=== PATIENT | female | born 1970 | race Caucasian/White ===

== ENCOUNTER → 2016-10-27 | Outpatient (CLI) | payer OTHER ==
[~2016-10-27] MED LIST: ALBU18002 INH; ALBU1AER9 INH; AMITIZIA PO; AMITRIPTYLINE PO; AMT24 PO; ATROPINE SULFATE 0.1 MG/ML 5ML SYR ONE; BENZ100C84 PO; BUDE0.5S INH; CETI10TA84 PO; CHOL20009 PO; CLR10 PO; CRG3125 PO; CYM30 PO; DICY10CA12 PO; DOBUTamine HCL 12.5 MG/ML 20 ML VIAL ONE; DOMPERIDONE PO; DOXY100C76 PO; EPIN1INJ37 IM; EPP3/2 IM; FERR1TAB9 PO; FERR325T PO; FLNIN/ NAE; FNTTP50 TOP; HYDR2.5C37 TOP; HYDR4TAB2 PO; INDO75CA PO; INSDGIPEN SC; IPRASOL4 NEB; ISOS30TA35 PO; LACTTAB13 PO; LATA0.009 OP; LATA0.009 OPB; LORA10TA5 PO; LOSA100T65 PO; LPT40 PO; MAGN400T5 PO; MENT1800 TOP; METOPROLOL TARTRATE 1 MG/ML VIAL ONE; MOME100A INH; MOME200A INH; NRN600 PO; NTRGSL4 SL; ONDA8TAB6 PO; OXGN; PERFLUTREN LIPID MICROSPHERE (DEFINITY) IV ONE; PERPHENAZINE PO; PHEN1CAP PO; POLY335019 PO; POLY335040 PO; PRED20TA2 PO; PREG75CA PO; PROM25TA9 PO; PRT/40 PO; RANI150T3 PO; RANI300T PO; RST/30 PO; SENN-104 PO; SITA100T3 PO; SNG10 PO; SOLI10TA2 PO; TEMA30CA4 PO; TRC145 PO; TRMO115 TOP; ZOLP5TAB6 PO; [UNRECOGNIZED DRUG - OTHER] PO
--- NOTE | 2016-10-27 16:42 | DOBUTAMINE ECHO ---
*NOTICE TO RECEIVING REPUBLICAN AGENCY This information is strictly Confidential and protected under [place] law. [place] law prohibits you from making any further disclosure of this information unless further disclosure is expressly permitted by the written consent of the person to whom it pertains or is authorized by law. A general authorization for the release of medical or other information is not sufficient for this purpose. Hospital accepts no responsibility if the information is made available to any other person, INCLUDING THE PATIENT. Interpretation Summary * STRESS STUDY: Normal pharmacologic stress echocardiogram. No echocardiographic or ECG evidence of myocardial ischemia having achieved heart rate adequate for diagnostic purposes. * -- Conclusions -- * STRESS STUDY: Normal pharmacologic stress echocardiogram. No echocardiographic or ECG evidence of myocardial ischemia having achieved heart rate adequate for diagnostic purposes. Procedure Details * DOBUTAMINE ECHO, CPT#86250 * ECHO COLOR FLOW, CPT #11021 * ECHO DOPPLER, CPT #72328 * The study was technically difficult with many images being suboptimal in quality. * A contrast injection of Definity was performed to improve assessment of LV function. * Contrast was injected into an intravenous site in the right arm. * One vial of Definity ultrasound contrast was diluted in normal saline to a total volume of 10 ml. A total of '6' ml of solution was administered during imaging. * Lot # [id number] of Definity utilized for procedure. * Expiration date NOV 24. * The attending nurse who injected the contrast agent was MARK CHAKRABORTY CPL, RN. Left Ventricle * The left ventricle is normal in size. * There is moderate concentric left ventricular hypertrophy. * Ejection Fraction = 50-55%. * The left ventricular wall motion is normal at rest. Right Ventricle * The right ventricle is grossly normal size. * The right ventricular systolic function is normal. Atria * The left atrial size is normal. * Right atrial size is normal. * The interatrial septum is intact with no evidence for an atrial septal defect. Mitral Valve * The mitral valve is grossly normal. * Significant mitral regurgitation is absent. Tricuspid Valve * The tricuspid valve is not well visualized, but is grossly normal. * Significant tricuspid regurgitation is absent. Aortic Valve * The aortic valve is not well visualized. * No hemodynamically significant valvular aortic stenosis. * There is no significant aortic regurgitation. Pulmonic Valve * The pulmonic valve is not well visualized. Great Vessels * The aortic root and proximal ascending aorta are normal sized. Pericardium * There is no pericardial effusion. Stress Parameters * Normal baseline electrocardiogram. * Stress ECG: No ST changes. No arrhythmias. * The stress portion of this study was personally supervised by the undersigned interpreting physician. * Rest heart rate was '77' BPM. * Rest blood pressure was '114/67' * Maximum heart rate achieved was 148 bpm. * Maximum heart rate was 85 % of maximum age-predicted heart rate. * Maximum blood pressure was '141/74' * Maximum Dobutamine infusion rate was '50' mcg/kg/min. * A total of 0.5 mg of intravenous Atropine was used to supplement Dobutamine for heart rate response. * Dobutamine infusion was terminated due to achieving target heart rate * A total of 2.50 mg of IV Metoprolol was administered to reverse Dobutamine-induced tachycardia. MMode 2D Measurements and Calculations IVSd 1.5 cm IVSs 2.2 cm LVIDd 4.4 cm LVIDs 3.4 cm LVPWd 1.3 cm LVPWs 1.1 cm IVS/LVPW 1.2 FS 23.4 % EDV(Teich) 89.1 ml ESV(Teich) 47.1 ml EF(Teich) 47.1 % EDV(cubed) 86.9 ml ESV(cubed) 39.0 ml EF(cubed) 55.1 % % IVS thick 48.3 % % LVPW thick -13.68 % LV mass(C)d 237.5 grams LV mass(C)dI 115.8 grams/m\S\2 LV mass(C)s 217.9 grams LV mass(C)sI 106.2 grams/m\S\2 SV(Teich) 42.0 ml SI(Teich) 20.4 ml/m\S\2 SV(cubed) 47.9 ml SI(cubed) 23.4 ml/m\S\2 Ao root diam 3.2 cm Ao root area 8.1 cm\S\2 ACS 1.8 cm LA dimension 3.5 cm LA/Ao 1.1 LVOT diam 2.0 cm LVOT area 3.3 cm\S\2 LVAd ap4 37.8 cm\S\2 LVLd ap4 9.6 cm EDV(MOD-sp4) 122.7 ml EDV(sp4-el) 125.7 ml LVAs ap4 24.4 cm\S\2 LVLs ap4 7.9 cm ESV(MOD-sp4) 63.8 ml ESV(sp4-el) 64.3 ml EF(MOD-sp4) 48.0 % EF(sp4-el) 48.8 % LVAd ap2 26.5 cm\S\2 LVLd ap2 8.9 cm EDV(MOD-sp2) 67.2 ml EDV(sp2-el) 66.9 ml LVAs ap2 16.5 cm\S\2 LVLs ap2 7.4 cm ESV(MOD-sp2) 31.0 ml ESV(sp2-el) 31.1 ml EF(MOD-sp2) 53.9 % EF(sp2-el) 53.5 % LVLd %diff -7.81 % EDV(MOD-bp) 93.4 ml LVLs %diff -6.61 % ESV(MOD-bp) 45.8 ml EF(MOD-bp) 50.9 % SV(MOD-sp4) 58.9 ml SI(MOD-sp4) 28.7 ml/m\S\2 SV(MOD-sp2) 36.2 ml SI(MOD-sp2) 17.7 ml/m\S\2 SV(MOD-bp) 47.6 ml SI(MOD-bp) 23.2 ml/m\S\2 SV(sp4-el) 61.3 ml SI(sp4-el) 29.9 ml/m\S\2 SV(sp2-el) 35.9 ml SI(sp2-el) 17.5 ml/m\S\2 Doppler Measurements and Calculations MV E max latonia 78.8 cm/sec MV A max lat[place] 81.2 cm/sec MV E/A 0.97 MV P1/2t max lat[place] 103.5 cm/sec MV P1/2t 47.9 msec MVA(P1/2t) 4.6 cm\S\2 MV dec slope 633.6 cm/sec\S\2 MV dec time 0.23 sec PA V2 max 105.9 cm/sec PA max PG 4.5 mmHg
== END | disposition home or self-care (01) ==
LOC: C.CPL 11:39
PROVIDERS: ATTEND Internal Medicine Cardiovascular Disease
DX: Z01.810 Encounter for preprocedural cardiovascular examination (principal); I10 Essential (primary) hypertension; E78.5 Hyperlipidemia, unspecified

== ENCOUNTER 2016-10-30 06:38 | Day surgery (SDC) | payer OTHER ==
[2016-10-16 09:52] VITALS: BMI 53.0
--- NOTE | 2016-10-16 10:44 | PAT Medication Instructions ---
Service Date Oct 16, 2016. Current Home Medication List Albuterol (Proair Hfa), 2 PUFFS INH QID PRN for SOB/Wheezing Atorvastatin (Atorvastatin Calcium), 40 MG PO HS Benzonatate (Tessalon Perles), 1 CAP PO TID PRN for Cough Budesonide (Inhalation) (Pulmicort), 0.5 MG INH DAILY Carvedilol (Carvedilol), 3.125 MG PO BID Cetirizine (Zyrtec), 10 MG PO QAM Cholecalciferol (Vitamin D), 4,000 INTER.UNIT PO HS Dicyclomine Hcl (Dicyclomine Hcl), 10 MG PO TID Doxycycline Monohydrate (Monodox), 100 MG PO BID Duloxetine HCl (Duloxetine HCl), 30 MG PO HS Epinephrine (Epinephrine), 0.3 MG IM UD PRN for ALLERGIC REACTION Fenofibrate (Fenofibrate), 145 MG PO HS Fentanyl (Duragesic), 50 MCG TOP CQ72HR Ferrous Sulfate (Ferrous Sulfate), 325 MG PO BID Ferrous Sulfate Dried (Sm Slow Release Iron), 286 MG PO QAM Fluticasone Propionate (Fluticasone Propionate), 2 SPRAYS OBDULIA DAILY Gabapentin (Gabapentin), 600 MG PO TID Hydrocortisone 2.5% (Rectal) (Anusol-Hc 2.5%), 1 APPLN TOP BID PRN for UNDECIDED Hydromorphone Hcl (Dilaudid), 2 MG PO Q6H PRN for Pain Indomethacin Ext Rel (Indocin Ext Rel), 75 MG PO QAM Insulin Glargine (Lantus Solostar), 23 UNITS SC HS PRN for Elevated Blood Sugar Ipratropium-Albuterol (Duoneb), 1 TREATMENT NEB Q4H PRN for SOB/Wheezing Isosorbide Mononitrate Ext Rel (Imdur Ext Rel), 30 MG PO QAM Latanoprost 0.005% Oph (Xalatan 0.005% Oph), 1 DROP OPB HS Loratadine (Claritin), 10 MG PO QAM Losartan Potassium (Cozaar), 100 MG PO QAM Magnesium Oxide (Mag-Ox), 400 MG PO QAM Menthol (Topical Analgesic) (Biofreeze Roll-On), 1 APPLN TOP QID Mometasone Furoate-Formoterol (Dulera 100/5 Mcg), 1 PUFF INH BID Montelukast Sod (Montelukast Sodium), 10 MG PO HS Oxygen (Oxygen), 2 LITERS NA PRN PRN for Shortness of Breath Pantoprazole (Pantoprazole Sodium), 40 MG PO QAM Polyethylene (Miralax Powder Packet), 17 GM PO QAM Probiotic Product (Bacid), 1 TAB PO BID Promethazine Hcl (Phenergan), 25 MG PO Q6H PRN for Nausea Ranitidine Hcl (Zantac), 300 MG PO BID Sennosides-Docusate Sodium (Senna-S), 3 TABS PO TID Sitagliptin Phosphate (Januvia), 100 MG PO QAM Solifenacin (Vesicare), 10 MG PO QAM Temazepam (Restoril), 30 MG PO HS Triamcinolone Acet (Triamcinolone Acetonide), 1 APPLN TOP BID Zolpidem Tartrate (Zolpidem Tartrate), 5 MG PO HS PRN for Sleep Medication Instructions For Your Scheduled Surgery Epinephrine (Epinephrine), 0.3 MG IM UD PRN for ALLERGIC REACTION (continue as directed) Dicyclomine Hcl (Dicyclomine Hcl), 10 MG PO TID (to be completed prior to surgery) - Hold the following medications 24 hours prior to surgery: Triamcinolone Acet (Triamcinolone Acetonide), 1 APPLN TOP BID Menthol (Topical Analgesic) (Biofreeze Roll-On), 1 APPLN TOP QID Hydrocortisone 2.5% (Rectal) (Anusol-Hc 2.5%), 1 APPLN TOP BID PRN for UNDECIDED Fentanyl (Duragesic), 50 MCG TOP CQ72HR (avoid placement over surgery site) - Hold the following medications the morning of surgery: Solifenacin (Vesicare), 10 MG PO QAM Sitagliptin Phosphate (Januvia), 100 MG PO QAM Ranitidine Hcl (Zantac), 300 MG PO BID Sennosides-Docusate Sodium (Senna-S), 3 TABS PO TID Polyethylene (Miralax Powder Packet), 17 GM PO QAM Probiotic Product (Bacid), 1 TAB PO BID Losartan Potassium (Cozaar), 100 MG PO QAM Magnesium Oxide (Mag-Ox), 400 MG PO QAM Loratadine (Claritin), 10 MG PO QAM Ferrous Sulfate Dried (Sm Slow Release Iron), 286 MG PO QAM Ferrous Sulfate (Ferrous Sulfate), 325 MG PO BID Dicyclomine Hcl (Dicyclomine Hcl), 10 MG PO TID Cetirizine (Zyrtec), 10 MG PO QAM Benzonatate (Tessalon Perles), 1 CAP PO TID PRN for Cough - Take the following medications the morning of surgery with a sip of water ( otherwise nothing to eat or drink after midnight including chewing gum or mints) Promethazine Hcl (Phenergan), 25 MG PO Q6H PRN for Nausea Pantoprazole (Pantoprazole Sodium), 40 MG PO QAM Mometasone Furoate-Formoterol (Dulera 100/5 Mcg), 1 PUFF INH BID Isosorbide Mononitrate Ext Rel (Imdur Ext Rel), 30 MG PO QAM Ipratropium-Albuterol (Duoneb), 1 TREATMENT NEB Q4H PRN for SOB/Wheezing Indomethacin Ext Rel (Indocin Ext Rel), 75 MG PO QAM Hydromorphone Hcl (Dilaudid), 2 MG PO Q6H PRN for Pain (okay to take up to 4 hours prior to surgery if needed) Gabapentin (Gabapentin), 600 MG PO TID Fluticasone Propionate (Fluticasone Propionate), 2 SPRAYS OBDULIA DAILY Carvedilol (Carvedilol), 3.125 MG PO BID Budesonide (Inhalation) (Pulmicort), 0.5 MG INH DAILY Albuterol (Proair Hfa), 2 PUFFS INH QID PRN for SOB/Wheezing (bring with you to hospital morning of surgery) - Hold the following medications as scheduled the night before surgery: Fenofibrate (Fenofibrate), 145 MG PO HS - Take the following medications as scheduled the night before surgery: Zolpidem Tartrate (Zolpidem Tartrate), 5 MG PO HS PRN for Sleep Temazepam (Restoril), 30 MG PO HS Ranitidine Hcl (Zantac), 300 MG PO BID Sennosides-Docusate Sodium (Senna-S), 3 TABS PO TID Promethazine Hcl (Phenergan), 25 MG PO Q6H PRN for Nausea Probiotic Product (Bacid), 1 TAB PO BID Montelukast Sod (Montelukast Sodium), 10 MG PO HS Mometasone Furoate-Formoterol (Dulera 100/5 Mcg), 1 PUFF INH BID Latanoprost 0.005% Oph (Xalatan 0.005% Oph), 1 DROP OPB HS Ipratropium-Albuterol (Duoneb), 1 TREATMENT NEB Q4H PRN for SOB/Wheezing Insulin Glargine (Lantus Solostar), 23 UNITS SC HS PRN for Elevated Blood Sugar Hydromorphone Hcl (Dilaudid), 2 MG PO Q6H PRN for Pain Gabapentin (Gabapentin), 600 MG PO TID Fluticasone Propionate (Fluticasone Propionate), 2 SPRAYS OBDULIA DAILY Ferrous Sulfate (Ferrous Sulfate), 325 MG PO BID Cholecalciferol (Vitamin D), 4,000 INTER.UNIT PO HS Duloxetine HCl (Duloxetine HCl), 30 MG PO HS Dicyclomine Hcl (Dicyclomine Hcl), 10 MG PO TID Carvedilol (Carvedilol), 3.125 MG PO BID Benzonatate (Tessalon Perles), 1 CAP PO TID PRN for Cough Budesonide (Inhalation) (Pulmicort), 0.5 MG INH DAILY Atorvastatin (Atorvastatin Calcium), 40 MG PO HS Albuterol (Proair Hfa), 2 PUFFS INH QID PRN for SOB/Wheezing If you have any questions please call us at [phone] (Jada Owen PA-C) or [phone] or [phone]
[2016-10-16 11:03] LABS: BASO % 0.7 %; BASO ABS # 0.05 K/uL (0-0.2); COMPLETE YES; EOS % 13.3 %; HEMATOCRIT 35.5 % (37-47); IG% 0.4 %; LYMPH % 28.6 %; LYMPH ABS # 2.19 K/uL (1.2-3.4); MEAN CELL VOLUME 98.6 fL (80-100); MEAN CORPUSCULAR HEMOGLOBIN 31.9 pg (25-34); MEAN CORPUSCULAR HGB CONC 32.4 g/dl (32-36); MEAN PLATELET VOLUME 10.8 fL (7.4-10.4); MONO % 4.8 %; NEUT % 52.2 %; PLATELET COUNT 325 K/uL (130-400); WHITE BLOOD COUNT 7.65 K/uL (4.8-10.8)
[2016-10-16 11:09] LABS: MANUAL MICROSCOPIC REQUIRED? YES; URINE APPEARANCE CLOUDY (CLEAR); URINE BILIRUBIN NEG (NEG); URINE NITRITE NEG (NEG); URINE PH 7.5 (4.5-7.5); UROBILINOGEN NEG (NEG)
--- NOTE | 2016-10-16 11:13 | DIAGNOSTIC IMAGING REPORT ---
CHEST PREADMISSION(PA/LAT) CLINICAL HISTORY: PAT preoperative evaluation COMPARISON STUDY: 06/10/2016 FINDINGS: The bones soft tissues and hemidiaphragms are normal. The cardiomediastinal silhouette is normal. The lungs are clear. The pulmonary vasculature is normal. IMPRESSION: Negative chest. Electronically signed by: Ramon Brambila M.D. 10/16/2016 11:11 AM Dictated Date/Time: 10/16/2016 11:11 AM
[2016-10-16 11:50] LABS: REVIEW REQ? NO; SULFASALICYLIC ACID NEG (NEG)
[2016-10-16 11:52] LABS: URINE COLOR RED
[2016-10-16 12:01] LABS: URINE RBC >30 /hpf (0-4)
[2016-10-16 12:02] LABS: URINE BACTERIA 1+ (NEG)
--- NOTE | 2016-10-29 09:23 | HISTORY & PHYSICAL EXAMINATION ---
DATE OF ADMISSION: 10/30/2016 SUBJECTIVE AND CHIEF COMPLAINT: Left shoulder pain. HISTORY OF PRESENT ILLNESS: This is a patient who has a long history of left shoulder pain. She was treated conservatively with physical therapy, antiinflammatory medications, activity modifications, corticosteroid injections; however, she has failed conservative management and she is now being set up for surgical treatment. PAST MEDICAL HISTORY: History of NM, hypertension, hypercholesterolemia, history of palpitations, asthma, COPD, sleep apnea with use of CPAP, history of stroke, multiple sclerosis, diabetes treated with insulin, anemia, history of DVT, spine and back problems, obesity, acid reflux, history of kidney failure, and history of breast, stomach, and uterine cancer. SOCIAL HISTORY: The patient denies alcohol and tobacco use. FAMILY HISTORY: Noncontributory. PAST SURGICAL HISTORY: Bilateral knee surgeries. CURRENT MEDICATIONS: Promethazine 25 mg 1 p.o. q. 6 hours as needed for nausea, Lantus insulin, Dilaudid 2 mg p.o. q. 4 hours as needed for pain, magnesium oxide 400 mg, ProAir HFA 90 mcg 2 puffs every 4 hours as needed for shortness of breath, Xalatan 0.005% eyedrops 1 drop in each eye at bedtime, VESIcare 5 mg 1 p.o. daily, Lipitor 40 mg 1 p.o. daily, gabapentin 600 mg 1 p.o. t.i.d., Imdur 30 mg 1 p.o. daily, losartan 100 mg 1 p.o. daily, Restoril 30 mg 1 p.o. at bedtime, Tricor 145 mg 1 p.o. daily, Singulair 10 mg 1 p.o. daily, Pulmicort 0.5 mg/2 mL suspension for nebulizer 2 mL in the nebulizer 2 times per day, senna with docusate 8.6 mg/50 mg 2 p.o. daily, Claritin Liqui-Gel 10 mg 1 p.o. daily, fentanyl 50 mcg patch 1 patch every 72 hours, pantoprazole 40 mg 1 p.o. daily, EpiPen as needed, triamcinolone 0.1% topical cream apply to affected area b.i.d., Januvia 100 mg 1 p.o. daily, Zyrtec 10 mg 1 p.o. daily, zolpidem 5 mg 1 p.o. daily, Zantac 300 mg 1 p.o. at bedtime, Proctozone-HC 2.5% cream apply to affected area 2-4 times per day, MiraLax daily, Flonase 50 mcg 1-2 sprays in each nostril daily, Dulera 200 mcg/5 mcg 2 puffs b.i.d., doxycycline 100 mg 1 p.o. daily, vitamin D3 400 units p.o. daily, Coreg 3.125 mg 1 p.o. b.i.d., and Voltaren 1% gel apply to affected area 4 times per day. ALLERGIES: PENICILLIN, CELEBREX, NORTRIPTYLINE, MORPHINE, TRAMADOL, OXYCODONE, REGLAN, HYDROCODONE AND BENADRYL. OBJECTIVE AND PHYSICAL EXAMINATION: GENERAL: The patient is alert and oriented x3. She is in no acute distress. She is a well-dressed, well-nourished 45-year-old female. Her affect is appropriate. CARDIOVASCULAR: Heart has a regular rhythm and rate without murmurs. LUNGS: Clear to auscultation bilateral. HEART: Radial pulses +2/4. Cap refill is less than 2 seconds. LYMPHATIC: No evidence of any swollen lymph nodes. MUSCULOSKELETAL: Upon inspection of the patient's left shoulder, there is no significant swelling, ecchymosis or erythema noted. With passive range of motion, she has pain within the impingement arc. She has positive cross-arm impingement testing. Also positive Neer's and positive Bunch sign. She has some weakness with empty can testing in the left upper extremity; however, she is able to resist. SKIN: There are no scars, rashes or ulcers noted. NEUROLOGIC: Sensation normal and intact distally in the ulnar, radial and median nerve distributions. X-RAY EXAM: MRI of the left shoulder notes rotator cuff tendinosis of the supraspinatus tendon. There is also mild subacromial bursitis. There is also AC joint arthritis. ASSESSMENT AND DIAGNOSES: 1. Left shoulder impingement syndrome. 2. Acromioclavicular joint arthritis. 3. Rotator cuff arthropathy. PLAN: Above assessment was discussed with the patient. At this time, it was recommended the patient undergo a left shoulder arthroscopy with debridement of rotator cuff, subacromial decompression with acromioplasty, and distal clavicle excision. All potential risks, benefits, complications, alternatives, and rehab have been discussed with the patient. At this time, she wishes to proceed with surgery as indicated. She will be scheduled for the surgery on 10/30/2016.
[~2016-10-30] VITALS: Ht 165.1 cm; Wt 145.8 kg
[~2016-10-30 06:38] MED LIST changes: -ALBU18002 INH; -AMT24 PO; -ATROPINE SULFATE 0.1 MG/ML 5ML SYR ONE; +BUPIVACAINE 0.5 % 5 MG/1 ML PF 10ML VIAL ONE; +CLINDAMYCIN 600 MG/54 ML D5W IV SCH; -CLR10 PO; -DOBUTamine HCL 12.5 MG/ML 20 ML VIAL ONE; -EPP3/2 IM; +LACTATED RINGER'S 1000ML 1,000 ML IV SCH; -LATA0.009 OP; -METOPROLOL TARTRATE 1 MG/ML VIAL ONE; -MOME200A INH; -NTRGSL4 SL; -ONDA8TAB6 PO; -PERFLUTREN LIPID MICROSPHERE (DEFINITY) IV ONE; -PHEN1CAP PO; -POLY335019 PO; -PRED20TA2 PO; -PREG75CA PO; -RANI150T3 PO; -TEMA30CA4 PO
[2016-10-30 08:22] VITALS: BP 148/70; PULSE 75; TEMP 36.5; O2SAT 96; Ht 165.1 cm; Wt 145.8 kg
[2016-10-30] MEDS ORDERED: GLYCOPYRROLATE INJ 0.2 MG/ML VIAL ONE ×2 (08:30→12:19)
[2016-10-30] MEDS ORDERED: ROCURONIUM BROMIDE 10 MG/ML 5 ML VIAL ONE (08:30)
[2016-10-30] MEDS ORDERED: FENTANYL CITRATE INJ 50 MCG/1 ML 2 ML VIAL ONE ×2 (08:30→11:12)
[2016-10-30] MEDS ORDERED: ONDANSETRON INJ 2 MG/ML 2 ML VIAL ONE (08:30)
[2016-10-30] MEDS ORDERED: PROPOFOL IV EMULSION 10 MG/ML 20 ML VIAL IV ONE ×3 (08:30→13:33)
[2016-10-30] MEDS ORDERED: LIDOCAINE HCL 2% 2 ML VIAL (20MG/ML) ONE (08:30)
[2016-10-30] MEDS ORDERED: DEXAMETHASONE SOD INJ 4 MG/ML VIAL ONE (08:30)
[2016-10-30] MEDS ORDERED: NEOSTIGMINE METHYLSULFATE 5 MG/5 ML SYR ONE (08:30)
[2016-10-30] MEDS ORDERED: MIDAZOLAM HCL 1 MG/ML 2ML VIAL ONE ×2 (08:31→10:06)
[2016-10-30] MEDS ORDERED: EpHEDrine SULFATE INJ 50 MG/ML AMP IV PRN (09:15)
[2016-10-30] MEDS ORDERED: MEPERIDINE HCL 25 MG/ML CARP IV PRN (09:15)
[2016-10-30] MEDS ORDERED: ATROPINE SULFATE 0.1 MG/ML 5ML SYR IV PRN (09:15)
[2016-10-30] MEDS ORDERED: ONDANSETRON INJ 2 MG/ML 2 ML VIAL IV PRN (09:15)
[2016-10-30] MEDS ORDERED: HYDROmorphone INJ 1 MG/ML SYR IV PRN ×2 (09:15→13:15)
[2016-10-30] MEDS ORDERED: LABETALOL HCL IV 5 MG/ML 20ML IV PRN (09:15)
[2016-10-30] MEDS ORDERED: FENTANYL CITRATE INJ 50 MCG/1 ML 2 ML VIAL IV PRN (09:15)
--- NOTE | 2016-10-30 10:10 | History & Physical Bridge Note ---
H&P Re-Evaluation Bridge Note: I have examined the patient, reviewed the History & Physical and in the interval since the performance of the History & Physical I have noted the following changes of clinical significance: No changes noted
[2016-10-30] MEDS ORDERED: BACITRACIN 50000 UNIT VIAL ONE (10:48)
[2016-10-30] MEDS ORDERED: BUPIVACAINE/EPINEPHRINE 0.25% 1:200,000 30 ML VIAL ONE (10:48)
[2016-10-30] MEDS ORDERED: SUCCINYLCHOLINE 100MG/5ML SYR IV ONE (11:12)
[2016-10-30] MEDS ORDERED: EpHEDrine SULFATE 50MG/5ML SYR ONE (11:12)
[2016-10-30] MEDS ORDERED: PHENYLEPHRINE 100MCG/ML 5ML SYR ONE (11:12)
[2016-10-30] MEDS ORDERED: PHENYLEPHRINE HCL INJ 10 MG/ML VIAL ONE (12:11)
--- NOTE | 2016-10-30 13:02 | Discharge Instructions ---
Discharge Instructions Date of Service Oct 30, 2016. Admission Reason for Admission: Left Shoulder Impingement Syndrome, Rtc Arthropath Discharge Discharge Diagnosis / Problem: left shoulder impingement syndrome Discharge Goals Goal(s): Decrease discomfort, Improve function Activity Recommendations Activity Limitations: per Instructions/Follow-up section . Instructions / Follow-Up Instructions / Follow-Up U DISCHARGE INSTRUCTIONS: SHOULDER ARTHROSCOPY with Distal Clavicle Excision SELF CARE INSTRUCTIONS AFTER: A. You are allowed to use your arm actively as comfort allows. Recommend NOT doing repetitive overhead activity or heavy lifting. B. You should start Physical Therapy within 1-3 days from your surgery. You will be provided a prescription with specific restrictions, if needed, at time of discharge. C. Continue the sling for comfort for 14 days after surgery. A. At 48 hours post-operatively, you may change your dressing. . (Leave white steri-strips intact if present). Use band-aids and change daily. You are allowed to shower at this time and get the incision area wet, but DO NOT soak or submerge incision area in water. (No baths, swimming pools, hot tubs) B. Do NOT apply soap or any ointment/lotions directly over incision. C. You may use ice as needed to operative shoulder SPECIAL CARE INSTRUCTIONS: VERY IMPORTANT TO READ AND REVIEW A. There are a few signs you need to watch for after you are home. Call [facility] at [phone] if you experience any of the following: a. Increased severe shoulder pain. Some pain is expected especially when you exercise b. Increased swelling in your shoulder or arm; pain or swelling in either upper extremity. (Note: swelling and stiffness is normal and expected for several weeks post op, depending on type of shoulder surgery you had). c. Any fluid or drainage from the incision; redness of the incision. d. Shortness of breath or chest pain. B. Please call [facility] at [phone] if you have any questions or concerns about your operation or recovery. C. Call your physician if: a. Temperature is greater than 101 degrees (F). b. Pain is not relieved by prescribed pain medications. c. Increase drainage or redness from incision. d. Unanswered questions or concerns. D. Pain Medication: a. You will be prescribed pain medication upon discharge that should last till your first post-operative appointment. b. You may also take Advil or Ibuprofen between medication doses if you do not have any contraindication to taking them. c. You may also take Advil or Ibuprofen in place of your pain medication if the pain is tolerable. d. If you experience nausea and/or skin rash, discontinue this medication and contact our office for an alternative medication. e. Caution- narcotic pain medication can cause constipation. FOLLOW UP VISIT: Please call [facility] at [phone] to schedule a follow up appointment 10-14 days from your surgery date. Current Hospital Diet Patient's current hospital diet: Discharge Diet Recommended Diet: Diabetes Type 1 Diet Procedures Procedures Performed: Left Shoulder Arthroscopic Subacromial Decompression, Acromioplasty, Distal Clavicle Excision, Debridement, Rotator Cuff Pending Studies Studies pending at discharge: no Medical Emergencies . Who to Call and When: Medical Emergencies: If at any time you feel your situation is an emergency, please call 911 immediately. . Non-Emergent Contact Non-Emergency issues call your: Surgeon Call Non-Emergent contact if: temperature is above 101, your pain is not controlled, your pain is worsening, wound has increased drainage, wound has increased redness . "Provider Documentation" section prepared by Sy Frederick. VTE Core Measure Inpt VTE Proph given/why not?: Treatment not indicated
--- NOTE | 2016-10-30 13:34 | [facility] Post Operative Brief Note ---
Immediate Operative Summary Operative Date Oct 30, 2016. Pre-Operative Diagnosis Left shoulder impingement syndrome, acromioclavicular joint degenerative joint disease, rotator cuff arthropathy Post-Operative Diagnosis Left shoulder impingement syndrome, acromioclavicular joint degenerative joint disease, partial tear rotator cuff articular surface 40%, partial tear glenoid labrum, synovitis glenohumeral joint, rotator cuff arthropathy Procedure(s) Performed Left Shoulder Arthroscopic Subacromial Decompression with Acromioplasty, Distal Clavicle Excision, Debridement Rotator Cuff, Debridement Glenoid Labrum, Synovectomy Glenohumeral fransicolint Surgeon Dr. Matson Supervisor [employer] Surgeon(s) Sy Frederick PA-C Estimated Blood Loss 3cc Findings See Dict Specimens None Drains None Anesthesia GLMA w/ interscalene block Complication(s) None Disposition Recovery Room / PACU
--- NOTE | 2016-10-30 14:15 | Anesthesiology Progress Note ---
Anesthesia Post Op Note Date & Time Oct 30, 2016 at 14:16 Vital Signs Pain Intensity: 0 Vital Signs Past 12 Hours Date Time Temp Pulse Resp B/P Pulse Ox O2 Delivery O2 Flow Rate FiO2 10/30/16 14:05 82 16 94/50 96 Room Air 10/30/16 13:55 87 16 92/53 100 Nasal Cannula 2 10/30/16 13:45 82 16 90/47 100 Mask 10 10/30/16 13:35 84 16 103/60 100 Mask 10 10/30/16 13:27 36.6 93 16 89/56 93 Mask 10 10/30/16 08:22 36.5 75 18 148/70 96 Room Air Notes Mental Status: alert / awake / arousable, participated in evaluation Pt Amnestic to Procedure: Yes Nausea / Vomiting: adequately controlled Pain: adequately controlled Airway Patency, RR, SpO2: stable & adequate BP & HR: stable & adequate Hydration State: stable & adequate Anesthetic Complications: no major complications apparent
[2016-10-30 14:40] VITALS: BP 95/53; PULSE 91; TEMP 36.6; O2SAT 93
[2016-10-30 15:10] VITALS: BP 110/53; PULSE 74; TEMP 36.3; O2SAT 95
[2016-10-30 15:40] VITALS: BP 103/52; PULSE 83; TEMP 36.4; O2SAT 98
--- NOTE | 2016-10-30 20:36 | OPERATIVE REPORT ---
DATE OF OPERATION: 10/30/2016 PREOPERATIVE DIAGNOSES: 1. Left shoulder rotator cuff arthropathy, possible partial tear. 2. Subacromial impingement syndrome. 3. Acromioclavicular joint degenerative joint disease. POSTOPERATIVE DIAGNOSES: 1. Left shoulder partial tear of the rotator cuff, glenohumeral surfaces involving 40%. 2. Partial tear of the glenoid labrum with a stable biceps anchor. 3. Subacromial impingement syndrome. 4. Acromioclavicular joint degenerative joint disease. 5. Synovitis of the shoulder. PROCEDURES: 1. Left shoulder arthroscopy with debridement of the articular surface rotator cuff. 2. Debridement of the glenoid labrum. 3. Synovectomy. 4. Subacromial decompression with acromioplasty. 5. Distal clavicle excision of 10 mm distal clavicle. SURGEON: Gian Matson DO VALIDATION CONSULTANT: GIANFRANCO Day who was present for patient positioning, sterile prep and drape, management of retractors and instruments. He was present through the critical portions of the case including wound closure, application of sterile dressing and transport of the patient to recovery. ANESTHESIA: General LMA with interscalene block. SPECIMENS: None. DRAINS: None. COMPLICATIONS: None. BLOOD LOSS: 3 mL. PERTINENT HISTORY OF PRESENT ILLNESS: This is a 45-year-old female who has had progressive ongoing left shoulder pain for the last several years. It has been attempted to be treated conservatively with home exercises, physical therapy, observation therapy, steroid injections, and lifestyle modification. The patient continued to have significant pain which has awakened her from sleep and limited her activities of daily living. She had an MRI which demonstrated at least a partial tear of the rotator cuff with cuff arthropathy, subacromial impingement, and AC joint degenerative joint disease. The patient was scheduled for surgery as indicated. All potential risks, benefits, complications, alternatives, rehab, potential for incomplete relief of symptoms, need for further surgery, DVT, PE, , persistent pain, swelling, scarring, weakness, neurovascular injury, wound complications were discussed with the patient. The patient decided to proceed with the procedure as indicated. DESCRIPTION OF PROCEDURE: After interscalene block was administered in the preop holding area, the patient was then taken to the operative suite and placed supine on the operating room table. I reviewed the consent and identification of proper operative site, the patient was anesthetized, LMA was placed. Next, the patient was then placed in the [facility] positioner and she was placed in the beach chair position with the left upper extremity being sterilely prepped and draped in usual fashion. Next, 18-gauge spinal needle was inserted into the posterior soft spot portal of the shoulder followed by injection of approximately 20 mL of 0.5% Marcaine with epinephrine. Next, an 11 blade scalpel incision was made posteriorly followed as a blunt trocar and sleeve camera and inflow. Next, under direct visualization, anterior portal site was developed using 18-gauge spinal needle passed adjacent to the coracoid process. Next, the blunt-tipped probe was inserted anteriorly. Next, sequential diagnostic arthroscopy commenced noting intact biceps tendon and no significant tenosynovitis. There was noted to be partial tearing of the glenoid labrum with an intact and stable biceps anchor. Next, there was noted to be a partial surface rotator cuff tear involving the supraspinatus and infraspinatus approximately 40% of the cuff. This was marked using an 18-gauge spinal needle Followed by placement of loop PDS #1. Next, a 4.5 mm sucker shaver was then used to debride the undersurface of the rotator cuff to stable tissue. There was maintenance of the rotator cuff cable. Next, attention was then directed toward the glenoid and the glenoid labrum was then debrided using a 4.5 mm sucker shaver and an Arthrocare ablation wand. Next, there was also noted to be synovitis throughout the shoulder joint. Synovectomy was performed with a whirlwind ablation wand. The articular surfaces of the humeral head and the glenoid noted to be stable. There was no significant articular surface defects of the humerus or the glenoid. The inferior gutter was noted to be intact without excessive laxity or patulous tissue. No loose bodies in the inferior aspect of the shoulder joint capsule. Next, the arthroscope was then directed into the subacromial space posteriorly and using 18-gauge spinal needle, the lateral portal placement was established and then incised with an 11 blade scalpel. This was then followed by placement of blunt trocar and sleeve. Next, upon first look, arthroscopy was noted to be significant bursitis in the subacromial bursa. A 4.5 mm sucker shaver was then used to perform a bursectomy in the subacromial space. Next, after this was completed, there was noted to be a large anterior spur of the acromion with downsloping laterally. There was also noted to be prominence of the distal clavicle. At this point, the rotator cuff was evaluated with a blunt probe noted to be stable and intact at least 60% of the rotator cuff appeared to be intact on the bursal surface. Next, the PDS suture was then withdrawn. There was to be no formal rotator cuff repair. Next, the 5.5 mm barrel bur was then used to perform acromioplasty. Next, the 5.5 mm barrel bur was then used to perform a distal clavicle excision, removing approximately 10 mm of distal clavicle. First to the lateral portal, then to be finished through the anterior portal under direct visualization. All particulate debris was then flushed in the subacromial space. Next, the instruments were removed from the shoulder. All excess lavage solution was removed from the joint and the bursal space and this was then followed by closure of the portal sites with interrupted 3-0 Vicryl and 3-0 nylon sutures followed by placement of a sterile compressive dressing. The patient was then placed in a sling. She was awakened and then taken to recovery in stable condition. I attest to the content of the Intraoperative Record and any orders documented therein. Any exceptions are noted below. SHANNON
[2016-11-27] MEDS ORDERED: ONDA8TAB6 PO (10:00)
[2016-11-27] MEDS ORDERED: PHEN1CAP PO (10:00)
[2016-12-09] MEDS ORDERED: ALBU18002 INH (05:39)
[2016-12-09] MEDS ORDERED: POLY335019 PO (05:43)
[2016-12-09] MEDS ORDERED: HYDR2.5C37 TOP (05:45)
[2016-12-13] MEDS ORDERED: NTRGSL4 SL (09:28)
== END 2016-10-30 16:05 | disposition home or self-care (01) ==
LOC: C.ACU 06:38
PROVIDERS: ATTEND Orthopaedic Surgery Sports Medicine
DX: M75.112 Incomplete rotator cuff tear or rupture of left shoulder, not specified as traumatic (principal); S43.402A Unspecified sprain of left shoulder joint, initial encounter; M75.42 Impingement syndrome of left shoulder; M19.012 Primary osteoarthritis, left shoulder; M65.812 Other synovitis and tenosynovitis, left shoulder; X58.XXXA Exposure to other specified factors, initial encounter; J44.9 Chronic obstructive pulmonary disease, unspecified; G47.33 Obstructive sleep apnea (adult) (pediatric); I25.2 Old myocardial infarction; I25.10 Atherosclerotic heart disease of native coronary artery without angina pectoris; I10 Essential (primary) hypertension; Z86.718 Personal history of other venous thrombosis and embolism; Z86.73 Personal history of transient ischemic attack (TIA), and cerebral infarction without residual deficits; E11.9 Type 2 diabetes mellitus without complications; E78.00 Pure hypercholesterolemia, unspecified; J45.909 Unspecified asthma, uncomplicated; G35 Multiple sclerosis; Z85.3 Personal history of malignant neoplasm of breast; Z85.028 Personal history of other malignant neoplasm of stomach; Z85.42 Personal history of malignant neoplasm of other parts of uterus; Z79.4 Long term (current) use of insulin; Z79.899 Other long term (current) drug therapy; Z88.0 Allergy status to penicillin; Z88.5 Allergy status to narcotic agent

== ENCOUNTER → 2016-12-01 | Day surgery (SDC) | payer OTHER ==
[2016-11-27 10:02] VITALS: BMI 53.0
[~2016-12-01] VITALS: Ht 165.1 cm; Wt 144.6 kg
[~2016-12-01] MED LIST changes: +ALBU18002 INH; +AMT24 PO; -BUPIVACAINE 0.5 % 5 MG/1 ML PF 10ML VIAL ONE; -CLINDAMYCIN 600 MG/54 ML D5W IV SCH; +CLR10 PO; +EPP3/2 IM; +FERR1TAB62 PO; -FERR325T PO; -LACTATED RINGER'S 1000ML 1,000 ML IV SCH; +LATA0.009 OP; +MOME200A INH; +NTRGSL4 SL; +ONDA8TAB6 PO; +PANT40TA2 PO; +PHEN15CA PO; +POLY335019 PO; +PRED20TA2 PO; +PREG75CA PO; -PRT/40 PO; +RANI150T3 PO; +SODIUM CHLORIDE 0.9% 500ML 500 ML IV ONE; +TEMA30CA4 PO
[2016-12-01 08:12] VITALS: Ht 165.1 cm; Wt 144.6 kg
--- NOTE | 2016-12-01 08:52 | Endo History and Physical ---
History & Physical Date of Service: Dec 01, 2016. Chief Complaint: HIATAL HERNIA HX OF ULCERS GASTROPARESIS Referring Physician: DR CYR History of Present Illness nausea/ regurgitation Past Medical History Diabetes, Angioplasty/Stent, Arthritis, Fractures, Pulmonary Emboli, Reflux, Cancer, Heart Disease, Syncopal Episodes, CHF, COPD, Kidney Disease, CVA/TIA, Depression Past Surgical History Hx Cardiac Surgery: Yes (HEART CATH ANGIOPLASTY, CARDIOVERSION) Hx Internal Defibrillator: No Hx Pacemaker: No Hx Abdominal Surgery: Yes (LAPAROSCOPY) Hx of Implantable Prosthesis: No Hx Post-Op Nausea and Vomiting: No Hx Cancer Surgery: Yes (PARTIAL LISA, BILATERAL BREAST LUMPECTOMY, PARTIAL GASTRECTOMY) Hx Thoracic Surgery: No Hx Orthopedic: Yes (LT SHOULDER, ORIF LT ANKLE AND HARDWARE REMOVAL,RT/LT CTR, RT KNEE SCOPE X3) Hx Urinary Tract Surgery: No Family History Colon CA Social History Smoking Status: Former Smoker Hx Substance Use: No Hx Alcohol Use: No Allergies Coded Allergies: Bee Venom (Verified Allergy, Severe, THROAT SWELLS, 12/01/16) Morphine (Verified Allergy, Severe, ANAPHYLAXIS, 12/01/16) Morphine and Related (Verified Allergy, Severe, ANAPHYLAXIS, 12/01/16) Wasp Venom Protein (Verified Allergy, Severe, THROAT SWELLS, 12/01/16) Adhesives (Verified Allergy, Intermediate, RASH, 12/01/16) Celecoxib (Verified Allergy, Intermediate, HIVES, 12/01/16) Codeine (Verified Allergy, Intermediate, HIVES, 12/01/16) Hydrocodone (Verified Allergy, Intermediate, HIVES, 12/01/16) Oxycodone (Verified Allergy, Intermediate, HIVES, 12/01/16) Penicillins (Verified Allergy, Intermediate, HIVES, 12/01/16) Salicylates (Verified Allergy, Intermediate, GI SYMPTOMS, 12/01/16) Tramadol (Verified Allergy, Intermediate, HIVES, 12/01/16) Nortriptyline (Verified Allergy, Unknown, UNKNOWN, 12/01/16) Metoclopramide (Verified Adverse Reaction, Intermediate, HYPERACTIVITY, ) NSAIDs (Verified Adverse Reaction, Intermediate, HIVES, DYSPEPSIA, 12/01/16 ) Celebrex (hives), Valdecoxib (hives), Vioxx (hives), salicylates (dyspepsia) per PCP records Diphenhydramine (Verified Adverse Reaction, Mild, Difficulty urinating, ) Current Medications Reported Home Medications Medications Dose Route/Sig Max Daily Dose Days Date Category Dose Instructions Zofran (Ondansetron HCl) 8 Mg Tab 8 Mg PO QID 11/27/16 Reported Phentermine Hcl 15 Mg Cap 1 Cap PO QAM 11/27/16 Reported Oxygen Gas 2 Liters NA PRN PRN 10/16/16 Reported Bacid (Probiotic Product) 1 Tab Tab 1 Tab PO BID 10/16/16 Reported Indocin Ext Rel (Indomethacin) 75 Mg Capcr 75 Mg PO QAM 10/16/16 Reported Tessalon Perles (Benzonatate) 100 Mg Cap 1 Cap PO TID PRN 10/16/16 Reported Monodox (Doxycycline Monohydrate) 100 Mg Cap 100 Mg PO BID 10/16/16 Reported Vesicare (Solifenacin) 10 Mg Tab 10 Mg PO QAM 10/16/16 Reported Gabapentin 600 Mg Tab 600 Mg PO TID 08/23/16 Reported Epinephrine 0.3 Mg/0.3 Ml Inj 0.3 Mg IM UD PRN 08/23/16 Reported Lantus Solostar (Insulin Glargine) 100 Unit/Ml Inj 23 Units SC HS PRN 08/23/16 Reported ADMINISTER MD DIRECTS Duragesic (Fentanyl) 50 Mcg Tdsy 50 Mcg TOP [id number] 08/23/16 Reported Zantac (Ranitidine Hcl) 300 Mg Tab 300 Mg PO BID 08/23/16 Reported Montelukast Sodium (Montelukast Sod) 10 Mg Tab 10 Mg PO HS 08/23/16 Reported Fluticasone Propionate 120 Sprays/6000 Mcg Inha 2 Sprays OBDULIA DAILY 08/23/16 Reported Fenofibrate 145 Mg Tab 145 Mg PO HS 08/23/16 Reported Imdur Ext Rel (Isosorbide Mononitrate) 30 Mg Tabcr 30 Mg PO QAM 08/23/16 Reported Atorvastatin Calcium (Atorvastatin) 40 Mg Tab 40 Mg PO HS 08/23/16 Reported Carvedilol 3.125 Mg Tab 3.125 Mg PO BID 08/23/16 Reported Ferrous Sulfate 325 Mg Tab 325 Mg PO BID 08/23/16 Reported Pantoprazole Sodium (Pantoprazole) 40 Mg Tab 40 Mg PO QAM 08/23/16 Reported TAKE THIS MEDICATION ONCE DAILY 30 MINUTES BEFORE BREAKFAST Claritin (Loratadine) 10 Mg Tab 10 Mg PO QAM 08/23/16 Reported Duloxetine HCl 30 Mg Cap 30 Mg PO HS 08/23/16 Reported Cozaar (Losartan Potassium) 100 Mg Tab 100 Mg PO QAM 08/23/16 Reported Restoril (Temazepam) 30 Mg Cap 30 Mg PO HS 08/23/16 Reported Zolpidem Tartrate 5 Mg Tab 5 Mg PO HS PRN 06/10/16 Reported TAKE THIS MEDICATION 30-60 MINUTES PRIOR TO SLEEP Triamcinolone Acetonide (Triamcinolone Acet) 45 Appln/15 Gm Oint 1 Appln TOP BID 05/03/16 Reported Pulmicort (Budesonide (Inhalation)) 0.5 Mg/2 Ml Joanna 0.5 Mg INH DAILY 05/03/16 Reported Zyrtec (Cetirizine HCl) 10 Mg Tab 10 Mg PO QAM 05/03/16 Reported Dilaudid (Hydromorphone Hcl) 4 Mg Tab 2 Mg PO Q6H PRN 05/03/16 Reported Xalatan 0.005% Oph (Latanoprost) Soln 1 Drop OPB HS 03/10/16 Reported Duoneb (Ipratropium-Albuterol) 3 Ml Nebu 1 Treatment NEB Q4H PRN 03/10/16 Reported Dulera 100/5 Mcg (Mometasone Furoate-Formoterol) 1 Aer Aer 1 Puff INH BID 11/14/15 Reported Biofreeze Roll-On (Menthol (Topical Analgesic)) 4 % Gel 1 Appln TOP QID 11/14/15 Reported Senna-S (Sennosides-Docusate Sodium) 1 Tab Tab 3 Tabs PO TID 11/14/15 Reported Phenergan (Promethazine HCl) 25 Mg Tab 25 Mg PO Q6H PRN 10/27/15 Reported Sm Slow Release Iron (Ferrous Sulfate Dried) 143 Mg Tab 286 Mg PO QAM 10/27/15 Reported Dicyclomine Hcl 10 Mg Cap 10 Mg PO TID 10/27/15 Reported Januvia (Sitagliptin Phosphate) 100 Mg Tab 100 Mg PO QAM 10/04/15 Reported Vitamin D (Cholecalciferol) 2,000 Unit Tab 4,000 Inter.unit PO HS 08/29/15 Reported Mag-Ox (Magnesium Oxide) 400 Mg Tab 400 Mg PO QAM 05/19/12 Reported Miralax Powder Packet (Polyethylene) 17 Gm Pack 17 Gm PO QAM 05/19/12 Reported Proair Hfa (Albuterol) Aers 2 Puffs INH QID PRN 03/19/09 Reported Vital Signs Weight (Kilograms): 144.55 Height (Feet): 5 Height (Inches): 5 Date Time Temp Pulse Resp B/P Pulse Ox O2 Delivery O2 Flow Rate FiO2 12/01/16 08:19 36.9 92 20 98/66 97 Room Air Physical Exam General Appearance: no apparent distress Respiratory/Chest: Auscultation: breath sounds normal Cardiovascular: Heart Auscultation: RRR Abdomen: Inspection & Palpation: soft Liver: non-tender Assessment and Plan stable for EGD
--- NOTE | 2016-12-01 09:07 | Discharge Instructions ---
Endoscopy Patient Instructions Date / Procedure(s) Performed Dec 01, 2016. EGD Allergy Information Coded Allergies: Bee Venom (Verified Allergy, Severe, THROAT SWELLS, 12/01/16) Morphine (Verified Allergy, Severe, ANAPHYLAXIS, 12/01/16) Morphine and Related (Verified Allergy, Severe, ANAPHYLAXIS, 12/01/16) Wasp Venom Protein (Verified Allergy, Severe, THROAT SWELLS, 12/01/16) Adhesives (Verified Allergy, Intermediate, RASH, 12/01/16) Celecoxib (Verified Allergy, Intermediate, HIVES, 12/01/16) Codeine (Verified Allergy, Intermediate, HIVES, 12/01/16) Hydrocodone (Verified Allergy, Intermediate, HIVES, 12/01/16) Oxycodone (Verified Allergy, Intermediate, HIVES, 12/01/16) Penicillins (Verified Allergy, Intermediate, HIVES, 12/01/16) Salicylates (Verified Allergy, Intermediate, GI SYMPTOMS, 12/01/16) Tramadol (Verified Allergy, Intermediate, HIVES, 12/01/16) Nortriptyline (Verified Allergy, Unknown, UNKNOWN, 12/01/16) Metoclopramide (Verified Adverse Reaction, Intermediate, HYPERACTIVITY, ) NSAIDs (Verified Adverse Reaction, Intermediate, HIVES, DYSPEPSIA, 12/01/16 ) Celebrex (hives), Valdecoxib (hives), Vioxx (hives), salicylates (dyspepsia) per PCP records Diphenhydramine (Verified Adverse Reaction, Mild, Difficulty urinating, ) Discharge Date / Findings Dec 01, 2016. normal EGD Medication Instructions Stopped Medication(s): NONE Provider Instructions Activity Restrictions - No exercising or heavy lifting for 24 hours. - Do not drink alcohol the day of the procedure. - Do not drive a car or operate machinery until the day after the procedure. - Do not make any important decisions or sign important papers in 24 hours after the procedure. Following Day: - Return to full activity which may include returning to work/school. Diet Start your diet with liquids and light foods (jello, soup, juice, toast). Then eat your usual diet if not nauseated. Treatment For Common After Affects For mild abdominal pain, bloating, or excessive gas: - Rest - Eat lightly - Lie on right side Follow-Up Information Follow-up with DR CYR as scheduled Anesthesia Information What You Should Know You have had a procedure that required some medicine to reduce anxiety and discomfort. This treatment is called moderate sedation. After receiving the treatment, you may be sleepy, but you will be able to breathe on your own. The effects of the treatment may last for several hours. Follow these instructions along with Activity/Diet recommendations noted above: * Do NOT do anything where dizziness or clumsiness would be dangerous. * Rest quietly at home today, then you can be up and about tomorrow. * Have a responsible person stay with you the rest of today. * You may have had an I.V. today. If so, you may take the dressing off later today. Recommendations Call your doctor if: * Trouble breathing * Continuous vomiting for more than 24 hours * Temperature above 101 degrees * Severe abdominal pain or bloating * Pain not relieved by pain medicine ordered * There is increased drainage or redness from any incision * A large amount of rectal bleeding greater than 2-3 tablespoons. (If you had a polyp/s removed or have hemorrhoids, a small amount of blood - from the rectum is to be expected.) * You have any unanswered questions or concerns. IN THE EVENT OF A SERIOUS EMERGENCY, GO TO THE NEAREST EMERGENCY ROOM Your discharge instructions were prepared by provider Derick Richter. Patient Instructions Signature Page Rossana Guevara Patient (or Guardian) Signature/Date: I have read and understand the instructions given to me by my caregivers. Caregiver/RN/Doctor Signature/Date: The above-named patient and/or guardian has received patient instructions on this date. + Original Patient Signature Page (only) stays with chart. Please make copy for patient.
--- NOTE | 2016-12-01 09:11 | GI REPORT ---
Procedure Date: 12/01/2016 8:40 AM Procedure: Upper GI endoscopy Indications: Heartburn, Nausea, Regurgitation Medicines: See the Anesthesia note for documentation of the administered medications Complications: No immediate complications. Estimated Blood Loss: Estimated blood loss: none. Procedure: Pre-Anesthesia Assessment: - Prior to the procedure, a History and Physical was performed, and patient medications, allergies and sensitivities were reviewed. The patient's tolerance of previous anesthesia was reviewed. - The risks and benefits of the procedure and the sedation options and risks were discussed with the patient. All questions were answered and informed consent was obtained. - Patient identification and proposed procedure were verified prior to the procedure by the physician and the nurse. The procedure was verified in the pre-procedure area. - Pre-procedure physical examination revealed no contraindications to sedation. - After reviewing the risks and benefits, the patient was deemed in satisfactory condition to undergo the procedure. After obtaining informed consent, the endoscope was passed under direct vision. Throughout the procedure, the patient's blood pressure, pulse, and oxygen saturations were monitored continuously. The scope was introduced through the mouth, and advanced to the third part of duodenum. The upper GI endoscopy was accomplished without difficulty. The patient tolerated the procedure well. Findings: The esophagus was normal. A small amount of food (residue) was found in the gastric body. The examined duodenum was normal. The cardia and gastric fundus were normal on retroflexion. Impression: - Normal esophagus. - A small amount of food (residue) in the stomach. - The stomach was otherwise normal. - Normal examined duodenum. - No specimens collected. Recommendation: - Discharge patient to home. Derick Richter M.D. Derick Richter MD 12/01/2016 9:10:19 AM This report has been signed electronically. Note Initiated On: 12/01/2016 8:40 AM I attest to the content of the Intraoperative Record and orders documented therein, exceptions below
[2016-12-01 09:41] VITALS: BP 91/57; PULSE 92; O2SAT 95
--- NOTE | 2016-12-01 09:58 | Anesthesiology Progress Note ---
Anesthesia Post Op Note Date & Time Dec 01, 2016 at 09:57 Vital Signs Pain Intensity: 0 Vital Signs Past 12 Hours Date Time Temp Pulse Resp B/P Pulse Ox O2 Delivery O2 Flow Rate FiO2 12/01/16 09:41 92 20 91/57 95 Room Air 12/01/16 09:25 65 20 84/61 98 Mask 10 12/01/16 09:10 65 20 80/62 98 Mask 10 12/01/16 08:19 36.9 92 20 98/66 97 Room Air Notes Mental Status: alert / awake / arousable, participated in evaluation Pt Amnestic to Procedure: Yes Nausea / Vomiting: adequately controlled Pain: adequately controlled Airway Patency, RR, SpO2: stable & adequate BP & HR: stable & adequate Hydration State: stable & adequate Anesthetic Complications: no major complications apparent Pt doing well.
== END | disposition home or self-care (01) ==
LOC: C.GI 07:24
PROVIDERS: ATTEND Internal Medicine Gastroenterology
DX: R12 Heartburn (principal); R11.2 Nausea with vomiting, unspecified; G35 Multiple sclerosis; E66.01 Morbid (severe) obesity due to excess calories; E11.22 Type 2 diabetes mellitus with diabetic chronic kidney disease; F32.9 Major depressive disorder, single episode, unspecified; J44.9 Chronic obstructive pulmonary disease, unspecified; N18.3 Chronic kidney disease, stage 3 (moderate); I25.2 Old myocardial infarction; Z68.43 Body mass index [BMI] 50.0-59.9, adult; G47.33 Obstructive sleep apnea (adult) (pediatric); Z86.73 Personal history of transient ischemic attack (TIA), and cerebral infarction without residual deficits; Z85.3 Personal history of malignant neoplasm of breast; Z86.711 Personal history of pulmonary embolism; Z90.3 Acquired absence of stomach [part of]; Z87.891 Personal history of nicotine dependence; Z88.5 Allergy status to narcotic agent; Z88.0 Allergy status to penicillin; Z98.890 Other specified postprocedural states; Z79.4 Long term (current) use of insulin; Z79.899 Other long term (current) drug therapy; Z80.0 Family history of malignant neoplasm of digestive organs

== ENCOUNTER 2016-12-13 05:57 | Observation (INO) | payer OTHER ==
[2016-12-13] VITALS (8 sets, daily range): BP systolic 115–124; BP diastolic 65–87; PULSE 72–80; TEMP 36.5–36.7; O2SAT 92–99; Ht 165.1 cm; Wt 148.3 kg
[~2016-12-13] VITALS: Ht 165.1 cm; Wt 148.3 kg
[~2016-12-13 05:57] MED LIST changes: -ALBU1AER9 INH; -AMT24 PO; -BENZ100C84 PO; -CLR10 PO; -EPP3/2 IM; -LATA0.009 OP; -LATA0.009 OPB; -MOME200A INH; -NTRGSL4 SL; -POLY335040 PO; -PRED20TA2 PO; -PREG75CA PO; -RANI150T3 PO; -SODIUM CHLORIDE 0.9% 500ML 500 ML IV ONE; -TEMA30CA4 PO
[2016-12-13] MEDS ORDERED: NITROGLYCERIN 0.4 MG SL PER TAB CHARGE SL STA (06:40)
--- NOTE | 2016-12-13 06:47 | EMERGENCY ROOM VISIT NOTE ---
History Report prepared by Josue: Michele Palacios Under the Supervision of: Dr. Tanner Doran M.D. First contact with patient: 06:24 Chief Complaint: CHEST PAIN Stated Complaint: CHEST PAIN,SHOULDER PAIN,POLO, HARD TO BREATH Nursing Triage Summary: Pt complains of chest pain since Wednesday. Pt was here last Wednesday with same but did not want to be admitted. History of Present Illness The patient is a 46 year old female who presents to the Emergency Room with complaints of chest pain that occurred yesterday. She rates her pain a 10/10 in severity. She was here in the ED two days ago and was prompted to be admitted. However, she did not want to stay in the hospital, so she went home. She was supposed to see her PCP tomorrow, but could not wait that long. Her symptoms now are the same as they were then, but worse. She is experiencing a headache, dizziness, lightheadedness, shortness of breath, left shoulder pain, left arm pain, left leg numbness, lower back pain, and diaphoresis. She is unaware if her symptoms are related to GERD or something more pertinent. She denies any abdominal pain. She states that she has a past medical history of a heart attack , but she did not receive a cardiac catheter. Source of History: patient Onset: yesterday Position: chest (left) Symptom Intensity: 10/10 Quality: sharp Timing: worsening Associated Symptoms: + SOB, + back pain, + diaphoresis, + headache, + numbness, No abdominal pain Note: She is experiencing lightheadedness, dizziness, left shoulder pain, and left arm pain. Review of Systems See HPI for pertinent positives & negatives. A total of 10 systems reviewed and were otherwise negative. Past Medical & Surgical Medical Problems: (1) Ambulatory dysfunction (2) Asthma, moderate persistent (3) Atypical chest pain (4) Chronic constipation (5) Chronic low back pain (6) CKD (chronic kidney disease) stage 3, GFR 30-59 ml/min (7) COPD (chronic obstructive pulmonary disease) (8) Depression (9) Diabetes mellitus type 2 in obese (10) Diabetic gastroparesis (11) Dyslipidemia (12) GERD (gastroesophageal reflux disease) (13) History of DVT (deep vein thrombosis) (14) History of migraine (15) HTN (hypertension) (16) Insomnia (17) Left facial numbness (18) Multiple sclerosis (19) Obesity (20) Osteoarthritis (21) PUD (peptic ulcer disease) (22) Vertigo Surgical Problems: (1) H/O bilateral breast reduction surgery (2) H/O colonoscopy (3) H/O esophagogastroduodenoscopy (4) H/O exploratory laparotomy (5) History of arthroscopy of knee (6) History of carpal tunnel surgery (7) History of tubal ligation Family History Cancer SISTER Cardiac disorder FATHER MOTHER GRANDFATHER GRANDMOTHER Diabetes mellitus GRANDFATHER GRANDMOTHER FH: cancer FH: heart disease FHx: gallbladder disease FHx: lung disease Hypertension FATHER MOTHER Seizures FATHER Stroke FATHER Social History Smoking Status: Never Smoker Alcohol Use: none Drug Use: none Marital Status: Housing Status: lives with family Occupation Status: unemployed Current/Historical Medications Scheduled Atorvastatin (Atorvastatin Calcium), 40 MG PO HS Budesonide (Inhalation) (Pulmicort), 0.5 MG INH DAILY Carvedilol (Carvedilol), 3.125 MG PO BID Cetirizine (Zyrtec), 10 MG PO QAM Cholecalciferol (Vitamin D), 4,000 INTER.UNIT PO HS Dicyclomine Hcl (Dicyclomine Hcl), 10 MG PO TID Doxycycline Monohydrate (Monodox), 100 MG PO BID Duloxetine HCl (Duloxetine HCl), 30 MG PO HS Fenofibrate (Fenofibrate), 145 MG PO HS Fentanyl (Duragesic), 50 MCG TOP [id number] Ferrous Sulfate (Ferrous Sulfate), 325 MG PO BID Ferrous Sulfate Dried (Sm Slow Release Iron), 286 MG PO QAM Fluticasone Propionate (Fluticasone Propionate), 2 SPRAYS OBDULIA DAILY Gabapentin (Gabapentin), 600 MG PO TID Hydrocortisone 2.5% (Rectal) (Anusol-Hc 2.5%), 1 APPLN TOP BID Indomethacin Ext Rel (Indocin Ext Rel), 75 MG PO QAM Isosorbide Mononitrate Ext Rel (Imdur Ext Rel), 30 MG PO QAM Loratadine (Claritin), 10 MG PO QAM Losartan Potassium (Cozaar), 100 MG PO QAM Magnesium Oxide (Mag-Ox), 400 MG PO QAM Menthol (Topical Analgesic) (Biofreeze Roll-On), 1 APPLN TOP QID Mometasone Furoate-Formoterol (Dulera 100/5 Mcg), 1 PUFF INH BID Montelukast Sod (Montelukast Sodium), 10 MG PO HS Ondansetron Hcl (Zofran), 8 MG PO QID Pantoprazole (Pantoprazole Sodium), 40 MG PO QAM Phentermine Hcl (Phentermine Hcl), 1 CAP PO QAM Polyethylene Glycol 3350 (Miralax), 17 GM PO DAILY Probiotic Product (Bacid), 1 TAB PO BID Ranitidine Hcl (Zantac), 300 MG PO BID Sennosides-Docusate Sodium (Senna-S), 3 TABS PO TID Sitagliptin Phosphate (Januvia), 100 MG PO QAM Solifenacin (Vesicare), 10 MG PO QAM Temazepam (Restoril), 30 MG PO HS Triamcinolone Acet (Triamcinolone Acetonide), 1 APPLN TOP BID Scheduled PRN Albuterol Sulfate (Proair Respiclick), 2 PUFFS INH QID PRN for SOB/Wheezing Epinephrine (Epinephrine), 0.3 MG IM UD PRN for ALLERGIC REACTION Hydromorphone Hcl (Dilaudid), 2 MG PO Q6H PRN for Pain Insulin Glargine (Lantus Solostar), 25 UNITS SC HS PRN for Elevated Blood Sugar Ipratropium-Albuterol (Duoneb), 1 TREATMENT NEB Q4H PRN for SOB/Wheezing Oxygen (Oxygen), 2 LITERS NA PRN PRN for Shortness of Breath Promethazine Hcl (Phenergan), 25 MG PO Q6H PRN for Nausea Zolpidem Tartrate (Zolpidem Tartrate), 5 MG PO HS PRN for Sleep Allergies Coded Allergies: Bee Venom (Verified Allergy, Severe, THROAT SWELLS, 12/13/16) Morphine (Verified Allergy, Severe, ANAPHYLAXIS, 12/13/16) Morphine and Related (Verified Allergy, Severe, ANAPHYLAXIS, 12/13/16) Wasp Venom Protein (Verified Allergy, Severe, THROAT SWELLS, 12/13/16) Adhesives (Verified Allergy, Intermediate, RASH, 12/13/16) Celecoxib (Verified Allergy, Intermediate, HIVES, 12/13/16) Codeine (Verified Allergy, Intermediate, HIVES, 12/13/16) Hydrocodone (Verified Allergy, Intermediate, HIVES, 12/13/16) Oxycodone (Verified Allergy, Intermediate, HIVES, 12/13/16) Penicillins (Verified Allergy, Intermediate, HIVES, 12/13/16) Salicylates (Verified Allergy, Intermediate, GI SYMPTOMS, 12/13/16) Tramadol (Verified Allergy, Intermediate, HIVES, 12/13/16) Nortriptyline (Verified Allergy, Unknown, UNKNOWN, 12/13/16) Metoclopramide (Verified Adverse Reaction, Intermediate, HYPERACTIVITY, 12/13/16) NSAIDs (Verified Adverse Reaction, Intermediate, HIVES, DYSPEPSIA, 12/13/16) Celebrex (hives), Valdecoxib (hives), Vioxx (hives), salicylates (dyspepsia) per PCP records Diphenhydramine (Verified Adverse Reaction, Mild, Difficulty urinating, 12/13/16) Physical Exam Vital Signs Date Time Temp Pulse Resp B/P Pulse Ox O2 Delivery O2 Flow Rate FiO2 12/13/16 08:54 78 12/13/16 07:59 77 22 142/74 96 Room Air 12/13/16 07:05 85 20 122/64 97 Room Air 12/13/16 07:00 77 18 129/88 97 Room Air 12/13/16 06:44 97 Room Air 12/13/16 06:22 98 Room Air 12/13/16 06:13 79 12/13/16 06:02 36.6 82 20 127/75 100 Room Air Physical Exam GENERAL: Patient is a healthy-appearing well-nourished HEAD: Normocephalic atraumatic EYES: Ocular movements intact pupils equal and react to light OROPHARYNX mucous membranes are moist no exudates present no erythema or edema present NECK: Supple no nuchal rigidity CHEST: Good equal expansion LUNGS: Clear and equal to auscultation CARDIAC: Normal S1 and S2 ABDOMEN: Soft nontender no guarding BACK: No CVA tenderness EXTREMITIES: No pain upon palpation normal muscle strength in all groups no clubbing cyanosis or edema NEURO: Patient is following commands is answering questions appropriately. Alert and oriented x3 Cranial Nerves 2-12 grossly intact Medical Decision & Procedures ER Provider Diagnostic Interpretation: Radiology results as stated below per my review and radiologist interpretation: CHEST ONE VIEW PORTABLE CLINICAL HISTORY: Atypical chest pain COMPARISON STUDY: 12/09/2016 FINDINGS: The cardiac and mediastinal contours remain stable. There is mild elevation of the interstitium. An element of mild pulmonary vascular congestion/fluid overload is suspected. There is no lobar consolidation. There are no pleural effusions.[ There is absence of the distal left clavicle, consistent with either erosive change or postsurgical change. This remain stable. IMPRESSION: 1. Suspected mild pulmonary vascular congestion/fluid overload. No evidence of focal pulmonary consolidation. Electronically signed by: Kumar Perez M.D. 12/13/2016 7:17 AM Dictated Date/Time: 12/13/2016 7:15 AM ULTRASOUND LEFT VENOUS DOPP LOWER EXT UNILAT CLINICAL HISTORY: Left leg swelling COMPARISON STUDY: No previous studies for comparison. FINDINGS: Real-time and color flow Doppler imaging were performed. Flow was seen within the femoral, popliteal and calf veins with no intraluminal thrombus demonstrated. The saphenous vein is patent. IMPRESSION: No evidence of left lower extremity DVT. Electronically signed by: Kumar Perez M.D. 12/13/2016 7:55 AM Dictated Date/Time: 12/13/2016 7:55 AM Laboratory Results 12/13/16 06:15 Red Blood Count 3.54, Mean Corpuscular Volume 101.1, Mean Corpuscular Hemoglobin 31.6, Mean Corpuscular Hemoglobin Concent 31.3, Mean Platelet Volume 11.1, Neutrophils (%) (Auto) 52.0, Lymphocytes (%) (Auto) 30.4, Monocytes (%) ( Auto) 7.7, Eosinophils (%) (Auto) 9.2, Basophils (%) (Auto) 0.4, Neutrophils # ( Auto) 3.58, Lymphocytes # (Auto) 2.09, Monocytes # (Auto) 0.53, Eosinophils # ( Auto) 0.63, Basophils # (Auto) 0.03 12/13/16 06:15 Test 12/13/16 06:15 White Blood Count 6.88 K/uL (4.8-10.8) Red Blood Count 3.54 M/uL (4.2-5.4) Hemoglobin 11.2 g/dL (12.0-16.0) Hematocrit 35.8 % (37-47) Mean Corpuscular Volume 101.1 fL (80-100) Mean Corpuscular Hemoglobin 31.6 pg (25-34) Mean Corpuscular Hemoglobin Concent 31.3 g/dl (32-36) Platelet Count 327 K/uL (130-400) Mean Platelet Volume 11.1 fL (7.4-10.4) Neutrophils (%) (Auto) 52.0 % Lymphocytes (%) (Auto) 30.4 % Monocytes (%) (Auto) 7.7 % Eosinophils (%) (Auto) 9.2 % Basophils (%) (Auto) 0.4 % Neutrophils # (Auto) 3.58 K/uL (1.4-6.5) Lymphocytes # (Auto) 2.09 K/uL (1.2-3.4) Monocytes # (Auto) 0.53 K/uL (0.11-0.59) Eosinophils # (Auto) 0.63 K/uL (0-0.5) Basophils # (Auto) 0.03 K/uL (0-0.2) RDW Standard Deviation 48.6 fL (36.4-46.3) RDW Coefficient of Variation 13.1 % (11.5-14.5) Immature Granulocyte % (Auto) 0.3 % Immature Granulocyte # (Auto) 0.02 K/uL (0.00-0.02) Anion Gap 6.0 mmol/L (3-11) Est Creatinine Clear Calc Drug Dose 93.6 ml/min Estimated GFR () 69.2 Estimated GFR (Non- 59.7 BUN/Creatinine Ratio 11.5 (10-20) Calcium Level 8.3 mg/dl (8.5-10.1) Total Bilirubin 0.2 mg/dl (0.2-1) Direct Bilirubin < 0.1 mg/dl (0-0.2) Aspartate Amino Transf (AST/SGOT) 15 U/L (15-37) Alanine Aminotransferase (ALT/SGPT) 20 U/L (12-78) Alkaline Phosphatase 69 U/L (45-117) Total Creatine Kinase 80 U/L (26-192) Creatine Kinase MB 0.9 ng/ml (0.5-3.6) Creatine Kinase MB Ratio 1.1 (0-3.0) Troponin I < 0.015 ng/ml (0-0.045) Pro-B-Type Natriuretic Peptide 40 pg/ml (0-450) Total Protein 6.9 gm/dl (6.4-8.2) Albumin 3.3 gm/dl (3.4-5.0) Lipase 130 U/L (73-393) Labs reviewed by ED physician. Medications Administered Medications (Trade) Dose Ordered Sig/Stepan Route Start Time Stop Time Status Last Admin Dose Admin Nitroglycerin (Nitrostat Tab) 0.4 mg Q5M STAT SL 12/13/16 06:40 12/13/16 06:42 DC 12/13/16 07:00 0.4 MG Nitroglycerin (Nitroglycerin 2% Oint) 1 inch NOW STAT EXT 12/13/16 07:11 12/13/16 07:12 DC 12/13/16 07:25 1 INCH Acetaminophen (Tylenol Tab) 1,000 mg NOW STAT PO 12/13/16 07:11 12/13/16 07:12 DC 12/13/16 07:25 1,000 MG ECG Indication: chest pain Rate (beats per minute): 78 Rhythm: normal sinus Findings: no acute ischemic change, no ectopy ED Course 0624: Past medical records reviewed. The patient was evaluated in room B4B. A complete history and physical examination was performed. 0640: Ordered Nitroglycerin 0.4 mg SL 0711: Ordered Tylenol Tab 1000 mg PO, Nitroglycerin 1 inch 0722: Nitroglycerin 1 inch .ROUTE 0822: Upon reexamination the patient is resting. I discussed results and treatment plan with the patient. She verbalizes agreement and understanding. I spoke with Dr. Guevara from the [facility]. The patient will be evaluated for further management. Medical Decision Differential diagnosis: Etiologies such as cardiac ischemia, aortic dissection, pulmonary embolism, pneumonia, pneumothorax, musculoskeletal, infections, pericarditis, myocarditis , esophageal rupture, gastrointestinal, as well as others were entertained. This is a 46-year-old female who presents emergency department complaining of headache, chest pain, abdominal pain, left lower extremity pain. The patient supposedly has a history of a heart attack in the past however has not had a cardiac catheterization performed. I will note that she was recently here in emergency department with chest pain that was relieved by nitroglycerin. At that time it was recommended that she be admitted to the hospital however the patient refused. Here in the emergency department the patient was again given nitroglycerin for her chest pain. This resulted in improvement in her symptoms. She was therefore placed on Nitropaste. Due to the patient's high comorbidities I did discuss the case with the hospitalist service who agreed to admit the patient. Patient was in agreement with the treatment plan. Patient' s ultrasound of her left lower 70 does not show any evidence of a DVT. I will also note that the patient had a CAT scan of the chest in the emergency department 4 days ago which did not show any evidence of PE. Consults Time Called: 817 Consulting Physician: Dr. Ismael Pulido Hospitalist Returned Call: [phone] They will be evaluating the patient for further management. Impression Primary Impression: Precordial chest pain Scribe Attestation The scribe's documentation has been prepared under my direction and personally reviewed by me in its entirety. I confirm that the note above accurately reflects all work, treatment, procedures, and medical decision making performed by me. Departure Information Dispostion Being Evaluated By Hospitalist Referrals Leonid Morgan M.D. (PCP) Patient Instructions My [facility]
[2016-12-13 06:51] LABS: BASO % 0.4 %; BASO ABS # 0.03 K/uL (0-0.2); COMPLETE YES; EOS % 9.2 %; HEMATOCRIT 35.8 % (37-47); IG% 0.3 %; LYMPH % 30.4 %; LYMPH ABS # 2.09 K/uL (1.2-3.4); MEAN CELL VOLUME 101.1 fL (80-100); MEAN CORPUSCULAR HEMOGLOBIN 31.6 pg (25-34); MEAN CORPUSCULAR HGB CONC 31.3 g/dl (32-36); MEAN PLATELET VOLUME 11.1 fL (7.4-10.4); MONO % 7.7 %; PLATELET COUNT 327 K/uL (130-400); RED BLOOD COUNT 3.54 M/uL (4.2-5.4); WHITE BLOOD COUNT 6.88 K/uL (4.8-10.8)
[2016-12-13 06:59] LABS: ALT/SGPT 20 U/L (12-78); AST/SGOT 15 U/L (15-37); BLOOD UREA NITROGEN 13 mg/dl (7-18); BUN/CREATININE RATIO 11.5 (10-20); CALCIUM 8.3 mg/dl (8.5-10.1); CARBON DIOXIDE 31 mmol/L (21-32); CHLORIDE 102 mmol/L (98-107); GLUCOSE 127 mg/dl (70-99); POTASSIUM 3.5 mmol/L (3.5-5.1); SODIUM 139 mmol/L (136-145)
[2016-12-13 07:04] LABS: ALKALINE PHOSPHATASE 69 U/L (45-117); CKMB/CK RATIO 1.1 (0-3.0)
[2016-12-13] MEDS ORDERED: ACETAMINOPHEN 500 MG TAB PO STA (07:11)
[2016-12-13] MEDS ORDERED: NITROGLYCERIN OINT 2% 1GM PACKET EXT STA (07:11)
--- NOTE | 2016-12-13 07:19 | DIAGNOSTIC IMAGING REPORT ---
CHEST ONE VIEW PORTABLE CLINICAL HISTORY: Atypical chest pain COMPARISON STUDY: 12/09/2016 FINDINGS: The cardiac and mediastinal contours remain stable. There is mild elevation of the interstitium. An element of mild pulmonary vascular congestion/fluid overload is suspected. There is no lobar consolidation. There are no pleural effusions.[ There is absence of the distal left clavicle, consistent with either erosive change or postsurgical change. This remain stable. IMPRESSION: 1. Suspected mild pulmonary vascular congestion/fluid overload. No evidence of focal pulmonary consolidation. Electronically signed by: Kumar Perez M.D. 12/13/2016 7:17 AM Dictated Date/Time: 12/13/2016 7:15 AM
[2016-12-13] MEDS ORDERED: NITROGLYCERIN OINT 2% 1GM PACKET ONE (07:22)
--- NOTE | 2016-12-13 07:56 | DIAGNOSTIC IMAGING REPORT ---
ULTRASOUND LEFT VENOUS DOPP LOWER EXT UNILAT CLINICAL HISTORY: Left leg swelling COMPARISON STUDY: No previous studies for comparison. FINDINGS: Real-time and color flow Doppler imaging were performed. Flow was seen within the femoral, popliteal and calf veins with no intraluminal thrombus demonstrated. The saphenous vein is patent. IMPRESSION: No evidence of left lower extremity DVT. Electronically signed by: Kumar Perez M.D. 12/13/2016 7:55 AM Dictated Date/Time: 12/13/2016 7:55 AM
[2016-12-13] MEDS ORDERED: NITROGLYCERIN 0.4 MG SL PER TAB CHARGE SL PRN (08:45)
[2016-12-13] MEDS ORDERED: ONDANSETRON INJ 2 MG/ML 2 ML VIAL IV PRN (08:45)
[2016-12-13] MEDS ORDERED: POLYETHYLENE (MIRALAX) 17 GM PACK PO PRN (08:45)
[2016-12-13] MEDS ORDERED: ACETAMINOPHEN 325 MG TAB PO PRN (08:45)
[2016-12-13] MEDS ORDERED: ASPIRIN 81 MG CHEW PO ONE (09:00)
[2016-12-13] MEDS ORDERED: IV FLUIDS COMPLETED PRN (09:15)
[2016-12-13] MEDS ORDERED: NTRGSL4 SL ×2 (09:28)
[2016-12-13] MEDS: ASPIRIN 81 MG ECTAB PO SCH (10:25)
[2016-12-13 11:08] LABS: PROTHROMBIN TIME (PATIENT) 10.3 SECONDS (9.0-12.0)
[2016-12-13] MEDS ORDERED: OXYBUTYNIN CHLORIDE 5 MG TAB PO PRN (11:15)
[2016-12-13] MEDS ORDERED: EPINEPHRINE ADULT AUTO-INJECT 0.3 MG SYR IM PRN (11:15)
[2016-12-13] MEDS ORDERED: ALBUT/IPRATROP 3MG/0.5MG NEB 3 ML VIAL INH PRN (11:15)
[2016-12-13] MEDS ORDERED: PROMETHAZINE HCL 25 MG TAB PO PRN (11:15)
[2016-12-13] MEDS ORDERED: ZOLPIDEM TARTRATE 5 MG TAB PO PRN (11:15)
[2016-12-13] MEDS ORDERED: ONDANSETRON 8 MG TAB PO PRN (11:15)
[2016-12-13] MEDS ORDERED: ALBUTEROL HFA 8 GM INHALER INH PRN (11:15)
--- NOTE | 2016-12-13 11:36 | History and Physical ---
History & Physical Date & Time of Service: December 13, 2016 at 11:21 Chief Complaint: Atypical Chest Pain Primary Care Physician: Leonid Morgan M.D. History of Present Illness Source: patient 46 yo F with multiple medical problems who is an obese diabetic with a previous 32 year h/o smoking with a h/o heart disease with stent placement presents with worsening chest pain that radiates across her diaphragm, goes up into her L shoulder and down into her L hand that began yesterday. The pain is constant with periods of sharpness, and she cannot describe what triggers the pain to be worse. She state that she was just sitting when then pain began and she has had multiple episodes of pain for years. There are documented visits to her primary care physician and [facility] recently in october with this is a chief complaint and one visit to the Er a few days ago. She describes SOB when the pain gets worse but there is no sweating. She does report nausea and vomiting yesterday, but this is an ongoing issue related to her gastroparesis. She did have a dobutamine stress test performed on 10/27/16 which was normal and today in the ER her EKG, trop and CXR are all negative for ischemia or obvious cause of her pain. Her pain is relieved with nitro tabs which she uses at home and she is on Imdur, as well. Apparently she reports having a stent placed but the administrative asst in [place] spoke with [facility] and denied this taking place. It is uncertain whether or not she has ever actually had a heart catheterization per the records. She was in the ER earlier this week and the workup at that time was negative including EKG, troponin an CT PE. Past Medical/Surgical History Medical Problems: (1) Ambulatory dysfunction Status: Chronic (2) Asthma, moderate persistent Status: Chronic (3) Chronic constipation Status: Chronic (4) Chronic low back pain Status: Chronic (5) CKD (chronic kidney disease) stage 3, GFR 30-59 ml/min Status: Chronic (6) COPD (chronic obstructive pulmonary disease) Status: Chronic (7) Depression Status: Chronic (8) Diabetes mellitus type 2 in obese Status: Chronic (9) Diabetic gastroparesis Status: Chronic (10) Dyslipidemia Status: Chronic (11) GERD (gastroesophageal reflux disease) Status: Chronic (12) History of DVT (deep vein thrombosis) Permanent Comment: LLE Status: Chronic (13) History of migraine Status: Chronic (14) HTN (hypertension) Status: Chronic (15) Insomnia Status: Chronic (16) Multiple sclerosis Status: Chronic (17) Obesity Status: Chronic (18) Osteoarthritis Status: Chronic (19) PUD (peptic ulcer disease) Status: Resolved (20) Vertigo Status: Chronic Surgical Problems: (1) H/O bilateral breast reduction surgery Permanent Comment: 2008 Status: Resolved (2) H/O colonoscopy Permanent Comment: 01/09/2016 proctitis Status: Chronic (3) H/O esophagogastroduodenoscopy Permanent Comment: 11/14/2015 erosive gastropathy, normal bx Status: Chronic (4) H/O exploratory laparotomy Status: Resolved (5) History of carpal tunnel surgery Permanent Comment: R side Status: Resolved (6) History of tubal ligation Status: Resolved Family History Cancer SISTER Cardiac disorder FATHER MOTHER GRANDFATHER GRANDMOTHER Diabetes mellitus GRANDFATHER GRANDMOTHER FH: cancer FH: heart disease FHx: gallbladder disease FHx: lung disease Hypertension FATHER MOTHER Seizures FATHER Stroke FATHER Social History Smoking Status: Former Smoker (tobacco abuse up to 4 ppd x 32 years) Smokeless Tobacco Use: No Alcohol Use: none Drug Use: none Marital Status: Housing status: lives with family Occupational Status: unemployed Immunizations History of Influenza Vaccine: Yes Influenza Vaccine Date: Apr 22, 2016 History of Tetanus Vaccine?: Yes Tetanus Immunization Date: May 05, 2016 History of Pneumococcal: No Pneumococcal Date: May 20, 2010 History of Hepatitis B Vaccine: Yes Hepatitis Immunization Date: Sep 21, 2016 Multi-Drug Resistant Organisms History of MDRO: No Allergies Coded Allergies: Bee Venom (Verified Allergy, Severe, THROAT SWELLS, 12/13/16) Morphine (Verified Allergy, Severe, ANAPHYLAXIS, 12/13/16) Morphine and Related (Verified Allergy, Severe, ANAPHYLAXIS, 12/13/16) Wasp Venom Protein (Verified Allergy, Severe, THROAT SWELLS, 12/13/16) Adhesives (Verified Allergy, Intermediate, RASH, 12/13/16) Celecoxib (Verified Allergy, Intermediate, HIVES, 12/13/16) Codeine (Verified Allergy, Intermediate, HIVES, 12/13/16) Hydrocodone (Verified Allergy, Intermediate, HIVES, 12/13/16) Oxycodone (Verified Allergy, Intermediate, HIVES, 12/13/16) Penicillins (Verified Allergy, Intermediate, HIVES, 12/13/16) Salicylates (Verified Allergy, Intermediate, GI SYMPTOMS, 12/13/16) Tramadol (Verified Allergy, Intermediate, HIVES, 12/13/16) Nortriptyline (Verified Allergy, Unknown, UNKNOWN, 12/13/16) Metoclopramide (Verified Adverse Reaction, Intermediate, HYPERACTIVITY, 12/13/16) NSAIDs (Verified Adverse Reaction, Intermediate, HIVES, DYSPEPSIA, 12/13/16) Celebrex (hives), Valdecoxib (hives), Vioxx (hives), salicylates (dyspepsia) per PCP records Diphenhydramine (Verified Adverse Reaction, Mild, Difficulty urinating, 12/13/16) Home Medications Scheduled Atorvastatin (Atorvastatin Calcium), 40 MG PO HS Budesonide (Inhalation) (Pulmicort), 0.5 MG INH DAILY Carvedilol (Carvedilol), 3.125 MG PO BID Cetirizine (Zyrtec), 10 MG PO QAM Cholecalciferol (Vitamin D), 4,000 INTER.UNIT PO HS Dicyclomine Hcl (Dicyclomine Hcl), 10 MG PO TID Doxycycline Monohydrate (Monodox), 100 MG PO BID Duloxetine HCl (Duloxetine HCl), 30 MG PO HS Fenofibrate (Fenofibrate), 145 MG PO HS Fentanyl (Duragesic), 50 MCG TOP [id number] Ferrous Sulfate (Ferrous Sulfate), 325 MG PO BID Ferrous Sulfate Dried (Sm Slow Release Iron), 286 MG PO QAM Fluticasone Propionate (Fluticasone Propionate), 2 SPRAYS OBDULIA DAILY Gabapentin (Gabapentin), 600 MG PO TID Hydrocortisone 2.5% (Rectal) (Anusol-Hc 2.5%), 1 APPLN TOP BID Isosorbide Mononitrate Ext Rel (Imdur Ext Rel), 30 MG PO QAM Losartan Potassium (Cozaar), 100 MG PO QAM Magnesium Oxide (Mag-Ox), 400 MG PO QAM Menthol (Topical Analgesic) (Biofreeze Roll-On), 1 APPLN TOP QID Mometasone Furoate-Formoterol (Dulera 100/5 Mcg), 1 PUFF INH BID Montelukast Sod (Montelukast Sodium), 10 MG PO HS Pantoprazole (Pantoprazole Sodium), 40 MG PO QAM Phentermine Hcl (Phentermine Hcl), 1 CAP PO QAM Polyethylene Glycol 3350 (Miralax), 17 GM PO DAILY Probiotic Product (Bacid), 1 TAB PO BID Ranitidine Hcl (Zantac), 300 MG PO BID Sennosides-Docusate Sodium (Senna-S), 3 TABS PO TID Sitagliptin Phosphate (Januvia), 100 MG PO QAM Solifenacin (Vesicare), 10 MG PO QAM Scheduled PRN Albuterol Sulfate (Proair Respiclick), 2 PUFFS INH QID PRN for SOB/Wheezing Epinephrine (Epinephrine), 0.3 MG IM UD PRN for ALLERGIC REACTION Hydromorphone Hcl (Dilaudid), 2 MG PO Q6H PRN for Pain Insulin Glargine (Lantus Solostar), 23 UNITS SC HS PRN for Elevated Blood Sugar Ipratropium-Albuterol (Duoneb), 1 TREATMENT NEB Q4H PRN for SOB/Wheezing Nitroglycerin (Nitrostat), 1 TAB SL UD PRN for chest pain Ondansetron Hcl (Zofran), 8 MG PO QID PRN for nausea Oxygen (Oxygen), 2 LITERS NA PRN PRN for Shortness of Breath Promethazine Hcl (Phenergan), 25 MG PO Q6H PRN for Nausea Zolpidem Tartrate (Zolpidem Tartrate), 5 MG PO HS PRN for Sleep Review of Systems Constitutional: + chills, + fatigue, No fever Eyes: No problem reported ENT: No problem reported Respiratory: + shortness of breath, No cough, No sputum, No wheezing Cardiovascular: + chest pain Abdomen: + nausea, + vomiting, No GI bleeding, No diarrhea, No pain Musculoskeletal: + problem reported (chronic pain on narcotics) Genitourinary - Female: + urinary incontinence (chronic) Neurologic: + numbness/tingling (L hand acutely, diabetic neuropathy chronically) Psychiatric: No substance abuse Endocrine: No problem reported Hematologic / Lymphatic: No abnormal bleeding/bruising Integumentary: + new/changing skin lesions (multiple scratched, wounds on abdomen and lower legs-states she got into [place] two months ago.) Allergic / Immunologic: No food allergies Physical Exam Vital Signs Date Time Temp Pulse Resp B/P Pulse Ox O2 Delivery O2 Flow Rate FiO2 12/13/16 10:00 36.6 77 18 117/77 Room Air 95 12/13/16 09:25 76 22 108/50 97 12/13/16 08:54 78 12/13/16 07:59 77 22 142/74 96 Room Air 12/13/16 07:05 85 20 122/64 97 Room Air 12/13/16 07:00 77 18 129/88 97 Room Air 12/13/16 06:44 97 Room Air 12/13/16 06:22 98 Room Air 12/13/16 06:13 79 12/13/16 06:02 36.6 82 20 127/75 100 Room Air GEN: morbid obesity, in no acute distress, but holding her head as though she is in pain, appears fatigued but is mentating clearly HEENT: NC/AT, PERRL, normal sclerae, mucous membranes are moist CARDIO: reg rate, S1/2 heard without m/g/r LUNGS: CTA bilaterally, no crackles, rales or wheezes, good diaphragmatic excursion. ABD: soft, non-tender, non-distended, no rebound or guarding, +BS EXTREMITY: RP and DP palpable 2+ bilat, no LE swelling or edema, extremities are warm and well-perfused NEURO: CN 2-12 grossly intact, no gross focal deficits MUSC: limited exam as patient is obese and fatigued, no gross focal deficits, moves all extremities equally SKIN: warm and dry, has well-scratched scabs all over abdomen area and on lower legs Diagnostics Laboratory Results Results Past 24 Hours Test 12/13/16 06:15 Range/Units White Blood Count 6.88 4.8-10.8 K/uL Red Blood Count 3.54 4.2-5.4 M/uL Hemoglobin 11.2 12.0-16.0 g/dL Hematocrit 35.8 37-47 % Mean Corpuscular Volume 101.1 80-100 fL Mean Corpuscular Hemoglobin 31.6 25-34 pg Mean Corpuscular Hemoglobin Concent 31.3 32-36 g/dl Platelet Count 327 130-400 K/uL Mean Platelet Volume 11.1 7.4-10.4 fL Neutrophils (%) (Auto) 52.0 % Lymphocytes (%) (Auto) 30.4 % Monocytes (%) (Auto) 7.7 % Eosinophils (%) (Auto) 9.2 % Basophils (%) (Auto) 0.4 % Neutrophils # (Auto) 3.58 1.4-6.5 K/uL Lymphocytes # (Auto) 2.09 1.2-3.4 K/uL Monocytes # (Auto) 0.53 0.11-0.59 K/uL Eosinophils # (Auto) 0.63 0-0.5 K/uL Basophils # (Auto) 0.03 0-0.2 K/uL RDW Standard Deviation 48.6 36.4-46.3 fL RDW Coefficient of Variation 13.1 11.5-14.5 % Immature Granulocyte % (Auto) 0.3 % Immature Granulocyte # (Auto) 0.02 0.00-0.02 K/uL Prothrombin Time 10.3 9.0-12.0 SECONDS Prothromb Time International Ratio 1.0 0.9-1.1 Activated Partial Thromboplast Time 26.1 21.0-31.0 SECONDS Partial Thromboplastin Ratio 1.0 Sodium Level 139 136-145 mmol/L Potassium Level 3.5 3.5-5.1 mmol/L Chloride Level 102 98-107 mmol/L Carbon Dioxide Level 31 21-32 mmol/L Anion Gap 6.0 3-11 mmol/L Blood Urea Nitrogen 13 7-18 mg/dl Creatinine 1.10 0.60-1.20 mg/dl Est Creatinine Clear Calc Drug Dose 93.6 ml/min Estimated GFR () 69.2 Estimated GFR (Non- 59.7 BUN/Creatinine Ratio 11.5 10-20 Random Glucose 127 70-99 mg/dl Calcium Level 8.3 8.5-10.1 mg/dl Total Bilirubin 0.2 0.2-1 mg/dl Direct Bilirubin < 0.1 0-0.2 mg/dl Aspartate Amino Transf (AST/SGOT) 15 15-37 U/L Alanine Aminotransferase (ALT/SGPT) 20 12-78 U/L Alkaline Phosphatase 69 45-117 U/L Total Creatine Kinase 80 26-192 U/L Creatine Kinase MB 0.9 0.5-3.6 ng/ml Creatine Kinase MB Ratio 1.1 0-3.0 Troponin I < 0.015 0-0.045 ng/ml Pro-B-Type Natriuretic Peptide 40 0-450 pg/ml Total Protein 6.9 6.4-8.2 gm/dl Albumin 3.3 3.4-5.0 gm/dl Lipase 130 73-393 U/L Diagnostic Radiology ULTRASOUND LEFT VENOUS DOPP LOWER EXT UNILAT CLINICAL HISTORY: Left leg swelling COMPARISON STUDY: No previous studies for comparison. FINDINGS: Real-time and color flow Doppler imaging were performed. Flow was seen within the femoral, popliteal and calf veins with no intraluminal thrombus demonstrated. The saphenous vein is patent. IMPRESSION: No evidence of left lower extremity DVT. ------ CHEST ONE VIEW PORTABLE CLINICAL HISTORY: Atypical chest pain COMPARISON STUDY: 12/09/2016 FINDINGS: The cardiac and mediastinal contours remain stable. There is mild elevation of the interstitium. An element of mild pulmonary vascular congestion/fluid overload is suspected. There is no lobar consolidation. There are no pleural effusions.[ There is absence of the distal left clavicle, consistent with either erosive change or postsurgical change. This remain stable. IMPRESSION: 1. Suspected mild pulmonary vascular congestion/fluid overload. No evidence of focal pulmonary consolidation. EKG SR 78, no ST changes Normal EKG Impression Assessment and Plan 46 yo obese diabetic female with questionable h/o CAD presents with persistent chest pain as outpatient that has recently worsened in the last 24 hours. 1. Chest pain-etiologies include but are not limited to ACS, esophageal spasm, hiatal hernia, use of phentermine which she reports she uses for nausea. Admit to telemetry floor, serial cardiac enzymes. Consulted Cardiology who sees her as an outpatient. Plan is for echo in the morning. ASA 324 given in ER, nitro paste removed and will use SL nitro tabs as needed as she has a headache right now, cont Lipitor and BP control with home medications. Of note, she does not take aspirin regularly at home so if she did have a stent in the past, consideration for in-stent thrombosis is given. Her TRS is 0-1 so no heparin at this time is needed. 2. Diabetes II-well controlled with A1C 5.9 recently. Has complications including retinopathy, gastroparesis and neuropathy. On Lantus and Januvia at home. Plan for ISS with Lantus as inpatient. Glycemic consult placed. Antiemetics as needed. 3. HTN-controlled, cont home meds 4. HLP-on lipitor, last checked one year ago. Repeat fasting lipid panel ordered for am 5. Chronic pain-on narcotics including Fentanyl patch and Dilaudid PO PRN 6. COPD-stable, no wheezing. Currently non-smoker. Reports using oxygen via nasal canula at home PRN. Cont inhalers, duonebs prn. 7. BARI-uses CPAP mask at home. 8. Morbid obesity 9. Depression-likely related to chronic pain, appears stable. Cont Cymbalta 10. Seasonal allergies-cont Zyrtec, Singular and Flonase 11. CKD III 2/2 diabetes-follows with Nephrology as outpatient. 12. h/o DVT Full code DVT proph-Lovenox Dispo- to telemetry overnight Mariposa Guevara DO Hospitalist Level of Care Telemetry Advanced Directives Existing Living Will: Yes Existing Power of Fuel Agent: Yes Resuscitation Status FULL RESUSCITATION VTE Prophylaxis VTE Risk Assessment Done? Y/N: Yes Risk Level: Moderate Given or contraindicated: Enoxaparin (Lovenox)SQ Social Service Consult None Apply
[2016-12-13] MEDS ORDERED: DEXTROSE 50% 50 ML SYR IV PRN (12:00)
[2016-12-13] MEDS ORDERED: GLUCAGON FOR INJ 1 MG VIAL SQ PRN (12:00)
[2016-12-13] MEDS ORDERED: GLUCOSE 10 TABS/TUBE PO PRN (12:00)
[2016-12-13] MEDS ORDERED: GLUCOSE 40% GEL 15 GM TUBE PO PRN (12:00)
[2016-12-13] MEDS ORDERED: PHARMACY GLYCEMIC MGMT CONSULT PRN (12:22)
[2016-12-13] MEDS ORDERED: FENTANYL 50 MCG/HR TDSY TD SCH (12:30)
[2016-12-13] MEDS ORDERED: FENTANYL PATCH REMOVE & WASTE SCH (12:30)
[2016-12-13 12:49] LABS: CKMB/CK RATIO 1.3 (0-3.0)
--- NOTE | 2016-12-13 13:11 | ECHOCARDIOGRAM REPORT ---
*NOTICE TO RECEIVING [employer] This information is strictly Confidential and protected under [place] law. [place] law prohibits you from making any further disclosure of this information unless further disclosure is expressly permitted by the written consent of the person to whom it pertains or is authorized by law. A general authorization for the release of medical or other information is not sufficient for this purpose. Hospital accepts no responsibility if the information is made available to any other person, INCLUDING THE PATIENT. Interpretation Summary * Name: RAMÓN AYERS Study Date: 12/13/2016 11:22 AM BP: 117/77 mmHg * Patient Location: [facility]\S\N282\S\1 HR: 77 * : 1970 (M/d/yyyy) Gender: Female Height: 65 in * Age: 46 yrs Ethnicity: [place] Weight: 328 lb * Ordering Physician: Darrick Ramirez * Referring Physician: Self, Referred * Performed By: Krissy Robertson RDCS * * Reason For Study: Chest pain * BSA: 2.4 m2 * The study was technically difficult. * Compared to prior study, there is no significant change. * -- Conclusions -- * Left ventricular systolic function is normal. * Ejection Fraction = 65-70%. * The left ventricular wall motion is normal. * Pulse wave TDI of the anterior and posterior mitral annulas demonstrates normal LV relaxation * No significant valvular disease. Procedure Details * A complete two-dimensional transthoracic echocardiogram was performed (2D, M-mode, Doppler and color flow Doppler). * The study was technically limited. * The study was technically difficult. * A contrast injection of Definity was performed to improve assessment of LV function. * Contrast was injected into an intravenous site in the right arm. * One vial of Definity ultrasound contrast was diluted in normal saline to a total volume of 10 ml. A total of '3' ml of solution was administered during imaging. * Lot # [id number] of Definity utilized for procedure. * Expiration date NOV 24. * The attending nurse who injected the contrast agent was Georgina Wen RN. Left Ventricle * The left ventricle is normal in size. * There is no thrombus. * There is normal left ventricular wall thickness. * Ejection Fraction = 65-70%. * Left ventricular systolic function is normal. * The left ventricular wall motion is normal. Right Ventricle * The right ventricle is normal size. * The right ventricular systolic function is normal as assessed by tricuspid annular plane systolic excursion (TAPSE) (normal >1.5 cm). Atria * The left atrial size is normal. * Right atrial size is normal. * There is no evidence of atrial septal defect, but resolution does not allow assessment for a patent foramen ovale. Mitral Valve * The mitral valve is grossly normal. * There is no mitral valve stenosis. * Significant mitral regurgitation is absent. Tricuspid Valve * The tricuspid valve is not well visualized. * There is no tricuspid stenosis. * Significant tricuspid regurgitation is absent. Aortic Valve * The aortic valve is not well visualized. * Aortic stenosis is absent. * There is no significant aortic regurgitation. Pulmonic Valve * The pulmonary valve is not well seen, but the Doppler examination is normal without significant regurgitation or stenosis. Great Vessels * The aortic root is normal size. Pericardium/Pleural * There is no pericardial effusion. Great Vessels * Normal inferior vena cava diameter and respiratory variation suggests normal central venous pressure. Left Ventricular Diastolic Function * Pulse wave TDI of the anterior and posterior mitral annulas demonstrates normal LV relaxation MMode 2D Measurements and Calculations IVSd 1.1 cm LVIDd 5.1 cm LVIDs 3.1 cm LVPWd 1.2 cm IVS/LVPW 0.95 FS 39.7 % EDV(Teich) 126.1 ml ESV(Teich) 37.9 ml EF(Teich) 70.0 % EDV(cubed) 135.9 ml ESV(cubed) 29.8 ml EF(cubed) 78.1 % LV mass(C)d 237.8 grams LV mass(C)dI 97.4 grams/m\S\2 CO(Teich) 7.1 l/min CI(Teich) 2.9 l/min/m\S\2 SV(Teich) 88.2 ml SI(Teich) 36.1 ml/m\S\2 CO(cubed) 8.5 l/min CI(cubed) 3.5 l/min/m\S\2 SV(cubed) 106.1 ml SI(cubed) 43.5 ml/m\S\2 Ao root diam 2.8 cm Ao root area 6.0 cm\S\2 ACS 1.7 cm LA dimension 3.2 cm asc Aorta Diam 2.8 cm LA/Ao 1.1 LVOT diam 2.1 cm LVOT area 3.3 cm\S\2 LVAd ap4 38.2 cm\S\2 LVLd ap4 8.7 cm EDV(MOD-sp4) 137.0 ml LVAs ap4 15.8 cm\S\2 LVLs ap4 6.8 cm ESV(MOD-sp4) 31.4 ml EF(MOD-sp4) 77.1 % LVAd ap2 28.2 cm\S\2 LVLd ap2 7.8 cm EDV(MOD-sp2) 83.0 ml LVAs ap2 12.1 cm\S\2 LVLs ap2 5.8 cm ESV(MOD-sp2) 21.6 ml EF(MOD-sp2) 74.0 % CO(MOD-sp4) 8.4 l/min CI(MOD-sp4) 3.5 l/min/m\S\2 SV(MOD-sp4) 105.6 ml SI(MOD-sp4) 43.3 ml/m\S\2 CO(MOD-sp2) 4.9 l/min CI(MOD-sp2) 2.0 l/min/m\S\2 SV(MOD-sp2) 61.4 ml SI(MOD-sp2) 25.2 ml/m\S\2 Doppler Measurements and Calculations MV E max lat[place] 107.7 cm/sec MV A max lat[place] 86.3 cm/sec MV E/A 1.2 MV dec time 0.29 sec Ao V2 max 209.0 cm/sec Ao max PG 17.5 mmHg Ao max PG (full) 11.0 mmHg TAHIR(V,A) 2.0 cm\S\2 TAHIR(V,D) 2.0 cm\S\2 LV V1 max PG 6.5 mmHg LV V1 max 127.3 cm/sec PA V2 max 123.5 cm/sec PA max PG 6.1 mmHg PA acc slope 344.4 cm/sec\S\2 PA acc time 0.20 sec PA pr(Accel) -9.73 mmHg
[2016-12-13] MEDS: DOCUSATE SODIUM/SENNA 50/8.6MG TAB PO SCH ×2 (13:12→21:06)
[2016-12-13] MEDS: DICYCLOMINE HCL 10 MG CAP PO SCH ×2 (13:12→21:04)
[2016-12-13] MEDS: GABAPENTIN 600 MG TAB PO SCH ×2 (13:12→21:04)
[2016-12-13] MEDS: ENOXAPARIN 40 MG/0.4 ML SYR SC SCH (13:12)
[2016-12-13] MEDS: INSULIN ASPART 100 UNITS/ML 3 ML PEN SQ SCH ×3 (13:14→21:00)
--- NOTE | 2016-12-13 13:42 | Pharmacy Progress Note ---
Glycemic Control Intl Consult Date of Service December 13, 2016. Scope Glycemic Pharmacist consulted by Dr Guevara on 12/13/16 for glycemic control and to write orders per [facility] inpatient glycemic control protocol Objective Weight (Kilograms): 149.000 Accuchecks BSG (last 24hrs): Test 12/13/16 06:15 12/13/16 11:35 Random Glucose 127 mg/dl (70-99) Bedside Glucose 175 mg/dl (70-90) HbA1c A1c Reported as 5.9% in H&P, per patient she thinks this was drawn in the last 6 months or so Recent Pertinent Medications Outpatient Anti-diabetic Regimen: * Lantus 23 units SQ HS PRN high BSG (BSG > 135mg/dl) Pt reports that she has been taking this basically every day since she has not been able to get Januvia * Januvia 100mg PO daily in AM --> has not taken since January 2016 d/t insurance issues? The patient is currently ordered per provider: * Basal insulin: Lantus 10 units every 12 hours * Correctional Insulin: Novolog Correction per scale ACHS Goal Range: Low 100 mg/dL - High 140 mg/dL Correction Factor: 30 mg/dL/unit * Prandial insulin: Per carb ratio of 1 unit per 10 grams CHO consumed * Oral Agents: On hold Risk Factors for Hyperglycemia: * Obesity? * Diet Assessment & Plan ASSESSMENT: * 46yo T2DM female with presumed adequate outpatient diabetes control per reported A1c in H&P. Pt stated that she SMBG 5-6x/day and values usually run 105 -111mg/dl. She has not taken Januvia since January of last year d/t insurance issues. She has been taking Lantus daily (scheduled not PRN) since stopping Januvia. Pt would like to resume Januvia as soon as insurance issues are figured out. * Will re-order A1c in house as the exact date of last A1c unknown, it may be more than 90 days old. * Pt reporting that she has eaten more today with hospital provided food than she does at home. At home, she usually only eats once per day. * Considered lowering outpatient dosing of Lantus slightly as typically obese patients eat less in house as compared to outpatient. Often times outpatient dosing of Lantus covers some prandial needs and if continued in house can cause a low. Pt requesting outpatient dosing of Lantus 23 units HS. * Pt reports feeling signs/symptoms of hypo (lightheaded, dizzy) when BSG 95mg/ dl or below * Will increase low end of goal range to prevent this * ADA & AACE recommend a goal blood sugar range 140-180 mg/dl for the majority of critically ill & non-critically ill patients. However, more stringent targets may be selected in individual cases. Will utilize more stringent goal of 110-140mg/dl based on patient age & tight glycemic control as an outpatient. PLAN FOR INPATIENT GLYCEMIC CONTROL: SQ basal bolus insulin regimen based on outpatient dosing of basal = 23 units. * Basal insulin * Lantus 23 units SQ HS * Will keep once daily dosing at HS rather than BID dosing for easy transition back to outpatient * Bolus Insulin * NovoLog per scale ACHS or Q6hrs while NPO * Goal Range: Low 110 mg/dL - High 140 mg/dL * Correction Factor: 30 mg/dL/unit * Nutritional / Prandial insulin per carb ratio of 1 unit per 10 grams CHO consumed * Order A1c with AM labs * Please note that the plan above was derived based on current level of insulin resistance and hospital stress. These recommendations are appropriate for inpatient admission only. Plan of care upon discharge will need to be reassessed to avoid potential outpatient hypo/hyperglycemia. Thank you. Looking ahead to discharge: * Pt is reporting that she has not taken Januvia since January 2016 d/t insurance issues. * Recommend working with medical social worker to help with authorization of this medication * Keeping Lantus once daily at HS for easy transition back to outpatient dosing
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
[2016-12-13] MEDS: HYDROmorphone HCL 2 MG TAB PO PRN (16:38)
[2016-12-13] MEDS: DULERA~ORDER AWAITING ACTION SCH ×2 (16:39→23:36)
[2016-12-13] MEDS: LACTOBACILLUS ACIDOPHILUS (FLORANEX) TAB PO SCH (16:40)
[2016-12-13] MEDS: CHECK FENTANYL PATCH PLACEMENT SCH ×2 (16:41→23:36)
[2016-12-13] MEDS ORDERED: BUTALBITAL/ACETAMIN/CAFFEINE TAB PO PRN (17:00)
[2016-12-13] MEDS ORDERED: GI COCKTAIL PO PRN (18:00)
[2016-12-13 18:38] LABS: CKMB/CK RATIO 1.7 (0-3.0)
[2016-12-13] MEDS ORDERED: CALAMINE/PRAMOXINE LOTION 177 APPLN/177 ML BTL EXT PRN (20:30)
[2016-12-13] MEDS ORDERED: ATORVASTATIN 40 MG TAB PO SCH (21:00)
[2016-12-13] MEDS ORDERED: INSULIN GLARGINE SOLOSTAR 100 UNITS/ML 3 ML PEN SC SCH ×2 (21:00)
[2016-12-13] MEDS ORDERED: MONTELUKAST SOD 10 MG TAB PO SCH (21:00)
[2016-12-13] MEDS ORDERED: FENOFIBRATE 145 MG TAB PO SCH (21:00)
[2016-12-13] MEDS ORDERED: DULOXETINE (CYMBALTA) 30 MG CAP PO SCH (21:00)
[2016-12-13] MEDS: DOXYCYCLINE HYCLATE 100 MG CAP PO SCH (21:04)
[2016-12-13] MEDS: CARVEDILOL 3.125 MG TAB PO SCH (21:06)
[2016-12-13] MEDS: ALUMINUM/MAGNESIUM SUSP 72 ML, LIDOCAINE HCL 2% VISCOUS SOLN 24 ML, BARCODE IDENTIFIER ... PO PRN ×2 (23:43)
[2016-12-14] MEDS: HYDROmorphone HCL 2 MG TAB PO PRN (01:49)
[2016-12-14 03:34] VITALS: BP 110/67; PULSE 79; TEMP 36.5; O2SAT 94
[2016-12-14 07:35] VITALS: BP 124/79; PULSE 77; TEMP 37; O2SAT 94
[2016-12-14 07:37] LABS: CHOLESTEROL/HDL RATIO 3.7
[2016-12-14] MEDS: DULERA~ORDER AWAITING ACTION SCH (07:55)
[2016-12-14] MEDS: CARVEDILOL 3.125 MG TAB PO SCH (08:01)
[2016-12-14] MEDS: LACTOBACILLUS ACIDOPHILUS (FLORANEX) TAB PO SCH (08:01)
[2016-12-14] MEDS: DICYCLOMINE HCL 10 MG CAP PO SCH (08:01)
[2016-12-14] MEDS: DOXYCYCLINE HYCLATE 100 MG CAP PO SCH (08:02)
[2016-12-14] MEDS: DOCUSATE SODIUM/SENNA 50/8.6MG TAB PO SCH (08:02)
[2016-12-14] MEDS: ASPIRIN 81 MG ECTAB PO SCH (08:02)
[2016-12-14] MEDS: GABAPENTIN 600 MG TAB PO SCH (08:02)
[2016-12-14] MEDS: CHECK FENTANYL PATCH PLACEMENT SCH (08:03)
[2016-12-14] MEDS: ENOXAPARIN 40 MG/0.4 ML SYR SC SCH (08:03)
[2016-12-14] MEDS: INSULIN ASPART 100 UNITS/ML 3 ML PEN SQ SCH (08:06)
[2016-12-14 08:33] LABS: ESTIMATED AVERAGE GLUCOSE 128 mg/dl; HA1C FLAG Normal (Normal)
[2016-12-14] MEDS ORDERED: FLUTICASONE PROPIONATE NA SPR 16 GM BTL NAE SCH (09:00)
[2016-12-14] MEDS ORDERED: BUDESONIDE 0.5 MG/2 ML VIAL (PULMICORT) INH SCH (09:00)
[2016-12-14] MEDS ORDERED: PANTOprazole SOD 40 MG TAB PO SCH (09:00)
[2016-12-14] MEDS ORDERED: LOSARTAN POTASSIUM 50 MG TAB PO SCH (09:00)
[2016-12-14] MEDS ORDERED: ISOSORBIDE MONONITRATE 30 MG TABCR PO SCH (09:00)
[2016-12-14] MEDS ORDERED: CETIRIZINE HCL 10 MG TAB PO SCH (09:00)
[2016-12-14] MEDS ORDERED: MAGNESIUM OXIDE 400 MG TAB PO SCH (09:00)
--- NOTE | 2016-12-14 10:21 | Pharmacy Progress Note ---
Glycemic Control: Progress Nt Date of Service December 14, 2016. Scope Glycemic Pharmacist consulted by on 12/13/16 for glycemic control and to write orders per [facility] inpatient glycemic control protocol. Objective Accuchecks BSG (last 24hrs): Test 12/13/16 11:35 12/13/16 16:16 12/13/16 19:37 Bedside Glucose 175 mg/dl (70-90) 80 mg/dl (70-90) 128 mg/dl (70-90) Laboratory Data (last 24hrs) Test 12/14/16 06:16 Hemoglobin A1c 6.1 % HbA1c: Test 12/14/16 06:16 Hemoglobin A1c 6.1 % (4.5-5.6) H Recent Pertinent Medications Outpatient Anti-diabetic Regimen: * Lanuts 23 units HS (compliance varies) * BSG > 135 mg/dl * A1c = 6.1 % from 12/14/16 Risk Factors for Insulin Resistance: * Infection: Doxy po BID * Diet:AHA/DM2 Assessment & Plan ASSESSMENT: * ADA & AACE recommend a goal blood sugar range 140-180 mg/dl for the majority of critically ill & non-critically ill patients. However, more stringent targets may be selected in individual cases. Initial: * 46yo T2DM female with presumed adequate outpatient diabetes control per reported A1c in H&P. Pt stated that she SMBG 5-6x/day and values usually run 105 -111mg/dl. She has not taken Januvia since January of last year d/t insurance issues. She has been taking Lantus daily (scheduled not PRN) since stopping Januvia. Pt would like to resume Januvia as soon as insurance issues are figured out. * Will re-order A1c in house as the exact date of last A1c unknown, it may be more than 90 days old. * Pt reporting that she has eaten more today with hospital provided food than she does at home. At home, she usually only eats once per day. * Considered lowering outpatient dosing of Lantus slightly as typically obese patients eat less in house as compared to outpatient. Often times outpatient dosing of Lantus covers some prandial needs and if continued in house can cause a low. Pt requesting outpatient dosing of Lantus 23 units HS. * Pt reports feeling signs/symptoms of hypo (lightheaded, dizzy) when BSG 95mg/ dl or below * Will increase low end of goal range to prevent this 12/14/16: * BSGs overcorrected yesterday with Novolog CF/CR. Will remove CR today. If BSGs seem to elevate postprandially will consider resumption of CR. Otherwise, use Novolog only as a CF to elevated BSGs. * Continue home dose of Lantus. * Of note, A1c resulted today at 6.1% indicating well controlled BSGs as an outpatient currently. Recommend pt resume home DM regimen on discharge. PLAN FOR INPATIENT GLYCEMIC CONTROL: * Basal insulin * Continue - Lantus 23 units SQ HS * Will keep once daily dosing at HS rather than BID dosing for easy transition back to outpatient * Bolus Insulin * NovoLog per scale ACHS or Q6hrs while NPO * Goal Range: Low 110 mg/dL - High 140 mg/dL * Continue - Correction Factor: 30 mg/dL/unit * Discontinue - Nutritional / Prandial insulin Looking ahead to discharge: * Pt is reporting that she has not taken Januvia since January 2016 d/t insurance issues. * Recommend working with psychologist social to help with authorization of this medication * Keeping Lantus once daily at HS for easy transition back to outpatient dosing * Please note that the plan above was derived based on current level of insulin resistance and hospital stress. These recommendations are appropriate for inpatient admission only. Plan of care upon discharge will need to be reassessed to avoid potential outpatient hypo/hyperglycemia. Thank you.
--- NOTE | 2016-12-14 10:21 | Discharge Instructions ---
Discharge Instructions Date of Service December 14, 2016. Admission Reason for Admission: Atypical Chest Pain Discharge Discharge Diagnosis / Problem: Atypical chest pain cammy non-cardiac etiology Discharge Goals Goal(s): Prevent Disease Progression Activity Recommendations Activity Limitations: per Instructions/Follow-up section . Instructions / Follow-Up Instructions / Follow-Up Please continue all medications as previously prescribed. With a possible history of strokes/TIA in the past, you should be taking aspirin 325mg every day. As you have had difficulty with this in the past, I would recommend you speak with your doctor about this prior to restarting. You had a negative cardiac workup here including normal EKG, normal serial cardiac enzymes and a normal resting echocardiogram. Prior ER visit demonstrated the same and a negative blood clot in the lungs. With the GI cocktail being somewhat helpful for you, the pain you are experiencing is likely non-cardiac. Please work with your PCP to elucidate a cause. You have a follow-up appointment scheduled with Dr. Morgan on 12/17 @ 11:05. It was a pleasure taking care of you! Call if you have any questions or problems. You can reach a [facility] hospitalist on duty at [facility] 24 hours a day by calling [phone]. Take care of yourself. Mariposa Guevara DO [facility] Hospitalist Current Hospital Diet Patient's current hospital diet: AHA Diet (Heart Healthy), Diabetes Type 2 Diet Discharge Diet Recommended Diet: AHA Diet (Heart Healthy), Diabetes Type 2 Diet Procedures Procedures Performed: TTE Pending Studies Studies pending at discharge: no Laboratory Results Hemoglobin A1c Test 12/14/16 06:16 Range/Units Estimated Average Glucose 128 mg/dl Hemoglobin A1c 6.1 H 4.5-5.6 % Lipid Panel Test 12/14/16 06:16 Range/Units Triglycerides Level 163 H 0-150 mg/dl Cholesterol Level 128 0-200 mg/dl HDL Cholesterol 35 mg/dl Cholesterol/HDL Ratio 3.7 LDL Cholesterol, Calculated 60 mg/dl Medical Emergencies . Who to Call and When: Medical Emergencies: If at any time you feel your situation is an emergency, please call 911 immediately. . Non-Emergent Contact Non-Emergency issues call your: Primary Care Provider . . "Provider Documentation" section prepared by Mariposa Guevara. . VTE Core Measure Inpt VTE Proph given/why not?: Enoxaparin (Lovenox)SQ
--- NOTE | 2016-12-14 10:29 | Discharge Summary ---
Discharge Summary Date of Service December 14, 2016. Discharge Summary Admission Date: December 13, 2016 at 08:39 Discharge Date: December 14, 2016 Discharge Disposition: Home Principal Diagnosis: Atypical chest pain DMII with complications including retinopathy, nephropathy and gastroparesis Migraines managed with Botox injections HTN Dyslipidemia Chronic pain on narcotics COPD BARI Morbid Obesity Depression Seasonal allergies CKD Stage III h/o DVT h/o TIAs Procedures: TTE Vaccinations: None. Consultations: Cardiology Pending Studies/Follow-Up: see instructions below Medication Reconciliation Continued Medications: Albuterol Sulfate (Proair Respiclick) 108 Mcg/Act Aer 2 PUFFS INH QID PRN for SOB/Wheezing Atorvastatin (Atorvastatin Calcium) 40 Mg Tab 40 MG PO HS Budesonide (Inhalation) (Pulmicort) 0.5 Mg/2 Ml Joanna 0.5 MG INH DAILY Carvedilol (Carvedilol) 3.125 Mg Tab 3.125 MG PO BID Cetirizine (Zyrtec) 10 Mg Tab 10 MG PO QAM, TAB Cholecalciferol (Vitamin D) 2,000 Unit Tab 4000 INTER.UNIT PO HS Dicyclomine Hcl (Dicyclomine Hcl) 10 Mg Cap 10 MG PO TID Doxycycline Monohydrate (Monodox) 100 Mg Cap 100 MG PO BID, CAP Duloxetine HCl (Duloxetine HCl) 30 Mg Cap 30 MG PO HS Epinephrine (Epinephrine) 0.3 Mg/0.3 Ml Inj 0.3 MG IM UD PRN for ALLERGIC REACTION Fenofibrate (Fenofibrate) 145 Mg Tab 145 MG PO HS Fentanyl (Duragesic) 50 Mcg Tdsy 50 MCG TOP [id number] Ferrous Sulfate (Ferrous Sulfate) 325 Mg Tab 325 MG PO BID Ferrous Sulfate Dried (Sm Slow Release Iron) 143 Mg Tab 286 MG PO QAM Fluticasone Propionate (Fluticasone Propionate) 120 Sprays/6000 Mcg Inha 2 SPRAYS OBDULIA DAILY Gabapentin (Gabapentin) 600 Mg Tab 600 MG PO TID Hydrocortisone 2.5% (Rectal) (Anusol-Hc 2.5%) 2.5 % Cre 1 APPLN TOP BID for 7 Days, #30 GM Hydromorphone Hcl (Dilaudid) 4 Mg Tab 2 MG PO Q6H PRN for Pain, TAB Insulin Glargine (Lantus Solostar) 100 Unit/Ml Inj 23 UNITS SC HS PRN for Elevated Blood Sugar ADMINISTER MD DIRECTS Ipratropium-Albuterol (Duoneb) 3 Ml Nebu 1 TREATMENT NEB Q4H PRN for SOB/Wheezing, INHA Isosorbide Mononitrate Ext Rel (Imdur Ext Rel) 30 Mg Tabcr 30 MG PO QAM Losartan Potassium (Cozaar) 100 Mg Tab 100 MG PO QAM Magnesium Oxide (Mag-Ox) 400 Mg Tab 400 MG PO QAM, TAB Menthol (Topical Analgesic) (Biofreeze Roll-On) 4 % Gel 1 APPLN TOP QID Mometasone Furoate-Formoterol (Dulera 100/5 Mcg) 1 Aer Aer 1 PUFF INH BID Montelukast Sod (Montelukast Sodium) 10 Mg Tab 10 MG PO HS Nitroglycerin (Nitrostat) 0.4 Mg/1 Tab Subl 1 TAB SL UD PRN for chest pain, BTL take every 5 min x 3 doses as needed for chest pain Ondansetron Hcl (Zofran) 8 Mg Tab 8 MG PO QID PRN for nausea Oxygen (Oxygen) Gas 2 LITERS NA PRN PRN for Shortness of Breath Pantoprazole (Pantoprazole Sodium) 40 Mg Tab 40 MG PO QAM TAKE THIS MEDICATION ONCE DAILY 30 MINUTES BEFORE BREAKFAST Phentermine Hcl (Phentermine Hcl) 15 Mg Cap 1 CAP PO QAM Polyethylene Glycol 3350 (Miralax) 1 Pow Pow 17 GM PO DAILY, #255 GM Probiotic Product (Bacid) 1 Tab Tab 1 TAB PO BID Promethazine Hcl (Phenergan) 25 Mg Tab 25 MG PO Q6H PRN for Nausea, TAB Ranitidine Hcl (Zantac) 300 Mg Tab 300 MG PO BID Sennosides-Docusate Sodium (Senna-S) 1 Tab Tab 3 TABS PO TID Sitagliptin Phosphate (Januvia) 100 Mg Tab 100 MG PO QAM, TAB Solifenacin (Vesicare) 10 Mg Tab 10 MG PO QAM, TAB Zolpidem Tartrate (Zolpidem Tartrate) 5 Mg Tab 5 MG PO HS PRN for Sleep, % TAKE THIS MEDICATION 30-60 MINUTES PRIOR TO SLEEP Admission Information HPI (per Admitting provider): 46 yo F with multiple medical problems who is an obese diabetic with a previous 32 year h/o smoking with a h/o heart disease with stent placement presents with worsening chest pain that radiates across her diaphragm, goes up into her L shoulder and down into her L hand that began yesterday. The pain is constant with periods of sharpness, and she cannot describe what triggers the pain to be worse. She state that she was just sitting when then pain began and she has had multiple episodes of pain for years. There are documented visits to her primary care physician and Chief Clerk recently in october with this is a chief complaint and one visit to the Er a few days ago. She describes SOB when the pain gets worse but there is no sweating. She does report nausea and vomiting yesterday, but this is an ongoing issue related to her gastroparesis. She did have a dobutamine stress test performed on 10/27/16 which was normal and today in the ER her EKG, trop and CXR are all negative for ischemia or obvious cause of her pain. Her pain is relieved with nitro tabs which she uses at home and she is on Imdur, as well. Apparently she reports having a stent placed but the ruling machine set up operator in [place] spoke with [facility] Cardiology and denied this taking place. It is uncertain whether or not she has ever actually had a heart catheterization per the records. She was in the ER earlier this week and the workup at that time was negative including EKG, troponin an CT PE. Physical Exam (per Admitting): GEN: morbid obesity, in no acute distress, but holding her head as though she is in pain, appears fatigued but is mentating clearly HEENT: NC/AT, PERRL, normal sclerae, mucous membranes are moist CARDIO: reg rate, S1/2 heard without m/g/r LUNGS: CTA bilaterally, no crackles, rales or wheezes, good diaphragmatic excursion. ABD: soft, non-tender, non-distended, no rebound or guarding, +BS EXTREMITY: RP and DP palpable 2+ bilat, no LE swelling or edema, extremities are warm and well-perfused NEURO: CN 2-12 grossly intact, no gross focal deficits MUSC: limited exam as patient is obese and fatigued, no gross focal deficits, moves all extremities equally SKIN: warm and dry, has well-scratched scabs all over abdomen area and on lower legs Hospital Course She was admitted to the telemetry floor and serial cardiac enzymes were drawn and negative. Cardiology was consulted and performed a resting TTE which revealed normal left and right ventricular size and function, an EF 65-70% and no significant valvular disease. She developed a return of her pain shortly after dinner which was relieved by heartburn. ACS was ruled out, EKGs remained nonischemic and no events occurred on telemetry. Her chest pain was thought to be 2/2 non-cardiac cause. She does have a hiatal hernia, and recently underwent endoscopy as an outpatient. The recommendation was given for her to cont working with her GI and other outpatient physicians to continue working this pain up if it continues after discharge. Also of note, she was counseled on the use of full dose aspirin as a secondary prophylaxis in the setting of multiple reported prior TIAs and some aspirin use in the setting of a questionable stent. She states that she was on aspirin in the past and was having trouble with bleeding episodes if she got a small kassy or cut in her skin so stopped for this reason. She verbalized that she will pursue a discussion about the need to restart this again with her PCP and Chief Clerk. Of note, currently the records reflect that she does not have a stent, and that this was confirmed with her prior Chief Clerk in [facility]. On day of discharge she was afebrile and hemodynamically unstable. Physical exam was unremarkable except for morbid obesity. She was discharged in stable condition with close follow-up with PCP. Total time spent on discharge = 60 mins This includes examination of the patient, discharge planning, medication reconciliation, and communication with other providers. Discharge Instructions Discharge Instructions Date of Service December 14, 2016. Admission Reason for Admission: Atypical Chest Pain Discharge Discharge Diagnosis / Problem: Atypical chest pain likley non-cardiac etiology Discharge Goals Goal(s): Prevent Disease Progression Activity Recommendations Activity Limitations: per Instructions/Follow-up section . Instructions / Follow-Up Instructions / Follow-Up Please continue all medications as previously prescribed. With a possible history of strokes/TIA in the past, you should be taking aspirin 325mg every day. As you have had difficulty with this in the past, I would recommend you speak with your doctor about this prior to restarting. You had a negative cardiac workup here including normal EKG, normal serial cardiac enzymes and a normal resting echocardiogram. Prior ER visit demonstrated the same and a negative blood clot in the lungs. With the GI cocktail being somewhat helpful for you, the pain you are experiencing is likely non-cardiac. Please work with your PCP to elucidate a cause. You have a follow-up appointment scheduled with Dr. Morgan on 12/17 @ 11:05. It was a pleasure taking care of you! Call if you have any questions or problems. You can reach a [facility] on duty at [facility] 24 hours a day by calling [phone]. Take care of yourself. Mariposa Guevara, DO [facility] Hospitalist Additional Copies To Leonid Morgan M.D.
[2016-12-14 10:55] VITALS: BP 124/79; PULSE 77; TEMP 37; O2SAT 94
[2016-12-14] MEDS: ALUMINUM/MAGNESIUM SUSP 72 ML, LIDOCAINE HCL 2% VISCOUS SOLN 24 ML, BARCODE IDENTIFIER ... PO PRN ×2 (11:13)
== END 2016-12-14 11:30 | disposition home or self-care (01) ==
LOC: ENRESERVTM → ENRESERVDT → C.EDB 05:58 → C.MED 08:39
PROVIDERS: ADMIT Hospitalist; ATTEND Hospitalist
DX: R07.89 Other chest pain (principal); E11.319 Type 2 diabetes mellitus with unspecified diabetic retinopathy without macular edema; E11.40 Type 2 diabetes mellitus with diabetic neuropathy, unspecified; E11.43 Type 2 diabetes mellitus with diabetic autonomic (poly)neuropathy; Z79.84 Long term (current) use of oral hypoglycemic drugs; I10 Essential (primary) hypertension; E78.5 Hyperlipidemia, unspecified; J44.9 Chronic obstructive pulmonary disease, unspecified; G47.33 Obstructive sleep apnea (adult) (pediatric); F32.9 Major depressive disorder, single episode, unspecified; J30.2 Other seasonal allergic rhinitis; N18.3 Chronic kidney disease, stage 3 (moderate); E08.22 Diabetes mellitus due to underlying condition with diabetic chronic kidney disease; Z86.718 Personal history of other venous thrombosis and embolism; E66.01 Morbid (severe) obesity due to excess calories; Z87.891 Personal history of nicotine dependence; K21.9 Gastro-esophageal reflux disease without esophagitis; G35 Multiple sclerosis; M19.90 Unspecified osteoarthritis, unspecified site; Z98.51 Tubal ligation status; Z82.49 Family history of ischemic heart disease and other diseases of the circulatory system; Z83.3 Family history of diabetes mellitus; Z82.3 Family history of stroke; Z86.73 Personal history of transient ischemic attack (TIA), and cerebral infarction without residual deficits; G89.4 Chronic pain syndrome

== ENCOUNTER 2016-12-22 17:26 | Emergency (ER) | payer OTHER ==
[~2016-12-22 17:26] MED LIST changes: +NTRGSL4 SL
[2016-12-22] MEDS ORDERED: RANITIDINE HCL 50 MG/100 ML D5W IV STA ×2 (17:31→17:38)
[2016-12-22] MEDS ORDERED: SODIUM CHLORIDE 0.9% 1000ML 1,000 ML IV STA (17:31)
[2016-12-22 17:36] VITALS: O2SAT 100
[2016-12-22] MEDS ORDERED: LATA0.009 OP (18:05)
[2016-12-22] MEDS ORDERED: BENZ100C84 PO (18:05)
[2016-12-22] MEDS ORDERED: INDO75CA PO (18:05)
[2016-12-22] MEDS ORDERED: TEMA30CA4 PO (18:05)
[2016-12-22] MEDS ORDERED: CLR10 PO (18:05)
[2016-12-22] MEDS ORDERED: RANI150T3 PO (18:58)
[2016-12-22] MEDS ORDERED: PRED20TA2 PO (18:58)
[2016-12-22] MEDS ORDERED: EPP3/2 IM (18:58)
--- NOTE | 2016-12-22 19:09 | EMERGENCY ROOM VISIT NOTE ---
History Report prepared by [employer]: Rodrigo Coffman Under the Supervision of: Dr. Tanner Doran M.D. First contact with patient: 17:28 Chief Complaint: ALLERGIC REACTION Stated Complaint: ALLERGIC REACTION History of Present Illness The patient is a 46 year old female who presents to the Emergency Room by EMS with complaints of a worsening allergic reaction occurring just prior to arrival. Per EMS, the patient was stung by two yellow-jackets. She has a known allergy to bees. She self administered an EpiPen following the incident. The patient was given 0.3 mg of Epinephrine en route which has improved her symptoms. EMS states that the patient's primary complaint is a closing sensation in her throat and difficulty breathing. They note that her oxygen saturation was in the high 80 prior to giving her supplemental oxygen. They also note that the patient is allergic to Benadryl. Source of History: patient, EMS Onset: Just prior to arrival Quality: other (allergic reaction) Timing: worsening Modifying Factors (Relieving): other (Epinephrine) Associated Symptoms: + SOB Review of Systems See HPI for pertinent positives & negatives. A total of 10 systems reviewed and were otherwise negative. Past Medical & Surgical Medical Problems: (1) Ambulatory dysfunction (2) Asthma, moderate persistent (3) Atypical chest pain (4) Chronic constipation (5) Chronic low back pain (6) CKD (chronic kidney disease) stage 3, GFR 30-59 ml/min (7) COPD (chronic obstructive pulmonary disease) (8) Depression (9) Diabetes mellitus type 2 in obese (10) Diabetic gastroparesis (11) Dyslipidemia (12) GERD (gastroesophageal reflux disease) (13) History of DVT (deep vein thrombosis) (14) History of migraine (15) HTN (hypertension) (16) Insomnia (17) Left facial numbness (18) Multiple sclerosis (19) Obesity (20) Osteoarthritis (21) PUD (peptic ulcer disease) (22) Vertigo Surgical Problems: (1) H/O bilateral breast reduction surgery (2) H/O colonoscopy (3) H/O esophagogastroduodenoscopy (4) H/O exploratory laparotomy (5) History of arthroscopy of knee (6) History of carpal tunnel surgery (7) History of tubal ligation Family History Cancer SISTER Cardiac disorder FATHER MOTHER GRANDFATHER GRANDMOTHER Diabetes mellitus GRANDFATHER GRANDMOTHER FH: cancer FH: heart disease FHx: gallbladder disease FHx: lung disease Hypertension FATHER MOTHER Seizures FATHER Stroke FATHER Social History Smoking Status: Former Smoker Alcohol Use: none Drug Use: none Marital Status: Housing Status: lives with family Occupation Status: unemployed Current/Historical Medications Scheduled Atorvastatin (Atorvastatin Calcium), 40 MG PO HS Budesonide (Inhalation) (Pulmicort), 0.5 MG INH DAILY Carvedilol (Carvedilol), 3.125 MG PO BID Cetirizine (Zyrtec), 10 MG PO QAM Cholecalciferol (Vitamin D), 4,000 INTER.UNIT PO HS Dicyclomine Hcl (Dicyclomine Hcl), 10 MG PO TID Doxycycline Monohydrate (Monodox), 100 MG PO BID Duloxetine HCl (Duloxetine HCl), 30 MG PO HS Epinephrine (Epipen), 0.3 MG IM UD Fenofibrate (Fenofibrate), 145 MG PO HS Fentanyl (Duragesic), 50 MCG TOP [id number] Ferrous Sulfate (Ferrous Sulfate), 325 MG PO BID Fluticasone Propionate (Fluticasone Propionate), 2 SPRAYS OBDULIA DAILY Gabapentin (Gabapentin), 600 MG PO TID Hydrocortisone 2.5% (Rectal) (Anusol-Hc 2.5%), 1 APPLN TOP BID Indomethacin Ext Rel (Indocin Ext Rel), 75 MG PO DAILY Isosorbide Mononitrate Ext Rel (Imdur Ext Rel), 30 MG PO QAM Latanoprost (Xalatan 0.005% Oph Iris), 1 DROPS OP HS Loratadine (Claritin), 10 MG PO DAILY Losartan Potassium (Cozaar), 100 MG PO QAM Magnesium Oxide (Mag-Ox), 400 MG PO QAM Menthol (Topical Analgesic) (Biofreeze Roll-On), 1 APPLN TOP QID Mometasone Furoate-Formoterol (Dulera 100/5 Mcg), 1 PUFF INH BID Montelukast Sod (Montelukast Sodium), 10 MG PO HS Pantoprazole (Pantoprazole Sodium), 40 MG PO QAM Phentermine Hcl (Phentermine Hcl), 1 CAP PO QAM Polyethylene Glycol 3350 (Miralax), 17 GM PO DAILY Prednisone (Prednisone Tab), 0 PO DAILY Probiotic Product (Bacid), 1 TAB PO BID Ranitidine Hcl (Zantac), 300 MG PO BID Ranitidine Hcl (Zantac), 150 MG PO BID Sennosides-Docusate Sodium (Senna-S), 3 TABS PO TID Sitagliptin Phosphate (Januvia), 100 MG PO QAM Solifenacin (Vesicare), 10 MG PO QAM Temazepam (Restoril), 30 MG PO HS Scheduled PRN Albuterol Sulfate (Proair Respiclick), 2 PUFFS INH QID PRN for SOB/Wheezing Benzonatate (Tessalon Perles), 100 MG PO TID PRN for Cough Epinephrine (Epinephrine), 0.3 MG IM UD PRN for ALLERGIC REACTION Hydromorphone Hcl (Dilaudid), 2 MG PO Q6H PRN for Pain Insulin Glargine (Lantus Solostar), 23 UNITS SC HS PRN for Elevated Blood Sugar Ipratropium-Albuterol (Duoneb), 1 TREATMENT NEB Q4H PRN for SOB/Wheezing Nitroglycerin (Nitrostat), 1 TAB SL UD PRN for chest pain Ondansetron Hcl (Zofran), 8 MG PO QID PRN for nausea Oxygen (Oxygen), 2 LITERS NA PRN PRN for Shortness of Breath Promethazine Hcl (Phenergan), 25 MG PO Q6H PRN for Nausea Zolpidem Tartrate (Zolpidem Tartrate), 5 MG PO HS PRN for Sleep Allergies Coded Allergies: Bee Venom (Verified Allergy, Severe, THROAT SWELLS, 12/22/16) Morphine (Verified Allergy, Severe, ANAPHYLAXIS, 12/22/16) Morphine and Related (Verified Allergy, Severe, ANAPHYLAXIS, 12/22/16) Wasp Venom Protein (Verified Allergy, Severe, THROAT SWELLS, 12/22/16) Adhesives (Verified Allergy, Intermediate, RASH, 12/22/16) Celecoxib (Verified Allergy, Intermediate, HIVES, 12/22/16) Codeine (Verified Allergy, Intermediate, HIVES, 12/22/16) Hydrocodone (Verified Allergy, Intermediate, HIVES, 12/22/16) Oxycodone (Verified Allergy, Intermediate, HIVES, 12/22/16) Penicillins (Verified Allergy, Intermediate, HIVES, 12/22/16) Salicylates (Verified Allergy, Intermediate, GI SYMPTOMS, 12/22/16) Tramadol (Verified Allergy, Intermediate, HIVES, 12/22/16) Nortriptyline (Verified Allergy, Unknown, UNKNOWN, 12/22/16) Metoclopramide (Verified Adverse Reaction, Intermediate, HYPERACTIVITY, ) NSAIDs (Verified Adverse Reaction, Intermediate, HIVES, DYSPEPSIA, 12/22/16 ) Celebrex (hives), Valdecoxib (hives), Vioxx (hives), salicylates (dyspepsia) per PCP records Diphenhydramine (Verified Adverse Reaction, Mild, Difficulty urinating, ) Physical Exam Vital Signs Date Time Temp Pulse Resp B/P Pulse Ox O2 Delivery O2 Flow Rate FiO2 12/22/16 19:12 87 22 103/82 95 12/22/16 18:39 88 18 116/75 96 Room Air 12/22/16 18:02 82 20 114/68 97 Room Air 12/22/16 17:51 84 20 97/61 99 Room Air 12/22/16 17:36 100 Room Air 12/22/16 17:33 78 12/22/16 17:33 100 Room Air 12/22/16 17:27 78 20 135/67 100 Physical Exam GENERAL: Patient is a healthy-appearing well-nourished HEAD: Normocephalic atraumatic EYES: Ocular movements intact pupils equal and react to light OROPHARYNX mucous membranes are moist no exudates present no erythema or edema present. No stridor. NECK: Supple no nuchal rigidity CHEST: Good equal expansion LUNGS: Clear and equal to auscultation. No wheezing. CARDIAC: Normal S1 and S2 ABDOMEN: Soft nontender no guarding BACK: No CVA tenderness EXTREMITIES: No pain upon palpation normal muscle strength in all groups no clubbing cyanosis or edema NEURO: Patient is following commands is answering questions appropriately. Alert and oriented x3 Cranial Nerves 2-12 grossly intact Medical Decision & Procedures Medications Administered Medications (Trade) Dose Ordered Sig/Stepan Route Start Time Stop Time Status Last Admin Dose Admin Sodium Chloride (Nss 1000ml) 1,000 ml @ 999 mls/hr Q1H1M STAT IV 12/22/16 17:31 12/22/16 18:31 DC 12/22/16 17:31 999 MLS/HR Ranitidine HCl (zANTac IV) 50 mg NOW STAT IV 12/22/16 17:38 12/22/16 17:39 DC 12/22/16 17:38 50 MG ED Course 1727: Past medical records reviewed. The patient was evaluated in room A1. A complete history and physical examination was performed. 1730: Ordered Zantac IV 50 mg IV, Sodium Chloride 1000 ml @ 999 mls/hr. 1901: Upon reexamination the patient is resting comfortably. I discussed results and treatment plan with the patient. She verbalizes agreement and understanding. The patient is ready for discharge. Medical Decision Differential diagnosis: Etiologies such as allergic reaction, anaphylaxis, urticaria, Paz-Quintin syndrome, toxic epidermal necrolysis, erythema multiforme, cellulitis, as well as others were entertained. This is a 46-year-old female who presents emergency department after being stung by bee. The patient received 2 shots of appendectomy en route to the emergency department. She was given Solu-Medrol. Upon arrival to emergency department the patient was given Zantac along with a normal saline bolus. She was observed in emergency department for a total of 2 hours. At that point the patient wished to leave. She was given a prescription for an EpiPen along with prednisone as well as Zantac. Patient was in agreement with the treatment plan. Impression Primary Impression: Allergic reaction Scribe Attestation The scribe's documentation has been prepared under my direction and personally reviewed by me in its entirety. I confirm that the note above accurately reflects all work, treatment, procedures, and medical decision making performed by me. Departure Information Dispostion Home / Self-Care Prescriptions Ranitidine Hcl (ZANTAC) 150 Mg Tab 150 MG PO BID for 7 Days, #14 TAB Prov: Tanner Doran MD 12/22/16 Prednisone (Prednisone Tab) 20 Mg Tab 0 PO DAILY, #7 TAB 2 TABS DAILY FOR 2 DAYS, THEN 1 TAB DAILY FOR 2 DAYS, THEN 1/2 TAB DAILY FOR 2 DAYS. Prov: Tanner Doran MD 12/22/16 Epinephrine (EPIPEN) 0.3 Mg/0.3 Ml Inj 0.3 MG IM UD, #2 BOX Prov: Tanner Doran MD 12/22/16 Referrals Leonid Morgan M.D. (PCP) Forms HOME CARE DOCUMENTATION FORM, IMPORTANT VISIT INFORMATION Patient Instructions ED Allergic Reaction General Other, My [facility] Additional Instructions You have been examined and treated today on an emergency basis only. This is not a substitute for, or an effort to provide, complete comprehensive medical care. It is impossible to recognize and treat all injuries or illnesses in a single emergency department visit. It is therefore important that you follow up closely with Dr Morgan. Call as soon as possible for an appointment. Thank you for your time and consideration. I look forward to speaking with you again soon. Please don't hesitate to call us if you have any questions. Problem Qualifiers Primary Impression: Allergic reaction Encounter type: initial encounter Qualified Codes: T78.40XA - Allergy, unspecified, initial encounter
[2016-12-22 19:12] VITALS: BP 103/82; PULSE 87; O2SAT 95
== END 2016-12-22 19:14 | disposition home or self-care (01) ==
LOC: EDBD 17:26 → C.ED 17:27 → C.EDA 19:14
DX: T78.40XA Allergy, unspecified, initial encounter (principal); T63.441A Toxic effect of venom of bees, accidental (unintentional), initial encounter; W57.XXXA Bitten or stung by nonvenomous insect and other nonvenomous arthropods, initial encounter; J45.909 Unspecified asthma, uncomplicated; N18.3 Chronic kidney disease, stage 3 (moderate); J44.9 Chronic obstructive pulmonary disease, unspecified; E11.9 Type 2 diabetes mellitus without complications; E78.5 Hyperlipidemia, unspecified; K21.9 Gastro-esophageal reflux disease without esophagitis; I10 Essential (primary) hypertension; K27.9 Peptic ulcer, site unspecified, unspecified as acute or chronic, without hemorrhage or perforation; E66.9 Obesity, unspecified; Z83.3 Family history of diabetes mellitus; Z82.49 Family history of ischemic heart disease and other diseases of the circulatory system; Z82.0 Family history of epilepsy and other diseases of the nervous system; Z82.3 Family history of stroke; Z87.891 Personal history of nicotine dependence; Z79.4 Long term (current) use of insulin

== ENCOUNTER → 2016-12-24 | Outpatient (CLI) | payer OTHER ==
[~2016-12-24] MED LIST changes: -AMITIZIA PO; -AMITRIPTYLINE PO; +AMT24 PO; +BENZ100C84 PO; +CLR10 PO; -DOMPERIDONE PO; +EPP3/2 IM; -FERR1TAB9 PO; +LATA0.009 OP; -LORA10TA5 PO; +MOME200A INH; -PERPHENAZINE PO; +PRED20TA2 PO; +PREG75CA PO; +RANI150T3 PO; -RST/30 PO; +TEMA30CA4 PO; -TRMO115 TOP; -[UNRECOGNIZED DRUG - OTHER] PO
--- NOTE | 2016-12-24 14:24 | DIAGNOSTIC IMAGING REPORT ---
VIDEO SWALLOW HISTORY: SWALLOWING DYSFUNCTION TECHNIQUE: Video fluoroscopic evaluation of swallowing was performed in the AP and lateral projections by the speech pathology staff. The patient is fed nectar-thick and thin liquid barium, a barium coated wafer, and barium pudding. FLUOROSCOPY TIME: 1.4 minutes. A cine loop submitted. COMPARISON STUDY: None. FINDINGS: There is normal hyoid excursion and epiglottic deflection. No significant penetration or aspiration identified. Swallowing function is within normal limits. IMPRESSION: 1. No aspiration identified. 2. Please see the speech pathologist report for detailed findings and recommendations. Electronically signed by: Cal Gu M.D. 12/24/2016 2:22 PM Dictated Date/Time: 12/24/2016 2:21 PM
== END | disposition home or self-care (01) ==
LOC: C.RAD 13:22
PROVIDERS: ATTEND Family Medicine
DX: R13.10 Dysphagia, unspecified (principal)

== ENCOUNTER → 2016-12-24 | Outpatient (CLI) | payer OTHER ==
--- NOTE | 2016-12-24 14:48 | DIAGNOSTIC IMAGING REPORT ---
DOUBLE CONTRAST UPPER GI SERIES CLINICAL HISTORY: Hiatal hernia. Generalized abdominal pain. Dysphagia and cough. Constipation. COMPARISON STUDY: Abdominal CT dated 01/27/2016. Fluoroscopic upper GI assessment dated 08/16/2008. TECHNIQUE: A standard air contrast upper GI series was performed. Spot images of the esophagus and stomach were obtained in multiple obliquities both upright and prone. FINDINGS: The patient swallowed barium without difficulty. The esophagus is structurally normal without evidence of intrinsic or extrinsic mass. The esophageal mucosal pattern is normal. No gastroesophageal reflux was elicited by having the patient perform the Valsalva maneuver. The gastroesophageal junction distends normally. The stomach is normal in configuration and demonstrates normal distensibility. No mass or ulceration is identified. There was no evidence of gastritis. The duodenal bulb and sweep are unremarkable. Fluoroscopy time: 1.3 minutes. Fluoroscopic images: 19 IMPRESSION: Normal fluoroscopic upper GI assessment. Electronically signed by: Ruddy Lee M.D. 12/24/2016 2:46 PM Dictated Date/Time: 12/24/2016 2:45 PM
--- NOTE | 2016-12-24 14:54 | SWALLOWING EVALUATION ---
HISTORY: This 46 year old woman was referred for a video swallow study at [facility] [address] in order to rule out aspiration and identify the safest consistencies for optimal oral intake. The patient is reporting episodes of food and/or liquid getting caught in her throat when she swallows. PMH is significant for: obesity, DMII with gastroparesis, COPD, asthma, GERD, MS, hypertension, migraines, vertigo, insomnia, and depression. She participated in an EGD in last month and was found to have erosive gastropathy. She reports she has an EGD every 6 months due to her "stomach issues". Current diet is regular. PROCEDURE: The patient was seen in the Radiology Department of [facility] [address] for the VFSS. Cursory examination of the oral cavity revealed natural dentition in good condition. Movement of the articulators was wnl. The patient was seated upright on a stool and was viewed in both the Anterior-Posterior (A-P) and Lateral planes. Volitional phonation exercises completed in the A-P plane revealed bilateral vocal fold movement and vocal intensity was judged to be wnl. Vocal quality was raspy in nature. She reports that this comes and goes but feels it has increased since her last EGD in November of this year (last month). In the lateral plane, the patient was given the following boluses: 1 tsp. thin liquid barium x 2, single swallow thin liquid barium self-presented from a cup, serial swallows of thin liquid barium self-presented via straw, 1 tsp. nectar-thick liquid barium, 1 cup sips nectar thick liquid self-presented from the cup, 1 tsp. barium pudding, and 1 tsp. barium pudding. The patient was then repositioned into the A-P plane and given the following boluses: 1 tsp. nectar thick barium liquid and 1 tsp. barium pudding. RESULTS: Oral Stage: Lip closure was adequate as there was no anterior loss. The patient was able to maintain a cohesive liquid bolus upon command without lateral or posterior escape. Mastication and lingual motion for bolus transport were slow. There was retention lining the tongue and palate after the swallow. The initiation of the pharyngeal swallow was delayed, and triggered when the bolus head reached the valleculae. Pharyngeal Stage: Soft palate elevation was complete. Laryngeal elevation revealed complete superior movement of the thyroid cartilage with complete approximation of the arytenoids to the epiglottic base. Anterior hyoid excursion and epiglottic deflection were also complete. Laryngeal vestibular closure was complete. The pharyngeal stripping wave was present and complete. Pharyngeal contraction was also complete. The opening to the pharyngoesophageal segment (PES) was complete with distention and duration of the opening. Tongue base retraction revealed mildly reduced contact of the tongue base to the pharyngeal wall during the swallow. There was trace retention located along the tongue base after the swallow. There was no evidence of laryngeal penetration or aspiration during this study. There were only trace amounts of retention in the pharynx after the swallow was complete as well. A second swallow was effective to clear. Of note, the patient had ongoing coughing throughout the entire study, but this was not due to aspiration. Esophageal stage: There was complete esophageal clearance. SUMMARY/RECOMMENDATIONS: This patient presents with normal constantin-pharyngeal swallowing mechanics. While not noted during this study, she has a PMH of esophageal dysfunction (GERD). The following is recommended: 1. Regular consistency diet. 2. GERD precautions. Fully upright for all p.o. intake and for 30-60 minutes after meals. HOB elevated to 30 degrees at all times to include while asleep. 3. Safe swallow strategies: Rest breaks. Small frequent meals (already completes due to her gastroparesis). 4. Follow up with ENT as appropriate should the patient continue to evidence raspy vocal quality. A summary of the results and recommendations was discussed with the patient immediately following the study with verbal understanding. Thank you for referral of this patient. Please contact me at if any additional information is needed.
== END | disposition home or self-care (01) ==
LOC: C.RAD 13:18
PROVIDERS: ATTEND Nurse Practitioner Family
DX: K44.9 Diaphragmatic hernia without obstruction or gangrene (principal)

== ENCOUNTER 2017-03-04 14:06 | Emergency (ER) | payer OTHER ==
[~2017-03-04] VITALS: Ht 165.1 cm; Wt 145.0 kg
[~2017-03-04 14:06] MED LIST changes: -AMT24 PO; -FERR1TAB62 PO; +FERR325T PO; -MOME200A INH; -PANT40TA2 PO; -PHEN15CA PO; +PHEN1CAP PO; -PREG75CA PO; +PRT/40 PO; -RANI150T3 PO
[2017-03-04 14:07] VITALS: TEMP 36.5; Ht 165.1 cm; Wt 145.0 kg
[2017-03-04] MEDS ORDERED: SODIUM CHLORIDE 0.9% 1000ML 1,000 ML IV STA (14:30)
[2017-03-04] MEDS ORDERED: ONDANSETRON INJ 2 MG/ML 2 ML VIAL IV STA (14:30)
[2017-03-04] MEDS ORDERED: HYDROmorphone INJ 0.5 MG/0.5 ML SYR IV STA (14:30)
--- NOTE | 2017-03-04 14:46 | EMERGENCY ROOM VISIT NOTE ---
History First contact with patient: 14:12 Chief Complaint: ABDOMINAL PAIN Stated Complaint: ABD PAIN-GOING INTO LT SIDE AND BACK History of Present Illness The patient is a 46 year old female with a significant past medical history including CAD, GA with stenting, CKD, COPD, and Type 2 DM, who presents to the Emergency Room with complaints of left flank pain for the past 4 days. She states the pain is sharp and achy, constant, is in the left upper quadrant and flank, radiates down to the pelvis and around to the back, she rates it as 10/ 10. She has associated nausea and vomiting, but states she has been able to keep down food and fluids intermittently. She denies any diarrhea, changes in bowel habits, or blood in her stool. She does note blood in her urine for the past few days, but denies dysuria. She denies any history of kidney stones. She does report a history of ovarian cysts and states this feels similar, but more severe and "the pain from my cysts usually doesn't last this long." She is on oral Dilaudid and a fentanyl patch for chronic pain management, she states she has been taking this as prescribed. She has tried heat to her abdomen without improvement. She reports a partial hysterectomy in which they removed her right ovary, but states they left her left ovary. She denies any headaches, chest pain, shortness of breath, palpitations, severe dizziness or syncope, fevers or chills, rashes. Unrelated to the abdominal pain, patient also mentions that she twisted her right ankle a week ago, and has continued to have some pain in the ankle. She states she wears a chronic brace on her left ankle, but she had to send it away for repairs, so she has not been wearing it. She denies any falls, denies knee or hip pain, and states she has been able to walk on it. She has been applying ice which has helped. She would like to have an x-ray of her ankle "to make sure nothing is broken." Review of Systems A complete 10 point review of systems was reviewed with the patient with pertinent positives and negatives as per history of present illness. All else were negative. Past Medical/Surgical History Medical Problems: (1) Ambulatory dysfunction (2) Asthma, moderate persistent (3) Atypical chest pain (4) Chronic constipation (5) Chronic low back pain (6) CKD (chronic kidney disease) stage 3, GFR 30-59 ml/min (7) COPD (chronic obstructive pulmonary disease) (8) Depression (9) Diabetes mellitus type 2 in obese (10) Diabetic gastroparesis (11) Dyslipidemia (12) GERD (gastroesophageal reflux disease) (13) History of DVT (deep vein thrombosis) (14) History of migraine (15) HTN (hypertension) (16) Insomnia (17) Left facial numbness (18) Multiple sclerosis (19) Obesity (20) Osteoarthritis (21) PUD (peptic ulcer disease) (22) Vertigo Surgical Problems: (1) H/O bilateral breast reduction surgery (2) H/O colonoscopy (3) H/O esophagogastroduodenoscopy (4) H/O exploratory laparotomy (5) History of arthroscopy of knee (6) History of carpal tunnel surgery (7) History of tubal ligation Family History Cancer SISTER Cardiac disorder FATHER MOTHER GRANDFATHER GRANDMOTHER Diabetes mellitus GRANDFATHER GRANDMOTHER FH: cancer FH: heart disease FHx: gallbladder disease FHx: lung disease Hypertension FATHER MOTHER Seizures FATHER Stroke FATHER Social History Smoking Status: Former Smoker Alcohol Use: none Drug Use: none Marital Status: Housing Status: lives with family Occupation Status: unemployed Current/Historical Medications Scheduled Atorvastatin (Atorvastatin Calcium), 40 MG PO HS Budesonide (Inhalation) (Pulmicort), 0.5 MG INH DAILY Carvedilol (Carvedilol), 3.125 MG PO BID Cetirizine (Zyrtec), 10 MG PO QAM Cholecalciferol (Vitamin D), 4,000 INTER.UNIT PO HS Dicyclomine Hcl (Dicyclomine Hcl), 10 MG PO TID Doxycycline Monohydrate (Monodox), 100 MG PO BID Duloxetine HCl (Duloxetine HCl), 30 MG PO HS Fenofibrate (Fenofibrate), 145 MG PO HS Fentanyl (Duragesic), 50 MCG TOP CQ72HR Ferrous Sulfate (Ferrous Sulfate), 325 MG PO BID Fluticasone Propionate (Fluticasone Propionate), 2 SPRAYS OBDULIA DAILY Hydrocortisone 2.5% (Rectal) (Anusol-Hc 2.5%), 1 APPLN TOP BID Indomethacin Ext Rel (Indocin Ext Rel), 75 MG PO DAILY Isosorbide Mononitrate Ext Rel (Imdur Ext Rel), 30 MG PO QAM Latanoprost (Xalatan 0.005% Oph Iris), 1 DROPS OP HS Loratadine (Claritin), 10 MG PO DAILY Losartan Potassium (Cozaar), 100 MG PO QAM Lubiprostone (Amitiza), 1 TAB PO BID Magnesium Oxide (Mag-Ox), 400 MG PO QAM Menthol (Topical Analgesic) (Biofreeze Roll-On), 1 APPLN TOP QID Mometasone Furoate-Formoterol (Dulera 200/5 Mcg), 1 AER INH BID Montelukast Sod (Montelukast Sodium), 10 MG PO HS Pantoprazole (Pantoprazole Sodium), 40 MG PO QAM Phentermine Hcl (Phentermine Hcl), 1 CAP PO QAM Polyethylene Glycol 3350 (Miralax), 17 GM PO DAILY Pregabalin (Lyrica), 75 MG PO BID Probiotic Product (Bacid), 1 TAB PO BID Ranitidine Hcl (Zantac), 300 MG PO BID Sennosides-Docusate Sodium (Senna-S), 3 TABS PO TID Sitagliptin Phosphate (Januvia), 100 MG PO QAM Solifenacin (Vesicare), 10 MG PO QAM Temazepam (Restoril), 30 MG PO HS Scheduled PRN Albuterol Sulfate (Proair Respiclick), 2 PUFFS INH QID PRN for SOB/Wheezing Benzonatate (Tessalon Perles), 100 MG PO TID PRN for Cough Epinephrine (Epinephrine), 0.3 MG IM UD PRN for ALLERGIC REACTION Home O2 Therapy (Oxygen), 2 LITERS NA PRN PRN for Shortness of Breath Hydromorphone Hcl (Dilaudid), 2 MG PO Q6H PRN for Pain Insulin Glargine (Lantus Solostar), 23 UNITS SC HS PRN for Elevated Blood Sugar Ipratropium-Albuterol (Duoneb), 1 TREATMENT NEB Q4H PRN for SOB/Wheezing Nitroglycerin (Nitrostat), 1 TAB SL UD PRN for chest pain Ondansetron Hcl (Zofran), 8 MG PO QID PRN for nausea Promethazine Hcl (Phenergan), 25 MG PO Q6H PRN for Nausea Zolpidem Tartrate (Zolpidem Tartrate), 5 MG PO HS PRN for Sleep Allergies Coded Allergies: Bee Venom (Verified Allergy, Severe, THROAT SWELLS, 03/04/17) Morphine (Verified Allergy, Severe, ANAPHYLAXIS, 03/04/17) Morphine and Related (Verified Allergy, Severe, ANAPHYLAXIS, 03/04/17) Wasp Venom Protein (Verified Allergy, Severe, THROAT SWELLS, 03/04/17) Adhesives (Verified Allergy, Intermediate, RASH, 03/04/17) Celecoxib (Verified Allergy, Intermediate, HIVES, 03/04/17) Codeine (Verified Allergy, Intermediate, HIVES, 03/04/17) Hydrocodone (Verified Allergy, Intermediate, HIVES, 03/04/17) Oxycodone (Verified Allergy, Intermediate, HIVES, 03/04/17) Penicillins (Verified Allergy, Intermediate, HIVES, 03/04/17) Salicylates (Verified Allergy, Intermediate, GI SYMPTOMS, 03/04/17) Tramadol (Verified Allergy, Intermediate, HIVES, 03/04/17) Nortriptyline (Verified Allergy, Unknown, UNKNOWN, 03/04/17) Metoclopramide (Verified Adverse Reaction, Intermediate, HYPERACTIVITY, ) NSAIDs (Verified Adverse Reaction, Intermediate, HIVES, DYSPEPSIA, 03/04/17 ) Celebrex (hives), Valdecoxib (hives), Vioxx (hives), salicylates (dyspepsia) per PCP records Diphenhydramine (Verified Adverse Reaction, Mild, Difficulty urinating, ) Physical Exam Vital Signs Date Time Temp Pulse Resp B/P (MAP) Pulse Ox O2 Delivery O2 Flow Rate FiO2 03/04/17 17:31 81 18 120/79 97 Room Air 03/04/17 15:59 80 20 126/80 96 Room Air 03/04/17 15:05 85 03/04/17 14:07 36.5 81 17 136/79 99 Room Air Physical Exam CONSTITUTIONAL: No acute distress. Well appearing and well nourished. Alert and oriented X 4 with normal affect. HEENT: Normocephalic, atraumatic. Pupils equal, round and reactive to light, EOMI. TMs normal. Pharynx normal. Moist mucus membranes. NECK: Supple, full active range of motion without discomfort. RESPIRATORY: Clear to auscultation bilaterally with no wheezing, crackles, rhonchi or stridor. Equal expansion bilaterally. CARDIOVASCULAR: Regular rate and rhythm with no murmurs, rubs or gallops. Normal peripheral perfusion. No edema. GASTROINTESTINAL: Obese abdomen. Most tender in the left upper quadrant, left flank and left lower quadrant. No rebound tenderness. Positive left CVA tenderness. Soft, nondistended. Hypoactive bowel sounds present in all quadrants. MUSCULOSKELETAL: Full range of motion of all joints without discomfort. The right ankle is maximally tender along the lateral malleolus, no significant swelling, no erythema or ecchymosis, range of motion intact. Pulses and sensation intact. No tenderness in the foot or knee. INTEGUMENTARY: No rash or other significant dermatologic conditions noted. NEUROLOGIC: Cranial nerves II-XII grossly intact. No focal neurologic deficits noted. Medical Decision & Procedures ER Provider Diagnostic Interpretation: RIGHT ANKLE MIN 3 VIEWS ROUTINE CLINICAL HISTORY: 46 years-old Female presenting with twisting injury to right ankle, eval fx Right. TECHNIQUE: Frontal, oblique, and lateral views of the right ankle were obtained. COMPARISON: Correlation made to plain radiographs of the right foot from 08/23/2016. FINDINGS: Ankle mortise intact. Ossification at the inferior aspect of the medial malleolus likely chronic old avulsion fracture. Prominent bone spurs at the posterior and inferior calcaneus consistent with Achilles tendon and plantar fascia enthesophytes, respectively. No significant degenerative change. No acute fracture or subluxation. IMPRESSION: No acute osseous injury of the right ankle. ----- ABD/PELVIS WITHOUT FOR STONE HISTORY: 46 years-old Female Flank pain, eval for stone COMPARISON: CT abdomen and pelvis 01/27/2016 TECHNIQUE: Multiple axial CT images of the abdomen and pelvis were obtained without IV contrast. A dose lowering technique was used consistent with the principals of ALARA. FINDINGS: The lung bases are generally clear. There is only minimal linear subsegmental atelectasis noted. There is no pneumoperitoneum. The imaged inferior cardiac chambers are within normal limits with trace pericardial effusion. Coronary arterial calcifications are partially imaged. The liver, spleen, gallbladder, pancreas and adrenal glands are within normal limits. Slight nodularity of the superior pole left kidney is again seen without discrete mass identified, unchanged from comparison. No renal calculi or hydronephrosis. Uterus, ureters, urinary bladder and adnexa are within normal limits. Phleboliths are seen within the pelvis. The abdominal aorta is normal in course and caliber. There is mild atherosclerotic plaquing near the iliac bifurcation. No bulky adenopathy. There is no bowel obstruction. Focal area of likely remote epiploic appendagitis is seen adjacent to the mid descending colon. There is focal dilation involving the tip of the appendix which measures up to 10 mm transversely with increased attenuation peripherally seen on image 343 of the axial series, nondisplaced seen on comparison study. The rest the appendix appears to be within normal limits. Patient obesity is noted. The bones are intact. Moderate degenerative changes are seen involving the bilateral hips. There is facet arthrosis of the lower lumbar spine. 4 mm anterolisthesis L4 on L5 is likely secondary to associated facet arthropathy. There is a small fat filled umbilical hernia with diastases of 2.0 cm. IMPRESSION: 1. No acute intra-abdominal or intrapelvic abnormality identified, specifically no urolithiasis or obstructive uropathy. 2. Focal dilation of the appendiceal tip measuring up to 1.0 cm with increased attenuation peripherally is nonspecific without associated surrounding inflammatory changes. Attention at follow-up is recommended to exclude appendiceal mass. 3. Moderate arthropathy of the lower lumbar spine. Laboratory Results 03/04/17 15:40 Red Blood Count 3.91, Mean Corpuscular Volume 98.2, Mean Corpuscular Hemoglobin 32.7, Mean Corpuscular Hemoglobin Concent 33.3, Mean Platelet Volume 11.6, Neutrophils (%) (Auto) 57.0, Lymphocytes (%) (Auto) 31.0, Monocytes (%) (Auto) 5.9, Eosinophils (%) (Auto) 5.5, Basophils (%) (Auto) 0.3, Neutrophils # (Auto) 3.40, Lymphocytes # (Auto) 1.85, Monocytes # (Auto) 0.35, Eosinophils # (Auto) 0.33, Basophils # (Auto) 0.02 03/04/17 15:40 Test 03/04/17 14:55 03/04/17 15:40 03/04/17 15:57 Urine Color YELLOW Urine Appearance CLEAR (CLEAR) Urine pH 5.5 (4.5-7.5) Urine Specific [place] 1.018 (1.000-1.030) Urine Protein NEG (NEG) Urine Glucose (UA) NEG (NEG) Urine Ketones NEG (NEG) Urine Occult Blood 3+ (NEG) Urine Nitrite NEG (NEG) Urine Bilirubin NEG (NEG) Urine Urobilinogen NEG (NEG) Urine Leukocyte Esterase TRACE (NEG) Urine WBC (Auto) 1-5 /hpf (0-5) Urine RBC (Auto) 10-30 /hpf (0-4) Urine Hyaline Casts (Auto) 0 /lpf (0-5) Urine Epithelial Cells (Auto) >30 /lpf (0-5) Urine Bacteria (Auto) NEG (NEG) White Blood Count 5.97 K/uL (4.8-10.8) Red Blood Count 3.91 M/uL (4.2-5.4) Hemoglobin 12.8 g/dL (12.0-16.0) Hematocrit 38.4 % (37-47) Mean Corpuscular Volume 98.2 fL (80-100) Mean Corpuscular Hemoglobin 32.7 pg (25-34) Mean Corpuscular Hemoglobin Concent 33.3 g/dl (32-36) Platelet Count 221 K/uL (130-400) Mean Platelet Volume 11.6 fL (7.4-10.4) Neutrophils (%) (Auto) 57.0 % Lymphocytes (%) (Auto) 31.0 % Monocytes (%) (Auto) 5.9 % Eosinophils (%) (Auto) 5.5 % Basophils (%) (Auto) 0.3 % Neutrophils # (Auto) 3.40 K/uL (1.4-6.5) Lymphocytes # (Auto) 1.85 K/uL (1.2-3.4) Monocytes # (Auto) 0.35 K/uL (0.11-0.59) Eosinophils # (Auto) 0.33 K/uL (0-0.5) Basophils # (Auto) 0.02 K/uL (0-0.2) RDW Standard Deviation 45.0 fL (36.4-46.3) RDW Coefficient of Variation 12.6 % (11.5-14.5) Immature Granulocyte % (Auto) 0.3 % Immature Granulocyte # (Auto) 0.02 K/uL (0.00-0.02) Anion Gap 9.0 mmol/L (3-11) Est Creatinine Clear Calc Drug Dose 110.0 ml/min Estimated GFR () 85.9 Estimated GFR (Non- 74.2 BUN/Creatinine Ratio 8.5 (10-20) Calcium Level 8.5 mg/dl (8.5-10.1) Total Bilirubin 0.3 mg/dl (0.2-1) Aspartate Amino Transf (AST/SGOT) 15 U/L (15-37) Alanine Aminotransferase (ALT/SGPT) 26 U/L (12-78) Alkaline Phosphatase 82 U/L (45-117) Total Protein 6.6 gm/dl (6.4-8.2) Albumin 3.0 gm/dl (3.4-5.0) Globulin 3.6 gm/dl (2.5-4.0) Albumin/Globulin Ratio 0.8 (0.9-2) Lipase 91 U/L (73-393) Bedside Lactic Acid Venous 0.82 mmol/L (0.90-1.70) Medications Administered Medications (Trade) Dose Ordered Sig/Stepan Route Start Time Stop Time Status Last Admin Dose Admin Sodium Chloride 1,000 ml @ 999 mls/hr Q1H1M STAT IV 03/04/17 14:30 03/04/17 15:30 DC 03/04/17 15:37 999 MLS/HR Ondansetron HCl (Zofran Inj) 4 mg NOW STAT IV 03/04/17 14:30 03/04/17 14:36 DC 03/04/17 15:36 4 MG Hydromorphone HCl (Dilaudid Inj) 0.5 mg NOW STAT IV 03/04/17 14:30 03/04/17 14:36 DC 03/04/17 15:36 0.5 MG Ketorolac Tromethamine (Toradol Inj) 15 mg NOW STAT IV 03/04/17 17:12 03/04/17 17:14 DC 03/04/17 17:30 15 MG Medical Decision CC: Patient presenting with complaint of left flank pain Interpretation of Labs: No leukocytosis, no anemia, no significant electrolyte abnormalities, normal renal function, normal liver enzymes and lipase, normal lactic acid. Hematuria but no overt UTI, culture pending. Differential Diagnosis: Includes, but not limited to ureteral stone, pyelonephritis, UTI, pancreatitis, diverticulitis, ovarian cyst, abdominal muscle wall strain/sprain, among others. Medication Reconciliation: I attest that I have personally reviewed the patient' s current medication list. Vital signs review: I reviewed the patient's vital signs and interpret them as follows: T: Afebrile; BP: normotensive; HR: Within normal limits; RR: Within normal limits; Pulse Ox: Within normal limits on room air. Blood pressure screening: The patient was found to have normal blood pressure on screening and does not require follow-up for repeat blood pressure check. Summary: Patient was evaluated at bedside, history of physical exam performed. Alert and in no acute distress. Left upper quadrant and left flank diffusely tender to palpation, though exam is limited due to obesity abdomen. Also with left CVA tenderness, and urine dip noted to have hematuria. Orders were placed at bedside for labs, UA, IV fluids, Zofran and Dilaudid, CT abdomen/pelvis without contrast to evaluate for kidney stone or other etiology for left flank pain. X-ray of the right ankle was also ordered to evaluate for possible fracture. Patient discussed with Dr. Ervin, who agrees with my assessment and plan. Labs reviewed as above, no acute abnormalities. Hematuria noted on UA, culture pending. X-ray of the right ankle reveals no acute injury. A Gel ankle splint was provided for temporary use until her special splint is repaired. CT of abdomen and pelvis reviewed, no acute abnormalities noted, specifically no ureteral stone and no ovarian abnormalities noted. There is a new finding compared to previous CT of enlarged appendix that is of unknown significance. I did speak on the phone with the radiologist, Dr. Solorio, who feels this is a nonacute finding and can be followed on an outpatient basis. I did also speak on the phone with Dr. Castro, general surgery, who agrees this is not an acute finding, but would like to follow up with the patient in clinic in 2-3 weeks. Patient was also directed to follow-up with her PCP and retail performance specialist if her hematuria continues. Patient reassessed multiple times throughout ED stay, she remains well appearing , reports improved pain after IV Dilaudid and Toradol. Patient was updated on all results and plan for discharge and follow-up, she verbalized understanding and is agreeable to this plan. Patient discharged home in stable condition and ambulatory. Impression Primary Impression: Left sided abdominal pain Additional Impressions: Epiploic appendagitis Right ankle pain Departure Information Dispostion Home / Self-Care Condition GOOD Referrals Leonid Morgan M.D. (PCP) Claus Castro D.O. Patient Instructions ED Abdominal Pain Unkn Cause, My [facility] Additional Instructions You have been treated in the Emergency Department your Abdominal Pain. Laboratory results and imaging studies have ruled out any emergent causes for your abdominal pain which would warrant admission or surgery. You should continue your prescribed pain medications as directed. You may also take Tylenol 1000 mg every 8 hours as needed for additional pain. Do not take more than 3000 mg in 24 hours. You may apply heat to the area for comfort. Drink plenty of water and stay well hydrated. As with any trip to the Emergency Department, you should follow-up with your Primary Care Provider in the next few days from today's visit. You should also follow up with Dr. Castro, who is a general surgeon that will follow-up the abnormal finding of your appendix. Call his office to schedule an appointment in the next 2-3 weeks. Return to the emergency department if your symptoms persist despite treatment plan outlined above or if the following symptoms occur: Worsening pain, fever/ chills, severe nausea/vomiting, blood in your stool, or any other concerns. Problem Qualifiers Additional Impressions: Right ankle pain Chronicity: unspecified Qualified Codes: M25.571 - Pain in right ankle and joints of right foot
[2017-03-04] MEDS ORDERED: PREG75CA PO (15:13)
[2017-03-04] MEDS ORDERED: AMT24 PO (15:13)
[2017-03-04] MEDS ORDERED: MOME200A INH (15:13)
[2017-03-04 15:15] LABS: URINE APPEARANCE CLEAR (CLEAR); URINE BILIRUBIN NEG (NEG); URINE COLOR YELLOW; URINE EPITHELIAL CELL AUTO >30 /lpf (0-5); URINE NITRITE NEG (NEG); URINE PH 5.5 (4.5-7.5); URINE SPECIFIC GRAVITY 1.018 (1.000-1.030); UROBILINOGEN NEG (NEG); ZZUR CULT IF INDIC CLEAN CATCH NO
[2017-03-04 15:17] LABS: MANUAL MICROSCOPIC REQUIRED? NO; REVIEW REQ? NO
[2017-03-04 15:58] LABS: BASO % 0.3 %; BASO ABS # 0.02 K/uL (0-0.2); COMPLETE YES; EOS % 5.5 %; HEMATOCRIT 38.4 % (37-47); IG% 0.3 %; LYMPH ABS # 1.85 K/uL (1.2-3.4); MEAN CELL VOLUME 98.2 fL (80-100); MEAN CORPUSCULAR HEMOGLOBIN 32.7 pg (25-34); MEAN CORPUSCULAR HGB CONC 33.3 g/dl (32-36); MEAN PLATELET VOLUME 11.6 fL (7.4-10.4); MONO % 5.9 %; PLATELET COUNT 221 K/uL (130-400); RED BLOOD COUNT 3.91 M/uL (4.2-5.4); WHITE BLOOD COUNT 5.97 K/uL (4.8-10.8)
--- NOTE | 2017-03-04 16:03 | DIAGNOSTIC IMAGING REPORT ---
RIGHT ANKLE MIN 3 VIEWS ROUTINE CLINICAL HISTORY: 46 years-old Female presenting with twisting injury to right ankle, eval fx Right. TECHNIQUE: Frontal, oblique, and lateral views of the right ankle were obtained. COMPARISON: Correlation made to plain radiographs of the right foot from 08/23/2016. FINDINGS: Ankle mortise intact. Ossification at the inferior aspect of the medial malleolus likely chronic old avulsion fracture. Prominent bone spurs at the posterior and inferior calcaneus consistent with Achilles tendon and plantar fascia enthesophytes, respectively. No significant degenerative change. No acute fracture or subluxation. IMPRESSION: No acute osseous injury of the right ankle. Electronically signed by: Eduardo Acosta M.D. 03/04/2017 4:01 PM Dictated Date/Time: 03/04/2017 3:59 PM
[2017-03-04 16:24] LABS: BUN/CREATININE RATIO 8.5 (10-20); CALCIUM 8.5 mg/dl (8.5-10.1); CREATININE 0.92 mg/dl (0.60-1.20); POTASSIUM 3.7 mmol/L (3.5-5.1)
[2017-03-04 16:27] LABS: ALB/GLOB RATIO 0.8 (0.9-2)
--- NOTE | 2017-03-04 16:36 | DIAGNOSTIC IMAGING REPORT ---
ABD/PELVIS WITHOUT FOR STONE HISTORY: 46 years-old Female Flank pain, eval for stone COMPARISON: CT abdomen and pelvis 01/27/2016 TECHNIQUE: Multiple axial CT images of the abdomen and pelvis were obtained without IV contrast. A dose lowering technique was used consistent with the principals of JOSEFINARA. FINDINGS: The lung bases are generally clear. There is only minimal linear subsegmental atelectasis noted. There is no pneumoperitoneum. The imaged inferior cardiac chambers are within normal limits with trace pericardial effusion. Coronary arterial calcifications are partially imaged. The liver, spleen, gallbladder, pancreas and adrenal glands are within normal limits. Slight nodularity of the superior pole left kidney is again seen without discrete mass identified, unchanged from comparison. No renal calculi or hydronephrosis. Uterus, ureters, urinary bladder and adnexa are within normal limits. Phleboliths are seen within the pelvis. The abdominal aorta is normal in course and caliber. There is mild atherosclerotic plaquing near the iliac bifurcation. No bulky adenopathy. There is no bowel obstruction. Focal area of likely remote epiploic meningitis is seen adjacent to the mid descending colon. There is focal dilation involving the tip of the appendix which measures up to 10 mm transversely with increased attenuation peripherally seen on image 343 of the axial series, nondisplaced seen on comparison study. The rest the appendix appears to be within normal limits. Patient obesity is noted. The bones are intact. Moderate degenerative changes are seen involving the bilateral hips. There is facet arthrosis of the lower lumbar spine. 4 mm anterolisthesis L4 on L5 is likely secondary to associated facet arthropathy. There is a small fat filled umbilical hernia with diastases of 2.0 cm. IMPRESSION: 1. No acute intra-abdominal or intrapelvic abnormality identified, specifically no urolithiasis or obstructive uropathy. 2. Focal dilation of the appendiceal tip measuring up to 1.0 cm with increased attenuation peripherally is nonspecific without associated surrounding inflammatory changes. Attention at follow-up is recommended to exclude appendiceal mass. 3. Moderate arthropathy of the lower lumbar spine. The above report was generated using voice recognition software. It may contain grammatical, syntax or spelling errors. Electronically signed by: Monico Solorio M.D. 03/04/2017 4:34 PM Dictated Date/Time: 03/04/2017 4:24 PM
[2017-03-04] MEDS ORDERED: KETOROLAC TROMETHAMINE 30 MG/ML VIAL IV STA (17:12)
[2017-03-04 17:31] VITALS: BP 120/79; PULSE 81; O2SAT 97
== END 2017-03-04 17:50 | disposition home or self-care (01) ==
LOC: C.EDB 14:07 → C.EDC 17:50
DX: M25.571 Pain in right ankle and joints of right foot (principal); J45.909 Unspecified asthma, uncomplicated; N18.3 Chronic kidney disease, stage 3 (moderate); J44.9 Chronic obstructive pulmonary disease, unspecified; E11.9 Type 2 diabetes mellitus without complications; K21.9 Gastro-esophageal reflux disease without esophagitis; E78.5 Hyperlipidemia, unspecified; I10 Essential (primary) hypertension; E66.9 Obesity, unspecified; Z83.3 Family history of diabetes mellitus; Z82.49 Family history of ischemic heart disease and other diseases of the circulatory system; Z82.0 Family history of epilepsy and other diseases of the nervous system; Z82.3 Family history of stroke; Z87.891 Personal history of nicotine dependence

== ENCOUNTER 2017-03-28 12:28 | Emergency (ER) | payer OTHER ==
[~2017-03-28] VITALS: Ht 165.1 cm; Wt 143.4 kg
[~2017-03-28 12:28] MED LIST changes: +AMT24 PO; -EPP3/2 IM; -MOME100A INH; +MOME200A INH; -NRN600 PO; -PRED20TA2 PO; +PREG75CA PO
[2017-03-28 12:34] VITALS: TEMP 36.8; Ht 165.1 cm; Wt 143.4 kg
[2017-03-28 13:25] VITALS: O2SAT 97
--- NOTE | 2017-03-28 14:10 | DIAGNOSTIC IMAGING REPORT ---
SINGLE VIEW CHEST CLINICAL HISTORY: Bilateral chest wall pain. FINDINGS: An AP, portable, upright chest radiograph is compared to study dated 12/13/2016 and correlated with chest CT dated 12/09/2016. The examination is degraded by portable technique, large body habitus, and patient rotation. The heart is top normal for projection. The mediastinal contour is within normal limits and the pulmonary vasculature is noncongested. The lungs and pleural spaces are clear. No pneumothorax is seen. The bony thorax is grossly intact. IMPRESSION: No active disease in the chest. Electronically signed by: Ruddy Lee M.D. 03/28/2017 2:09 PM Dictated Date/Time: 03/28/2017 2:08 PM
[2017-03-28 15:04] LABS: BASO % 0.4 %; BASO ABS # 0.03 K/uL (0-0.2); COMPLETE YES; EOS % 10.1 %; HEMATOCRIT 42.4 % (37-47); IG% 0.1 %; LYMPH % 23.1 %; LYMPH ABS # 1.55 K/uL (1.2-3.4); MEAN CELL VOLUME 97.2 fL (80-100); MEAN CORPUSCULAR HGB CONC 31.8 g/dl (32-36); MEAN PLATELET VOLUME 11.5 fL (7.4-10.4); MONO % 6.4 %; NEUT % 59.9 %; PLATELET COUNT 291 K/uL (130-400); RED BLOOD COUNT 4.36 M/uL (4.2-5.4)
[2017-03-28 15:21] LABS: BUN/CREATININE RATIO 9.4 (10-20); CALCIUM 8.9 mg/dl (8.5-10.1); CREATININE 1.1 mg/dl (0.60-1.20); POTASSIUM 3.7 mmol/L (3.5-5.1)
[2017-03-28 15:24] LABS: ALB/GLOB RATIO 0.8 (0.9-2)
--- NOTE | 2017-03-28 15:33 | DIAGNOSTIC IMAGING REPORT ---
ULTRASOUND RIGHT LOWER EXTREMITY VENOUS CLINICAL HISTORY: Right leg swelling. COMPARISON STUDY: Bilateral lower extremity venous ultrasound dated 06/26/2016. TECHNIQUE: Real-time, grayscale, and color Doppler sonography of the deep veins of the right lower extremity was performed from the inguinal crease to the calf. Compression and augmentation were utilized. FINDINGS: There is no sonographic evidence of deep venous thrombosis identified in the right lower extremity. The common femoral, superficial femoral, and popliteal veins are patent and normally compressible. The greater saphenous vein and the profunda femoris vein at the junction with the common femoral vein are clear. The visualized calf veins are patent. IMPRESSION: There is no sonographic evidence of deep venous thrombosis identified in the right lower extremity. Electronically signed by: Ruddy Lee M.D. 03/28/2017 3:31 PM Dictated Date/Time: 03/28/2017 3:31 PM
[2017-03-28] MEDS ORDERED: ONDANSETRON INJ 2 MG/ML 2 ML VIAL ONE (16:43)
[2017-03-28 16:47] VITALS: BP 133/66; PULSE 76; O2SAT 100
--- NOTE | 2017-03-28 17:14 | EMERGENCY ROOM VISIT NOTE ---
History First contact with patient: 13:23 Chief Complaint: KNEEPAIN Stated Complaint: LUMP BELOW R KNEE, PAIN BOTH SIDES History of Present Illness The patient is a 46 year old female who presents to the Emergency Room with complaints of bilateral rib/abdominal pain and pain in the right knee. The patient states that she has had pain in both sides of her abdomen/ribs for the past few weeks. The pain was primarily left-sided her previous visit, but is now on the right side as well. She rates the discomfort an 8/10. She denies any shortness of breath or chest pain. The patient also reports that she has swelling to the right knee. She contacted her primary care provider and was told to get this checked out last week, but did not. She denies any injury to the knee. She is not a smoker, but does report a history of blood clots in her arms and neck. She was previously taking Coumadin but stopped this several months ago. She denies any recent travel. She denies any urinary symptoms, changes in bowel movements, fevers/chills or recent illness. Review of Systems A complete 10 point review of systems was reviewed with the patient with pertinent positives and negatives as per history of present illness. All else were negative. Past Medical/Surgical History Medical Problems: (1) Ambulatory dysfunction (2) Asthma, moderate persistent (3) Atypical chest pain (4) Chronic constipation (5) Chronic low back pain (6) CKD (chronic kidney disease) stage 3, GFR 30-59 ml/min (7) COPD (chronic obstructive pulmonary disease) (8) Depression (9) Diabetes mellitus type 2 in obese (10) Diabetic gastroparesis (11) Dyslipidemia (12) GERD (gastroesophageal reflux disease) (13) History of DVT (deep vein thrombosis) (14) History of migraine (15) HTN (hypertension) (16) Insomnia (17) Left facial numbness (18) Multiple sclerosis (19) Obesity (20) Osteoarthritis (21) PUD (peptic ulcer disease) (22) Vertigo Surgical Problems: (1) H/O bilateral breast reduction surgery (2) H/O colonoscopy (3) H/O esophagogastroduodenoscopy (4) H/O exploratory laparotomy (5) History of arthroscopy of knee (6) History of carpal tunnel surgery (7) History of tubal ligation Family History Cancer SISTER Cardiac disorder FATHER MOTHER GRANDFATHER GRANDMOTHER Diabetes mellitus GRANDFATHER GRANDMOTHER FH: cancer FH: heart disease FHx: gallbladder disease FHx: lung disease Hypertension FATHER MOTHER Seizures FATHER Stroke FATHER Social History Smoking Status: Former Smoker Alcohol Use: none Drug Use: none Marital Status: Housing Status: lives with family Occupation Status: unemployed Current/Historical Medications Scheduled Atorvastatin (Atorvastatin Calcium), 40 MG PO HS Budesonide (Inhalation) (Pulmicort), 0.5 MG INH DAILY Carvedilol (Carvedilol), 3.125 MG PO BID Cetirizine (Zyrtec), 10 MG PO QAM Cholecalciferol (Vitamin D), 4,000 INTER.UNIT PO HS Dicyclomine Hcl (Dicyclomine Hcl), 10 MG PO TID Doxycycline Monohydrate (Monodox), 100 MG PO BID Duloxetine HCl (Duloxetine HCl), 30 MG PO HS Fenofibrate (Fenofibrate), 145 MG PO HS Fentanyl (Duragesic), 50 MCG TOP [id number] Ferrous Sulfate (Ferrous Sulfate), 325 MG PO BID Fluticasone Propionate (Fluticasone Propionate), 2 SPRAYS OBDULIA DAILY Hydrocortisone 2.5% (Rectal) (Anusol-Hc 2.5%), 1 APPLN TOP BID Indomethacin Ext Rel (Indocin Ext Rel), 75 MG PO DAILY Isosorbide Mononitrate Ext Rel (Imdur Ext Rel), 30 MG PO QAM Latanoprost (Xalatan 0.005% Oph Iris), 1 DROPS OP HS Loratadine (Claritin), 10 MG PO DAILY Losartan Potassium (Cozaar), 100 MG PO QAM Lubiprostone (Amitiza), 1 TAB PO BID Magnesium Oxide (Mag-Ox), 400 MG PO QAM Menthol (Topical Analgesic) (Biofreeze Roll-On), 1 APPLN TOP QID Mometasone Furoate-Formoterol (Dulera 200/5 Mcg), 1 AER INH BID Montelukast Sod (Montelukast Sodium), 10 MG PO HS Pantoprazole (Pantoprazole Sodium), 40 MG PO QAM Phentermine Hcl (Phentermine Hcl), 1 CAP PO QAM Polyethylene Glycol 3350 (Miralax), 17 GM PO DAILY Pregabalin (Lyrica), 75 MG PO BID Probiotic Product (Bacid), 1 TAB PO BID Ranitidine Hcl (Zantac), 300 MG PO BID Sennosides-Docusate Sodium (Senna-S), 3 TABS PO TID Sitagliptin Phosphate (Januvia), 100 MG PO QAM Solifenacin (Vesicare), 10 MG PO QAM Temazepam (Restoril), 30 MG PO HS Scheduled PRN Albuterol Sulfate (Proair Respiclick), 2 PUFFS INH QID PRN for SOB/Wheezing Benzonatate (Tessalon Perles), 100 MG PO TID PRN for Cough Epinephrine (Epinephrine), 0.3 MG IM UD PRN for ALLERGIC REACTION Home O2 Therapy (Oxygen), 2 LITERS NA PRN PRN for Shortness of Breath Hydromorphone Hcl (Dilaudid), 2 MG PO Q6H PRN for Pain Insulin Glargine (Lantus Solostar), 23 UNITS SC HS PRN for Elevated Blood Sugar Ipratropium-Albuterol (Duoneb), 1 TREATMENT NEB Q4H PRN for SOB/Wheezing Nitroglycerin (Nitrostat), 1 TAB SL UD PRN for chest pain Ondansetron Hcl (Zofran), 8 MG PO QID PRN for nausea Promethazine Hcl (Phenergan), 25 MG PO Q6H PRN for Nausea Zolpidem Tartrate (Zolpidem Tartrate), 5 MG PO HS PRN for Sleep Physical Exam Vital Signs Date Time Temp Pulse Resp B/P (MAP) Pulse Ox O2 Delivery O2 Flow Rate FiO2 03/28/17 16:47 76 18 133/66 100 Room Air 03/28/17 14:57 81 16 157/88 100 Room Air 03/28/17 13:25 97 Room Air 03/28/17 13:18 79 03/28/17 12:34 36.8 81 18 143/87 99 Room Air Physical Exam VITALS: Vitals are noted on the nurse's note and reviewed by myself. Vital signs stable. GENERAL: This is a 46-year-old obese female, watching television, in no acute distress, well-developed well-nourished. EYES: Pupils equal round and reactive to light and accommodation. MOUTH: Mucous membranes moist. NECK: Supple without nuchal rigidity. No lymphadenopathy. HEART: Regular rate and rhythm without murmurs gallops or rubs. LUNGS: Clear to auscultation bilaterally without wheezes, rales or rhonchi. ABDOMEN: Positive bowel sounds x 4. Soft, mild vague tenderness in the left upper quadrant and right upper quadrant. No guarding or rebound tenderness. MUSCULOSKELETAL: No significant swelling of the right leg. No erythema, warmth or palpable cord. NEURO: Patient was alert and oriented to person place and time. Medical Decision & Procedures ER Provider Diagnostic Interpretation: SINGLE VIEW CHEST FINDINGS: An AP, portable, upright chest radiograph is compared to study dated 12/13/2016 and correlated with chest CT dated 12/09/2016. The examination is degraded by portable technique, large body habitus, and patient rotation. The heart is top normal for projection. The mediastinal contour is within normal limits and the pulmonary vasculature is noncongested. The lungs and pleural spaces are clear. No pneumothorax is seen. The bony thorax is grossly intact. IMPRESSION: No active disease in the chest. ULTRASOUND RIGHT LOWER EXTREMITY VENOUS FINDINGS: There is no sonographic evidence of deep venous thrombosis identified in the right lower extremity. The common femoral, superficial femoral, and popliteal veins are patent and normally compressible. The greater saphenous vein and the profunda femoris vein at the junction with the common femoral vein are clear. The visualized calf veins are patent. IMPRESSION: There is no sonographic evidence of deep venous thrombosis identified in the right lower extremity. Laboratory Results 03/28/17 14:45 Red Blood Count 4.36, Mean Corpuscular Volume 97.2, Mean Corpuscular Hemoglobin 31.0, Mean Corpuscular Hemoglobin Concent 31.8, Mean Platelet Volume 11.5, Neutrophils (%) (Auto) 59.9, Lymphocytes (%) (Auto) 23.1, Monocytes (%) (Auto) 6.4, Eosinophils (%) (Auto) 10.1, Basophils (%) (Auto) 0.4, Neutrophils # (Auto ) 4.00, Lymphocytes # (Auto) 1.55, Monocytes # (Auto) 0.43, Eosinophils # (Auto ) 0.68, Basophils # (Auto) 0.03 03/28/17 14:45 Test 03/28/17 14:45 White Blood Count 6.70 K/uL (4.8-10.8) Red Blood Count 4.36 M/uL (4.2-5.4) Hemoglobin 13.5 g/dL (12.0-16.0) Hematocrit 42.4 % (37-47) Mean Corpuscular Volume 97.2 fL (80-100) Mean Corpuscular Hemoglobin 31.0 pg (25-34) Mean Corpuscular Hemoglobin Concent 31.8 g/dl (32-36) Platelet Count 291 K/uL (130-400) Mean Platelet Volume 11.5 fL (7.4-10.4) Neutrophils (%) (Auto) 59.9 % Lymphocytes (%) (Auto) 23.1 % Monocytes (%) (Auto) 6.4 % Eosinophils (%) (Auto) 10.1 % Basophils (%) (Auto) 0.4 % Neutrophils # (Auto) 4.00 K/uL (1.4-6.5) Lymphocytes # (Auto) 1.55 K/uL (1.2-3.4) Monocytes # (Auto) 0.43 K/uL (0.11-0.59) Eosinophils # (Auto) 0.68 K/uL (0-0.5) Basophils # (Auto) 0.03 K/uL (0-0.2) RDW Standard Deviation 44.3 fL (36.4-46.3) RDW Coefficient of Variation 12.5 % (11.5-14.5) Immature Granulocyte % (Auto) 0.1 % Immature Granulocyte # (Auto) 0.01 K/uL (0.00-0.02) D-Dimer 490 ug/L FEU (0-500) Anion Gap 4.0 mmol/L (3-11) Est Creatinine Clear Calc Drug Dose 91.4 ml/min Estimated GFR () 69.2 Estimated GFR (Non- 59.7 BUN/Creatinine Ratio 9.4 (10-20) Calcium Level 8.9 mg/dl (8.5-10.1) Total Bilirubin 0.3 mg/dl (0.2-1) Aspartate Amino Transf (AST/SGOT) 17 U/L (15-37) Alanine Aminotransferase (ALT/SGPT) 24 U/L (12-78) Alkaline Phosphatase 88 U/L (45-117) Total Protein 7.5 gm/dl (6.4-8.2) Albumin 3.3 gm/dl (3.4-5.0) Globulin 4.2 gm/dl (2.5-4.0) Albumin/Globulin Ratio 0.8 (0.9-2) Lipase 125 U/L (73-393) Medications Administered Medications (Trade) Dose Ordered Sig/Stepan Route Start Time Stop Time Status Last Admin Dose Admin Ondansetron HCl (Zofran Inj) 4 mg STK-MED ONCE .ROUTE 03/28/17 16:43 03/28/17 16:44 DC 03/28/17 16:43 4 MG ECG Rate (beats per minute): 71 Rhythm: normal sinus Findings: no acute ischemic change, no ectopy Change: no significant change ED Course The patient was evaluated as above. Labs were drawn and IV access was obtained. Imaging studies were performed and read by radiology as above. I was informed by nursing staff that the patient was complaining of nausea. She was given 4 mg Zofran IV. Patient was reevaluated and findings were discussed. The patient became upset that I did not have an answer for her symptoms and ripped out her IV site. Discharge instructions were reviewed with the patient. She was discharged home in good condition. Medical Decision Differential diagnosis includes cholecystitis, pancreatitis, colitis, gastroenteritis, musculoskeletal pain, pulmonary embolism, DVT, among others. The patient is a 46-year-old female who presents today complaining of bilateral abdominal/rib pain and right leg swelling. The pain is difficult to localize on exam. There is no focal tenderness. Labs revealed no leukocytosis, anemia or concerning electrolyte abnormalities. Glucose is elevated consistent with patient's history of diabetes. D-dimer was not elevated. Chest x-ray was unremarkable. Ultrasound of the leg showed no evidence of DVT. The patient had a visit within the past month regarding her abdominal pain. She had a CT scan at that time which was negative. She has not followed up with her primary care provider or anyone else regarding her abdominal pain. I explained that the patient likely needs more follow-up as an outpatient, but given her lack of leukocytosis or fever, she likely does not require any additional testing today. The patient became upset, worried that she may have an appendicitis or cholecystitis. I again informed her why I do not think this is the case, but she ripped out her IV site and stated that she would like to leave. She was again encouraged to follow-up with her primary care provider or return her if her symptoms worsen. Based on the patient's presentation and work up, I feel the patient is stable for outpatient treatment. The patient was educated to return to the emergency department for any worsening of their current condition or new/concerning symptoms. She will follow up with her PCP. The patient's case was reviewed with Dr. Platt, ED attending physician, who agreed with my assessment and treatment plan. Medication Reconcilliation Current Medication List: was personally reviewed by me Blood Pressure Screening Patient's blood pressure: Elevated blood pressure Blood pressure disposition: Elevated BP felt to be situational Impression Primary Impression: Bilateral upper abdominal pain Additional Impression: Right knee pain Departure Information Dispostion Home / Self-Care Condition GOOD Referrals Leonid Morgan M.D. (PCP) Patient Instructions My [facility] [employer] [facility] Additional Instructions For pain control, you can use the following [id number] medicines (if >12 yo): - Regular strength (325mg/tab) Tylenol (acetaminophen) 2 tabs every 4-6 hours as needed. Do not exceed 12 tablets in a 24 hour period. Avoid taking more than 4 grams (4000 mg) of Tylenol per day. This includes any other sources of acetaminophen you may take on a regular basis. - Regular strength (200 mg/tab) Advil (ibuprofen) 1-2 tabs every 4-6 hours as needed. Do not exceed a dose of 3200 mg per day. Follow-up with your primary care provider this week. Return to the emergency department with any worsening or new/concerning symptoms. Problem Qualifiers
== END 2017-03-28 17:41 | disposition home or self-care (01) ==
LOC: C.EDB 12:30 → C.EDC 17:41
DX: R07.81 Pleurodynia (principal); R10.11 Right upper quadrant pain; R10.12 Left upper quadrant pain; R10.84 Generalized abdominal pain; M25.561 Pain in right knee; J45.909 Unspecified asthma, uncomplicated; K59.00 Constipation, unspecified; M54.5 Low back pain; G89.29 Other chronic pain; I12.9 Hypertensive chronic kidney disease with stage 1 through stage 4 chronic kidney disease, or unspecified chronic kidney disease; N18.3 Chronic kidney disease, stage 3 (moderate); E11.22 Type 2 diabetes mellitus with diabetic chronic kidney disease; J44.9 Chronic obstructive pulmonary disease, unspecified; F32.9 Major depressive disorder, single episode, unspecified; E11.69 Type 2 diabetes mellitus with other specified complication; E11.43 Type 2 diabetes mellitus with diabetic autonomic (poly)neuropathy; E78.5 Hyperlipidemia, unspecified; K21.9 Gastro-esophageal reflux disease without esophagitis; G47.00 Insomnia, unspecified; G35 Multiple sclerosis; E66.9 Obesity, unspecified; M19.90 Unspecified osteoarthritis, unspecified site; K27.9 Peptic ulcer, site unspecified, unspecified as acute or chronic, without hemorrhage or perforation; R42 Dizziness and giddiness; Z86.718 Personal history of other venous thrombosis and embolism; Z98.51 Tubal ligation status; Z87.891 Personal history of nicotine dependence; Z83.3 Family history of diabetes mellitus; Z82.49 Family history of ischemic heart disease and other diseases of the circulatory system; Z82.0 Family history of epilepsy and other diseases of the nervous system; Z82.3 Family history of stroke

== ENCOUNTER 2017-08-10 14:50 | Emergency (ER) | payer OTHER ==
[~2017-08-10] VITALS: Ht 162.6 cm; Wt 147.0 kg
[~2017-08-10 14:50] MED LIST changes: -AMT24 PO; -CHOL20009 PO; -CRG3125 PO; -DICY10CA12 PO; -EPIN1INJ37 IM; -FERR325T PO; -FLNIN/ NAE; -INDO75CA PO; -INSDGIPEN SC; -ISOS30TA35 PO; -LOSA100T65 PO; -LPT40 PO; -MAGN400T5 PO; -MOME200A INH; +PHEN15CA PO; -PHEN1CAP PO; -PRT/40 PO; -RANI300T PO; -SNG10 PO; -TRC145 PO
[2017-08-10 15:03] VITALS: TEMP 36.7; Ht 162.6 cm; Wt 147.0 kg
[2017-08-10] MEDS ORDERED: AMT24 PO (15:13)
[2017-08-10] MEDS ORDERED: MOME200A INH (15:13)
[2017-08-10] MEDS ORDERED: DICY10CA12 PO (15:17)
--- NOTE | 2017-08-10 15:19 | EMERGENCY ROOM VISIT NOTE ---
History First contact with patient: 15:08 Chief Complaint: INFECTION Stated Complaint: L FOOT INFECTED FROM TWO HOLES IN BOTTOM History of Present Illness The patient is a 46 year old female who presents to the Emergency Room via private vehicle referred by [facility] on-call doctor with complaints of "left foot infected from 2 holes in bottom". The patient states that 3 weeks ago she was walking and with her left foot she accidentally stepped upon an electrical plug for a cell phone. She states that she has had increasing pain since that time. She is diabetic. She states that she saw her family doctor/physician human resource assistant who recommended doxycycline. She has been battling with the insurance company attempting to get this approved/per authorized however has not been able to do so. When she then called the on-call [facility] doctor yesterday who recommended she come here over concern for osteomyelitis. She states they recommend IV antibiotics, and an antibiotic for her to go home with. She notes her tetanus is up-to-date. She notes that she has been ill lately, but is not sure she's had fevers or chills. Review of Systems A complete 10-point Review of Systems was discussed with the patient, with pertinent positives and negatives listed in the History of Present Illness. All remaining Review of Systems questions can be considered negative unless otherwise specified. Past Medical/Surgical History Medical Problems: (1) Ambulatory dysfunction (2) Asthma, moderate persistent (3) Atypical chest pain (4) Chronic constipation (5) Chronic low back pain (6) CKD (chronic kidney disease) stage 3, GFR 30-59 ml/min (7) COPD (chronic obstructive pulmonary disease) (8) Depression (9) Diabetes mellitus type 2 in obese (10) Diabetic gastroparesis (11) Dyslipidemia (12) GERD (gastroesophageal reflux disease) (13) History of DVT (deep vein thrombosis) (14) History of migraine (15) HTN (hypertension) (16) Insomnia (17) Left facial numbness (18) Multiple sclerosis (19) Obesity (20) Osteoarthritis (21) PUD (peptic ulcer disease) (22) Vertigo Surgical Problems: (1) H/O bilateral breast reduction surgery (2) H/O colonoscopy (3) H/O esophagogastroduodenoscopy (4) H/O exploratory laparotomy (5) History of arthroscopy of knee (6) History of carpal tunnel surgery (7) History of tubal ligation Family History Cancer SISTER Cardiac disorder FATHER MOTHER GRANDFATHER GRANDMOTHER Diabetes mellitus GRANDFATHER GRANDMOTHER FH: cancer FH: heart disease FHx: gallbladder disease FHx: lung disease Hypertension FATHER MOTHER Seizures FATHER Stroke FATHER Social History Smoking Status: Former Smoker Alcohol Use: none Drug Use: none Marital Status: Housing Status: lives with family Occupation Status: unemployed Current/Historical Medications Scheduled Atorvastatin (Atorvastatin Calcium), 40 MG PO HS Budesonide (Inhalation) (Pulmicort Respules 0.5MG/2ML), 2 ML NEB DAILY Carvedilol (Carvedilol), 3.125 MG PO BID Cetirizine HCl (Ra Allergy Relief), 10 MG PO QAM Cholecalciferol (Vitamin D), 4,000 INTER.UNIT PO HS Dicyclomine Hcl (Dicyclomine Hcl), 10 MG PO TID Doxycycline Monohydrate (Monodox), 100 MG PO BID Duloxetine HCl (Duloxetine HCl), 60 MG PO HS Fenofibrate (Fenofibrate), 145 MG PO HS Ferrous Sulfate (Ferrous Sulfate), 325 MG PO BID Fluticasone Propionate (Fluticasone Propionate), 2 SPRAYS OBDULIA DAILY Indomethacin Ext Rel (Indocin Ext Rel), 75 MG PO DAILY Isosorbide Mononitrate Ext Rel (Imdur Ext Rel), 30 MG PO QAM Latanoprost (Latanoprost), 1 DROP OPB HS Loratadine (Claritin), 10 MG PO DAILY Losartan Potassium (Cozaar), 100 MG PO QAM Lubiprostone (Amitiza), 24 MCG PO BIDM Magnesium Oxide (Mag-Ox), 400 MG PO QAM Menthol (Topical Analgesic) (Biofreeze Roll-On), 1 APPLN TOP QID Mometasone Furoate-Formoterol (Dulera 200/5 Mcg), 2 PUFFS INH BID Montelukast Sod (Montelukast Sodium), 10 MG PO HS Pantoprazole (Pantoprazole Sodium), 40 MG PO QAM Phentermine Hcl (Phentermine Hcl), 15 MG PO QAM Polyethylene (Polyethylene Glycol 3350), 17 GM PO DAILY Probiotic Product (Bacid), 1 TAB PO BID Ranitidine Hcl (Zantac), 300 MG PO BID Sennosides-Docusate Sodium (Senna-S), 3 TABS PO TID Sulfa/Trimethoprim (Bactrim Ds 800MG/160MG), 1 TAB PO BID Temazepam (Restoril), 30 MG PO HS Tizanidine Hcl (Zanaflex), 1 MG PO BID Scheduled PRN Albuterol Hfa (Ventolin Hfa), 2 PUFFS INH QID PRN for SOB/Wheezing Albuterol Sulf (Albuterol Sulfate), 1 VIAL NEB Q6H PRN for SOB/Wheezing Epinephrine (Epinephrine), 0.3 MG IM UD PRN for ALLERGIC REACTION Home O2 Therapy (Oxygen), 2 LITERS NA UD PRN for Shortness of Breath Hydromorphone Hcl (Hydromorphone Hcl), 2 MG PO Q6H PRN for Pain Insulin Glargine (Lantus Solostar), 25 UNITS SC HS PRN for Elevated Blood Sugar Lactulose (Chronulac), 15 ML PO BID PRN for Constipation Nitroglycerin (Nitrostat), 0.4 MG SL UD PRN for Chest Pain Ondansetron Odt (Zofran Odt), 8 MG PO DAILY PRN for Nausea or Vomiting Promethazine HCl (Promethazine HCl), 25 MG PO Q6H PRN for Nausea or Vomiting Physical Exam Vital Signs Date Time Temp Pulse Resp B/P (MAP) Pulse Ox O2 Delivery O2 Flow Rate FiO2 08/10/17 17:01 80 18 153/108 96 Room Air 08/10/17 15:03 36.7 93 20 158/87 97 Room Air Physical Exam VITAL SIGNS - Vital signs and nursing notes were reviewed. Stable. GENERAL - 46-year-old female appearing her stated age who is in no acute distress. Communicates well with provider and answers questions appropriately. SKIN - Without rashes. There are 2 small healing puncture wounds on the plantar aspect of the midfoot of the patient's left foot. There is no erythema , edema or red streaking. There is no drainage or evidence of pus. EXTREMITIES - No clubbing or peripheral cyanosis. No pretibial edema present. + 5/5 strength noted in UE/LE bilaterally. NEUROLOGIC - Cranial nerves II through XII grossly intact. Sensory intact to light touch throughout. Medical Decision & Procedures ER Provider Diagnostic Interpretation: L FOOT MIN 3 VIEWS ROUTINE CLINICAL HISTORY: L foot pain on bottom s/p stepping on electrical plug pain COMPARISON: None. DISCUSSION: Heel spur. Ossification Achilles tendon insertion. No well-defined: Acute bony abnormality. Small old avulsion from the medial malleolus. No acute bony abnormality. There is no evidence for soft tissue swelling. IMPRESSION: No acute bony abnormality. Moderate degenerative change. Heel spur. The above report was generated using voice recognition software. It may contain grammatical, syntax or spelling errors. Electronically signed by: Ramon Brambila M.D. 08/10/2017 4:08 PM Dictated Date/Time: 08/10/2017 4:07 PM Laboratory Results 08/10/17 16:00 Red Blood Count 3.81, Mean Corpuscular Volume 96.9, Mean Corpuscular Hemoglobin 32.5, Mean Corpuscular Hemoglobin Concent 33.6, Mean Platelet Volume 10.9, Neutrophils (%) (Auto) 61.6, Lymphocytes (%) (Auto) 28.9, Monocytes (%) (Auto) 5.4, Eosinophils (%) (Auto) 3.6, Basophils (%) (Auto) 0.2, Neutrophils # (Auto) 3.91, Lymphocytes # (Auto) 1.83, Monocytes # (Auto) 0.34, Eosinophils # (Auto) 0.23, Basophils # (Auto) 0.01 08/10/17 16:00 Test 08/10/17 16:00 White Blood Count 6.34 K/uL (4.8-10.8) Red Blood Count 3.81 M/uL (4.2-5.4) Hemoglobin 12.4 g/dL (12.0-16.0) Hematocrit 36.9 % (37-47) Mean Corpuscular Volume 96.9 fL (80-100) Mean Corpuscular Hemoglobin 32.5 pg (25-34) Mean Corpuscular Hemoglobin Concent 33.6 g/dl (32-36) Platelet Count 321 K/uL (130-400) Mean Platelet Volume 10.9 fL (7.4-10.4) Neutrophils (%) (Auto) 61.6 % Lymphocytes (%) (Auto) 28.9 % Monocytes (%) (Auto) 5.4 % Eosinophils (%) (Auto) 3.6 % Basophils (%) (Auto) 0.2 % Neutrophils # (Auto) 3.91 K/uL (1.4-6.5) Lymphocytes # (Auto) 1.83 K/uL (1.2-3.4) Monocytes # (Auto) 0.34 K/uL (0.11-0.59) Eosinophils # (Auto) 0.23 K/uL (0-0.5) Basophils # (Auto) 0.01 K/uL (0-0.2) RDW Standard Deviation 43.1 fL (36.4-46.3) RDW Coefficient of Variation 12.2 % (11.5-14.5) Immature Granulocyte % (Auto) 0.3 % Immature Granulocyte # (Auto) 0.02 K/uL (0.00-0.02) Erythrocyte Sedimentation Rate 16 mm/hr (0-21) Anion Gap 4.0 mmol/L (3-11) Est Creatinine Clear Calc Drug Dose 90.6 ml/min Estimated GFR () 68.5 Estimated GFR (Non- 59.1 BUN/Creatinine Ratio 8.3 (10-20) Calcium Level 8.4 mg/dl (8.5-10.1) C-Reactive Protein 0.48 mg/dl (0-0.29) Chemistry Specimen Hemolysis Medications Administered Medications (Trade) Dose Ordered Sig/Stepan Route Start Time Stop Time Status Last Admin Dose Admin Clindamycin Phosphate (Cleocin 600mg/ 54ml D5W) 600 mg ONE STAT IV 08/10/17 16:43 08/10/17 16:45 DC 08/10/17 16:43 600 MG Medical Decision Patient was seen and evaluated as above. She presents to us today with pain overlying the plantar fascia of her left foot. She is diabetic. She is concerned that she may have osteomyelitis or a deep skin infection of her left foot. On my exam there is no evidence of infection, rather there is a well- healed wound. There is tenderness overlying the entire plantar fascia. X-ray does not reveal any evidence of osteo-myelitis. White blood cell count normal. Because of the risk of potential underlying infection I will treat with clindamycin 600 IV 1 as a thorough review of her previous visits reveal she has had this without difficulty. This was secondary to her numerous allergies listed. I will also change to Bactrim for treatment of this to provide MRSA coverage as the patient does note difficulty obtaining doxycycline through her insurance via prior authorization. This is also on the [employer] $4 list and she requested. She has a penicillin allergy. She was educated upon benefit versus risk of clindamycin to include but not limited to possibly alexy C. difficile. She is also to follow with her family doctor for further evaluation and management and her established orthopedic surgeon Dr. Matson. She was educated upon management, educated upon worrisome symptoms which to return, had questions and provided discharge, and was discharged home in good condition. In evaluation treatment this patient the following differential diagnoses were entertained: Infection, plantar fasciitis, soft tissue contusion, osteomyelitis , among others. Impression Primary Impression: Pain of left foot Departure Information Dispostion Home / Self-Care Condition GOOD Prescriptions Sulfa/Trimethoprim (Bactrim Ds 800MG/160MG) Tab 1 TAB PO BID for 10 Days, #20 TAB Prov: Matt Ramos PA-C 08/10/17 Referrals Leonid Morgan M.D. (PCP) Patient Instructions My [facility] Additional Instructions You were seen in the emergency Department for pain on the bottom of your left foot. At this time I suspect are likely experiencing inflammation of the plantar fascia on the bottom of the foot. There is no evidence of infection on her blood work, my exam, or the x-ray. At this time I do recommend however because of the concern to take the Bactrim one tablet every 12 hours for 10 days. This to help prevent infection. As we discussed we have to look at the benefits versus risk of antibiotics with your current medication list, as well as side effects. Because of your listed allergies, other medications I believe the Bactrim at this time will be best. Please be careful as Bactrim can increase your potassium levels. I do recommend having a repeat of your potassium with her family doctor in the near future. If you develop a reaction please discontinue and return. I recommend following up with your family doctor as well as Dr. Matson for the foot. Please return with any new/concerning symptoms.
--- NOTE | 2017-08-10 16:09 | DIAGNOSTIC IMAGING REPORT ---
L FOOT MIN 3 VIEWS ROUTINE CLINICAL HISTORY: L foot pain on bottom s/p stepping on electrical plug pain COMPARISON: None. DISCUSSION: Heel spur. Ossification Achilles tendon insertion. No well-defined: Acute bony abnormality. Small old avulsion from the medial malleolus. No acute bony abnormality. There is no evidence for soft tissue swelling. IMPRESSION: No acute bony abnormality. Moderate degenerative change. Heel spur. The above report was generated using voice recognition software. It may contain grammatical, syntax or spelling errors. Electronically signed by: Ramon Brambila M.D. 08/10/2017 4:08 PM Dictated Date/Time: 08/10/2017 4:07 PM
[2017-08-10 16:19] LABS: BASO % 0.2 %; BASO ABS # 0.01 K/uL (0-0.2); EOS % 3.6 %; EOS ABS # 0.23 K/uL (0-0.5); HEMATOCRIT 36.9 % (37-47); HEMOGLOBIN 12.4 g/dL (12.0-16.0); IG# 0.02 K/uL (0.00-0.02); LYMPH % 28.9 %; LYMPH ABS # 1.83 K/uL (1.2-3.4); MEAN CELL VOLUME 96.9 fL (80-100); MEAN CORPUSCULAR HEMOGLOBIN 32.5 pg (25-34); MEAN CORPUSCULAR HGB CONC 33.6 g/dl (32-36); MEAN PLATELET VOLUME 10.9 fL (7.4-10.4); MONO % 5.4 %; MONO ABS # 0.34 K/uL (0.11-0.59); NEUT % 61.6 %; NEUT ABS # 3.91 K/uL (1.4-6.5); PLATELET COUNT 321 K/uL (130-400); RED CELL DISTRIBUTION WIDTH CV 12.2 % (11.5-14.5); RED CELL DISTRIBUTION WIDTH SD 43.1 fL (36.4-46.3); WHITE BLOOD COUNT 6.34 K/uL (4.8-10.8)
[2017-08-10] MEDS ORDERED: TIZA2TAB3 PO (16:25)
[2017-08-10] MEDS ORDERED: XLTOPS OPB (16:25)
[2017-08-10] MEDS ORDERED: MRLP527 PO (16:25)
[2017-08-10] MEDS ORDERED: ALBINS NEB (16:25)
[2017-08-10] MEDS ORDERED: ONDA8TAB13 PO (16:25)
[2017-08-10] MEDS ORDERED: LCTS240 PO (16:25)
[2017-08-10] MEDS ORDERED: PLMINS NEB (16:25)
[2017-08-10] MEDS ORDERED: CYM60 PO (16:25)
[2017-08-10] MEDS ORDERED: RST/30 PO (16:35)
[2017-08-10] MEDS ORDERED: PROM25TA16 PO (16:35)
[2017-08-10] MEDS ORDERED: CETI-54 PO (16:35)
[2017-08-10] MEDS ORDERED: VNTHFA/IN INH (16:35)
[2017-08-10] MEDS ORDERED: LORA10TA6 PO (16:35)
[2017-08-10] MEDS ORDERED: HYDR2TAB2 PO (16:35)
[2017-08-10] MEDS ORDERED: CLINDAMYCIN 600 MG/54 ML D5W IV STA (16:43)
[2017-08-10] MEDS ORDERED: SULF800T23 PO (16:49)
[2017-08-10 16:56] LABS: CALCIUM 8.4 mg/dl (8.5-10.1); CREATININE 1.11 mg/dl (0.60-1.20); POTASSIUM 3.6 mmol/L (3.5-5.1)
[2017-08-10 17:01] VITALS: BP 153/108; PULSE 80; O2SAT 96
[2017-08-10] MEDS ORDERED: INDO75CA PO (18:05)
[2017-08-10] MEDS ORDERED: MAGN400T5 PO (18:09)
[2017-08-10] MEDS ORDERED: ISOS30TA35 PO (18:55)
[2017-08-10] MEDS ORDERED: FERR1TAB62 PO (18:55)
[2017-08-10] MEDS ORDERED: EPIN0.3I14 IM (18:55)
[2017-08-10] MEDS ORDERED: INSDGIPEN SC (18:55)
[2017-08-10] MEDS ORDERED: SNG10 PO (18:55)
[2017-08-10] MEDS ORDERED: PANT40TA2 PO (18:55)
[2017-08-10] MEDS ORDERED: LOSA100T65 PO (18:55)
[2017-08-10] MEDS ORDERED: CRG3125 PO (18:55)
[2017-08-10] MEDS ORDERED: TRC145 PO (18:55)
[2017-08-10] MEDS ORDERED: RANI300T PO (18:55)
[2017-08-10] MEDS ORDERED: FLNIN/ NAE (18:55)
[2017-08-10] MEDS ORDERED: LPT40 PO (18:55)
[2017-08-10] MEDS ORDERED: CHOL20009 PO (22:22)
== END 2017-08-10 17:34 | disposition home or self-care (01) ==
LOC: C.EDB 14:51 → C.EDA 17:34
DX: M79.672 Pain in left foot (principal); J45.40 Moderate persistent asthma, uncomplicated; N18.3 Chronic kidney disease, stage 3 (moderate); J44.9 Chronic obstructive pulmonary disease, unspecified; F32.9 Major depressive disorder, single episode, unspecified; E11.43 Type 2 diabetes mellitus with diabetic autonomic (poly)neuropathy; I12.9 Hypertensive chronic kidney disease with stage 1 through stage 4 chronic kidney disease, or unspecified chronic kidney disease; E66.9 Obesity, unspecified; Z68.43 Body mass index [BMI] 50.0-59.9, adult; E78.1 Pure hyperglyceridemia; Z86.718 Personal history of other venous thrombosis and embolism; K21.9 Gastro-esophageal reflux disease without esophagitis; G35 Multiple sclerosis; M19.90 Unspecified osteoarthritis, unspecified site; I73.9 Peripheral vascular disease, unspecified; Z98.51 Tubal ligation status; Z80.9 Family history of malignant neoplasm, unspecified; Z83.3 Family history of diabetes mellitus; Z82.49 Family history of ischemic heart disease and other diseases of the circulatory system; Z82.0 Family history of epilepsy and other diseases of the nervous system; Z82.3 Family history of stroke; Z87.891 Personal history of nicotine dependence; Z79.899 Other long term (current) drug therapy

== ENCOUNTER 2017-09-17 03:29 | Emergency (ER) | payer OTHER ==
[~2017-09-17] VITALS: Ht 162.6 cm; Wt 143.4 kg
[~2017-09-17 03:29] MED LIST changes: +ALBINS NEB; -ALBU18002 INH; +AMT24 PO; -BENZ100C84 PO; -BUDE0.5S INH; +CETI-54 PO; -CETI10TA84 PO; +CHOL20009 PO; -CLR10 PO; +CRG3125 PO; -CYM30 PO; +CYM60 PO; +DICY10CA12 PO; +EPIN0.3I14 IM; +FERR1TAB62 PO; +FLNIN/ NAE; -FNTTP50 TOP; -HYDR2.5C37 TOP; +HYDR2TAB2 PO; -HYDR4TAB2 PO; +INDO75CA PO; +INSDGIPEN SC; -IPRASOL4 NEB; +ISOS30TA35 PO; -LATA0.009 OP; +LCTS240 PO; +LORA10TA6 PO; +LOSA100T65 PO; +LPT40 PO; +MAGN400T5 PO; +MOME200A INH; +MRLP527 PO; +ONDA8TAB13 PO; -ONDA8TAB6 PO; +PANT40TA2 PO; +PLMINS NEB; -POLY335019 PO; -PREG75CA PO; +PROM25TA16 PO; -PROM25TA9 PO; +RANI300T PO; +RST/30 PO; -SITA100T3 PO; +SNG10 PO; -SOLI10TA2 PO; -TEMA30CA4 PO; +TIZA2TAB3 PO; +TRC145 PO; +VNTHFA/IN INH; +XLTOPS OPB; -ZOLP5TAB6 PO
[2017-09-17 03:45] VITALS: TEMP 36.7; Ht 162.6 cm; Wt 143.4 kg
[2017-09-17 04:00] VITALS: O2SAT 97
[2017-09-17] MEDS ORDERED: SODIUM CHLORIDE 0.9% 1000ML 1,000 ML IV SCH (04:08)
[2017-09-17] MEDS ORDERED: PREG100C PO (04:11)
[2017-09-17] MEDS ORDERED: BENZ100C84 PO (04:14)
[2017-09-17] MEDS ORDERED: HYDRCRE28 PR (04:18)
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
[2017-09-17 04:34] LABS: BASO % 0.3 %; BASO ABS # 0.03 K/uL (0-0.2); EOS % 4.1 %; EOS ABS # 0.36 K/uL (0-0.5); HEMATOCRIT 40.9 % (37-47); HEMOGLOBIN 13.6 g/dL (12.0-16.0); IG# 0.03 K/uL (0.00-0.02); LYMPH % 22.2 %; LYMPH ABS # 1.95 K/uL (1.2-3.4); MEAN CELL VOLUME 98.8 fL (80-100); MEAN CORPUSCULAR HEMOGLOBIN 32.9 pg (25-34); MEAN CORPUSCULAR HGB CONC 33.3 g/dl (32-36); MEAN PLATELET VOLUME 12.4 fL (7.4-10.4); MONO ABS # 0.53 K/uL (0.11-0.59); NEUT % 67.1 %; NEUT ABS # 5.89 K/uL (1.4-6.5); PLATELET COUNT 270 K/uL (130-400); RED CELL DISTRIBUTION WIDTH CV 12.7 % (11.5-14.5); RED CELL DISTRIBUTION WIDTH SD 45.7 fL (36.4-46.3); WHITE BLOOD COUNT 8.79 K/uL (4.8-10.8)
[2017-09-17 04:41] LABS: BLOOD UREA NITROGEN 10 mg/dl (7-18); CALCIUM 8.4 mg/dl (8.5-10.1); CARBON DIOXIDE 27 mmol/L (21-32); CREATININE 1.34 mg/dl (0.60-1.20); GLUCOSE 170 mg/dl (70-99); POTASSIUM 3.9 mmol/L (3.5-5.1); SODIUM 134 mmol/L (136-145)
[2017-09-17 04:46] LABS: CKMB 0.8 ng/ml (0.5-3.6)
[2017-09-17 05:26] VITALS: BP 145/108; PULSE 89; O2SAT 99
--- NOTE | 2017-09-17 06:31 | DIAGNOSTIC IMAGING REPORT ---
CT HEAD WITHOUT CONTRAST (CT) CLINICAL HISTORY: Stroke COMPARISON STUDY: 06/26/2016 TECHNIQUE: Axial CT of the brain is performed from the vertex to the skull base. IV contrast was not administered for this examination. A dose lowering technique was utilized adhering to the principles of ALARA. CT DOSE: 773.57 mGy.cm FINDINGS: No intra or extra-axial mass lesions are visualized. There is no CT evidence of acute cortical infarction. There is no evidence of midline shift. There is no acute hemorrhage. No calvarial fractures are visualized. There are patchy white matter hypodensities likely on a small vessel basis. There is no evidence of pathologic ventricular dilatation. There is no evidence of acute sinusitis IMPRESSION: No acute intracranial findings Electronically signed by: Kumar Perez M.D. 09/17/2017 6:30 AM Dictated Date/Time: 09/17/2017 6:29 AM
== END 2017-09-17 05:27 | disposition home or self-care (01) ==
LOC: EDBD 03:29 → C.EDB 03:30
DX: R56.9 Unspecified convulsions (principal); J45.909 Unspecified asthma, uncomplicated; R07.9 Chest pain, unspecified; N18.3 Chronic kidney disease, stage 3 (moderate); J44.9 Chronic obstructive pulmonary disease, unspecified; F32.9 Major depressive disorder, single episode, unspecified; E11.9 Type 2 diabetes mellitus without complications; E78.5 Hyperlipidemia, unspecified; K21.9 Gastro-esophageal reflux disease without esophagitis; I10 Essential (primary) hypertension; G35 Multiple sclerosis; E66.9 Obesity, unspecified; M19.90 Unspecified osteoarthritis, unspecified site; K27.9 Peptic ulcer, site unspecified, unspecified as acute or chronic, without hemorrhage or perforation; Z83.3 Family history of diabetes mellitus; Z82.49 Family history of ischemic heart disease and other diseases of the circulatory system; Z82.0 Family history of epilepsy and other diseases of the nervous system; Z82.3 Family history of stroke; F17.200 Nicotine dependence, unspecified, uncomplicated

== ENCOUNTER 2017-10-13 14:46 | Emergency (ER) | payer OTHER ==
[~2017-10-13] VITALS: Ht 162.6 cm; Wt 142.0 kg
[~2017-10-13 14:46] MED LIST changes: +BENZ100C84 PO; +HYDRCRE28 PR; -INDO75CA PO; -LORA10TA6 PO; -PHEN15CA PO; +PREG100C PO
[2017-10-13 14:57] VITALS: TEMP 36.4; Ht 162.6 cm; Wt 142.0 kg
[2017-10-13] MEDS ORDERED: TRAMADOL HCL 50 MG TAB PO STA (15:25)
[2017-10-13] MEDS ORDERED: ACETAMINOPHEN 500 MG TAB PO STA (15:29)
--- NOTE | 2017-10-13 15:42 | DIAGNOSTIC IMAGING REPORT ---
L HAND MIN 3 VIEWS ROUTINE CLINICAL HISTORY: 46 years-old Female presenting with L hand pain s/p punching wall. TECHNIQUE: Frontal, oblique, and lateral views of the left hand were obtained. COMPARISON: 01/23/2016. FINDINGS: No acute fracture or malalignment. No advanced degenerative change. No radiographic soft tissue abnormality. IMPRESSION: No acute osseous injury. Electronically signed by: Eduardo Acosta M.D. 10/13/2017 3:41 PM Dictated Date/Time: 10/13/2017 3:40 PM
[2017-10-13] MEDS ORDERED: NITR-5 PO (15:45)
[2017-10-13] MEDS ORDERED: OXYB5TAB PO (15:45)
[2017-10-13] MEDS ORDERED: CYM/30 PO (15:45)
[2017-10-13] MEDS ORDERED: IPRASOL4 INH (15:45)
--- NOTE | 2017-10-13 15:48 | EMERGENCY ROOM VISIT NOTE ---
History First contact with patient: 15:01 Chief Complaint: HAND PAIN/INJURY Stated Complaint: L/HAND HURTS SWOLLEN & BOTH EYES FEEL LIKE INFECTI History of Present Illness The patient is a 46 year old female who presents to the Emergency Room via private vehicle with complaints of "L/hand hurts swollen, and both eyes fell like infected". The patient states that she was having a nightmare in the night , and when she was having a nightmare she punched her wall 8 times with her left hand. She now notes pain in the left hand, specifically along the second digit. She rates the pain as a 9/10. It is throbbing in nature. She has taken nothing so far for the pain. Of additional note, she states that for the past 2 weeks she has been experiencing swelling in her eyes, worse inferiorly and bilaterally. She notes that the mucus and swelling has gone down as well as the pain. She notes pain/irritation on the inferior eyelid at the border of the eye. She states there is sometimes green drainage. She discontinued her contacts for the past 2 weeks to help with the healing process. She notes a history of seasonal allergies but has been taking her medications for such. Review of Systems A complete 6-point Review of Systems was discussed with the patient, with pertinent positives and negatives listed in the History of Present Illness. All remaining Review of Systems questions can be considered negative unless otherwise specified. Past Medical/Surgical History Medical Problems: (1) Ambulatory dysfunction (2) Asthma, moderate persistent (3) Atypical chest pain (4) Chronic constipation (5) Chronic low back pain (6) CKD (chronic kidney disease) stage 3, GFR 30-59 ml/min (7) COPD (chronic obstructive pulmonary disease) (8) Depression (9) Diabetes mellitus type 2 in obese (10) Diabetic gastroparesis (11) Dyslipidemia (12) GERD (gastroesophageal reflux disease) (13) History of DVT (deep vein thrombosis) (14) History of migraine (15) HTN (hypertension) (16) Insomnia (17) Left facial numbness (18) Multiple sclerosis (19) Obesity (20) Osteoarthritis (21) PUD (peptic ulcer disease) (22) Vertigo Surgical Problems: (1) H/O bilateral breast reduction surgery (2) H/O colonoscopy (3) H/O esophagogastroduodenoscopy (4) H/O exploratory laparotomy (5) History of arthroscopy of knee (6) History of carpal tunnel surgery (7) History of tubal ligation Family History Cancer SISTER Cardiac disorder FATHER MOTHER GRANDFATHER GRANDMOTHER Diabetes mellitus GRANDFATHER GRANDMOTHER FH: cancer FH: heart disease FHx: gallbladder disease FHx: lung disease Hypertension FATHER MOTHER Seizures FATHER Stroke FATHER Social History Smoking Status: Former Smoker Alcohol Use: none Drug Use: none Marital Status: Housing Status: lives with family Occupation Status: unemployed Current/Historical Medications Scheduled Atorvastatin (Lipitor), 40 MG PO HS Budesonide (Inhalation) (Pulmicort Respules 0.5MG/2ML), 2 ML NEB DAILY Carvedilol (Carvedilol), 3.125 MG PO BID Cetirizine HCl (Ra Allergy Relief), 10 MG PO QAM Cholecalciferol (Vitamin D), 4,000 INTER.UNIT PO HS Dicyclomine Hcl (Dicyclomine Hcl), 10 MG PO TID Doxycycline Monohydrate (Monodox), 100 MG PO BID Duloxetine HCl (Duloxetine HCl), 60 MG PO HS Duloxetine HCl (Cymbalta), 30 MG PO DAILY Fenofibrate (Fenofibrate), 145 MG PO HS Ferrous Sulfate (Ferrous Sulfate), 325 MG PO BID Fluticasone Propionate (Fluticasone Propionate), 2 SPRAYS OBDULIA DAILY Hydrocortisone (Rectal) (Proctozone-Hc), 1 APPLN [place] BID Isosorbide Mononitrate Ext Rel (Imdur Ext Rel), 30 MG PO QAM Latanoprost (Latanoprost), 1 DROP OPB HS Losartan Potassium (Cozaar), 100 MG PO QAM Lubiprostone (Amitiza), 24 MCG PO BIDM Magnesium Oxide (Mag-Ox), 400 MG PO QAM Menthol (Topical Analgesic) (Biofreeze Roll-On), 1 APPLN TOP QID Mometasone Furoate-Formoterol (Dulera 200/5 Mcg), 2 PUFFS INH BID Montelukast Sod (Montelukast Sodium), 10 MG PO HS Nitrofurantoin Monohyd Macrocr (Macrobid), 100 MG PO BID Oxybutynin Chloride (Oxybutynin Chloride Er), 5 MG PO DAILY Pantoprazole (Pantoprazole Sodium), 40 MG PO QAM Polyethylene (Polyethylene Glycol 3350), 17 GM PO DAILY Pregabalin (Lyrica), 100 MG PO BID Probiotic Product (Bacid), 1 TAB PO BID Ranitidine Hcl (Zantac), 300 MG PO BID Sennosides-Docusate Sodium (Senna-S), 3 TABS PO TID Temazepam (Restoril), 30 MG PO HS Tizanidine Hcl (Zanaflex), 1 MG PO BID Scheduled PRN Albuterol Hfa (Ventolin Hfa), 2 PUFFS INH QID PRN for SOB/Wheezing Benzonatate (Tessalon Perles), 100-200 MG PO TID PRN for Cough Epinephrine (Epinephrine), 0.3 MG IM UD PRN for ALLERGIC REACTION Home O2 Therapy (Oxygen), 2 LITERS NA UD PRN for Shortness of Breath Hydromorphone Hcl (Hydromorphone Hcl), 2 MG PO Q6H PRN for Pain Insulin Glargine (Lantus Solostar), 25 UNITS SC HS PRN for Elevated Blood Sugar Ipratropium-Albuterol (Duoneb), 1 TREATMENT INH Q6H PRN for SOB/Wheezing Lactulose (Chronulac), 15 ML PO BID PRN for Constipation Nitroglycerin (Nitrostat), 0.4 MG SL UD PRN for Chest Pain Ondansetron Odt (Zofran Odt), 8 MG PO DAILY PRN for Nausea or Vomiting Promethazine HCl (Promethazine HCl), 25 MG PO Q6H PRN for Nausea or Vomiting Physical Exam Vital Signs Date Time Temp Pulse Resp B/P (MAP) Pulse Ox O2 Delivery O2 Flow Rate FiO2 10/13/17 16:07 91 20 149/91 97 10/13/17 14:57 36.4 93 20 154/96 96 Room Air Physical Exam VITAL SIGNS - Vital signs and nursing notes were reviewed. Stable. GENERAL - 46-year-old female appearing her stated age who is in no acute distress. Communicates well with provider and answers questions appropriately. SKIN - Without rashes. HEAD - NC/AT. EYES - PERRL with EOMI bilaterally. Sclera anicteric. EARS - No deformities of external structures noted on gross examination bilaterally. No pain elicited with palpation of the tragus bilaterally. External auditory canals without discharge or otorrhea. Tympanic membranes pearly teague without retraction or bulging. No fluid or purulent material visualized behind the TM. Handle of malleus, umbo, cone of light, pars tensa/ flaccid all easily visualized. NOSE - Midline and without cyanosis. No epistaxis or purulent drainage noted. MOUTH/OROPHARYNX - Without perioral cyanosis. EXTREMITIES - No clubbing or peripheral cyanosis. No pretibial edema present. L hand tenderness at the 2nd digit. +5/5 strength noted in UE/LE bilaterally. NEUROLOGIC - Cranial nerves II through XII grossly intact. Sensory intact to light touch throughout. PSYCH - A&O, and cooperates fully with examiner. Pt is very pleasant and interacts well with examiner. Medical Decision & Procedures ER Provider Diagnostic Interpretation: L HAND MIN 3 VIEWS ROUTINE CLINICAL HISTORY: 46 years-old Female presenting with L hand pain s/p punching wall. TECHNIQUE: Frontal, oblique, and lateral views of the left hand were obtained. COMPARISON: 01/23/2016. FINDINGS: No acute fracture or malalignment. No advanced degenerative change. No radiographic soft tissue abnormality. IMPRESSION: No acute osseous injury. Electronically signed by: Eduardo Acosta M.D. 10/13/2017 3:41 PM Dictated Date/Time: 10/13/2017 3:40 PM Medications Administered Medications (Trade) Dose Ordered Sig/Stepan Route Start Time Stop Time Status Last Admin Dose Admin Acetaminophen (Tylenol Tab) 500 mg NOW STAT PO 10/13/17 15:29 10/13/17 15:30 DC 10/13/17 15:42 500 MG Medical Decision Patient was seen and evaluated as above. She presents to us today with left hand pain, specifically overlying the left second MCP extending to the PIP joint. This is status post punching a wall. She also has complaints of bilateral eye irritation 2 weeks. After obtaining a thorough history and physical examination the above work up was performed. X-ray results as above. Negative for acute process. In regard to her eyes, I suspect she is likely experiencing bilateral allergic conjunctivitis which is improving. No evidence of cellulitis, or infectious cause. An Yinka wrap was applied her left hand. She is to follow with her family doctor or orthopedics if the pain persists. She was educated upon the risk of occult fracture. She was given Tylenol here for pain. She has pain medication at home. The patient was educated upon management, had questions answered prior to discharge, and was discharged home in good condition. In the evaluation and treatment of this patient the following differential diagnoses were entertained: Hand fracture, dislocation, contusion, eye conjunctivitis, cellulitis, among others. Impression Primary Impression: Hand pain, left Additional Impression: Allergic conjunctivitis, bilateral Departure Information Dispostion Home / Self-Care Condition GOOD Referrals Leonid Morgan M.D. (PCP) Patient Instructions [facility] Additional Instructions You have been treated in the Emergency Department for hand pain. For pain control, you can use the following [id number] medicines: - Regular strength (325mg/tab) Tylenol (acetaminophen) 2 tabs every 4-6 hours as needed. Do not exceed 12 tablets in a 24 hour period. Avoid taking more than 3 grams (3000 mg) of Tylenol per day. This includes any other sources of acetaminophen you may take on a regular basis. - Regular strength (200 mg/tab) Advil (ibuprofen) 1-2 tabs every 4-6 hours as needed. Do not exceed a dose of 3200 mg per day. If this is a recent injury (<24 hrs), ice can be applied to the area of pain for the first 3 days to help decrease pain and inflammation. You have been provided the number for an Orthopaedic Surgeon. You should call this number as soon as possible to establish a follow-up visit from today's Emergency Department visit. Keep the brace/splint in place until pain free or evaluated by Orthopedics Return to the Emergency Department if your current symptoms worsen despite treatment course outlined above, or if you develop any of the following symptoms : intractable pain despite aforementioned treatment course or new onset of numbness or tingling of the fingers. Warm compresses to the eyes for 5 minutes with warm washcloth daily. Do not use same cloth on both eyes Problem Qualifiers
[2017-10-13 16:07] VITALS: BP 149/91; PULSE 91; O2SAT 97
== END 2017-10-13 16:05 | disposition home or self-care (01) ==
LOC: C.EDB 14:47 → C.EDD 16:05
DX: M79.642 Pain in left hand (principal); W22.8XXA Striking against or struck by other objects, initial encounter; Y92.013 Bedroom of single-family (private) house as the place of occurrence of the external cause; H10.13 Acute atopic conjunctivitis, bilateral; J45.909 Unspecified asthma, uncomplicated; M54.5 Low back pain; G89.29 Other chronic pain; N18.3 Chronic kidney disease, stage 3 (moderate); J44.9 Chronic obstructive pulmonary disease, unspecified; F32.9 Major depressive disorder, single episode, unspecified; E11.9 Type 2 diabetes mellitus without complications; E78.5 Hyperlipidemia, unspecified; K21.9 Gastro-esophageal reflux disease without esophagitis; Z86.718 Personal history of other venous thrombosis and embolism; G43.909 Migraine, unspecified, not intractable, without status migrainosus; I12.9 Hypertensive chronic kidney disease with stage 1 through stage 4 chronic kidney disease, or unspecified chronic kidney disease; G47.00 Insomnia, unspecified; G35 Multiple sclerosis; E66.9 Obesity, unspecified; M19.90 Unspecified osteoarthritis, unspecified site; K27.9 Peptic ulcer, site unspecified, unspecified as acute or chronic, without hemorrhage or perforation; Z80.9 Family history of malignant neoplasm, unspecified; Z82.49 Family history of ischemic heart disease and other diseases of the circulatory system; Z83.3 Family history of diabetes mellitus; Z83.79 Family history of other diseases of the digestive system; Z83.6 Family history of other diseases of the respiratory system; Z87.891 Personal history of nicotine dependence; Z79.899 Other long term (current) drug therapy

== ENCOUNTER 2017-10-21 02:35 | Emergency (ER) | payer OTHER ==
[~2017-10-21 02:35] MED LIST changes: -ALBINS NEB; +CYM/30 PO; +IPRASOL4 INH; +NITR-5 PO; +OXYB5TAB PO
[2017-10-21] MEDS ORDERED: SODIUM CHLORIDE 0.9% 1000ML 1,000 ML IV SCH (02:49)
[2017-10-21 02:52] VITALS: O2SAT 97
--- NOTE | 2017-10-21 02:53 | EMERGENCY ROOM VISIT NOTE ---
History Report prepared by Lakeishaibshalom: Karen Staton Under the Supervision of: Dr. Debbie Curry M.D. First contact with patient: 02:29 Chief Complaint: STROKE SYMPTOMS Stated Complaint: STROKE History of Present Illness The patient is a 46 year old female who presents to the Emergency Room with complaints of persistent possible stroke symptoms. She was brought to the ED via EMS. She states her left arm started to feel numb and "lose feeling" around 2330 this evening, but her last known well time is undetermined. 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 The patient complains of a headache and left sided weakness currently. She states she had some chest discomfort earlier tonight. She has a history of a previous stroke. The patient reports she started smoking again today after previously quitting. She notes she did take her daily hypertension medications earlier today. Source of History: patient, EMS Onset: 2330 last night Position: other (global) Timing: other (persistent) Associated Symptoms: + headache, + chest pain Review of Systems See HPI for pertinent positives & negatives. A total of 10 systems reviewed and were otherwise negative. Past Medical & Surgical Medical Problems: (1) Ambulatory dysfunction (2) Asthma, moderate persistent (3) Atypical chest pain (4) Chronic constipation (5) Chronic low back pain (6) CKD (chronic kidney disease) stage 3, GFR 30-59 ml/min (7) COPD (chronic obstructive pulmonary disease) (8) Depression (9) Diabetes mellitus type 2 in obese (10) Diabetic gastroparesis (11) Dyslipidemia (12) GERD (gastroesophageal reflux disease) (13) History of DVT (deep vein thrombosis) (14) History of migraine (15) HTN (hypertension) (16) Insomnia (17) Left facial numbness (18) Left sided numbness (19) Multiple sclerosis (20) Obesity (21) Osteoarthritis (22) PUD (peptic ulcer disease) (23) Vertigo Surgical Problems: (1) H/O bilateral breast reduction surgery (2) H/O colonoscopy (3) H/O esophagogastroduodenoscopy (4) H/O exploratory laparotomy (5) History of arthroscopy of knee (6) History of carpal tunnel surgery (7) History of tubal ligation Family History Cancer SISTER Cardiac disorder FATHER MOTHER GRANDFATHER GRANDMOTHER Diabetes mellitus GRANDFATHER GRANDMOTHER FH: cancer FH: heart disease FHx: gallbladder disease FHx: lung disease Hypertension FATHER MOTHER Seizures FATHER Stroke FATHER Social History Smoking Status: Former Smoker Alcohol Use: none Drug Use: none Marital Status: Housing Status: lives with family Occupation Status: unemployed Current/Historical Medications Scheduled Atorvastatin (Lipitor), 40 MG PO HS Budesonide (Inhalation) (Pulmicort Respules 0.5MG/2ML), 2 ML NEB DAILY Carvedilol (Carvedilol), 3.125 MG PO BID Cetirizine HCl (Ra Allergy Relief), 10 MG PO QAM Cholecalciferol (Vitamin D), 4,000 INTER.UNIT PO HS Dicyclomine Hcl (Dicyclomine Hcl), 10 MG PO TID Doxycycline Monohydrate (Monodox), 100 MG PO BID Duloxetine HCl (Duloxetine HCl), 60 MG PO HS Duloxetine HCl (Cymbalta), 30 MG PO DAILY Fenofibrate (Fenofibrate), 145 MG PO HS Ferrous Sulfate (Ferrous Sulfate), 325 MG PO BID Fluticasone Propionate (Fluticasone Propionate), 2 SPRAYS OBDULIA DAILY Insulin Glargine (Lantus Solostar), 25 UNITS SC HS Isosorbide Mononitrate Ext Rel (Imdur Ext Rel), 30 MG PO QAM Latanoprost (Latanoprost), 1 DROP OPB HS Losartan Potassium (Cozaar), 100 MG PO QAM Lubiprostone (Amitiza), 24 MCG PO BIDM Magnesium Oxide (Mag-Ox), 400 MG PO QAM Menthol (Topical Analgesic) (Biofreeze Roll-On), 1 APPLN TOP QID Mometasone Furoate-Formoterol (Dulera 200/5 Mcg), 2 PUFFS INH BID Montelukast Sod (Montelukast Sodium), 10 MG PO HS Nitrofurantoin Monohyd Macrocr (Macrobid), 100 MG PO BID Oxybutynin Chloride (Oxybutynin Chloride Er), 5 MG PO DAILY Pantoprazole (Pantoprazole Sodium), 40 MG PO QAM Polyethylene (Polyethylene Glycol 3350), 17 GM PO DAILY Pregabalin (Lyrica), 100 MG PO BID Probiotic Product (Bacid), 1 TAB PO BID Ranitidine Hcl (Zantac), 300 MG PO BID Sennosides-Docusate Sodium (Senna-S), 3 TABS PO TID Temazepam (Restoril), 30 MG PO HS Tizanidine Hcl (Zanaflex), 1 MG PO BID Scheduled PRN Albuterol Hfa (Ventolin Hfa), 2 PUFFS INH QID PRN for SOB/Wheezing Benzonatate (Tessalon Perles), 100-200 MG PO TID PRN for Cough Epinephrine (Epinephrine), 0.3 MG IM UD PRN for ALLERGIC REACTION Home O2 Therapy (Oxygen), 2 LITERS NA UD PRN for Shortness of Breath Hydromorphone Hcl (Hydromorphone Hcl), 2 MG PO Q6H PRN for Pain Ipratropium-Albuterol (Duoneb), 1 TREATMENT INH Q6H PRN for SOB/Wheezing Lactulose (Chronulac), 15 ML PO BID PRN for Constipation Nitroglycerin (Nitrostat), 0.4 MG SL UD PRN for Chest Pain Ondansetron Odt (Zofran Odt), 8 MG PO DAILY PRN for Nausea or Vomiting Promethazine HCl (Promethazine HCl), 25 MG PO Q6H PRN for Nausea or Vomiting Allergies Coded Allergies: Bee Venom (Verified Allergy, Severe, THROAT SWELLS, 10/21/17) Morphine (Verified Allergy, Severe, ANAPHYLAXIS, 10/21/17) Morphine and Related (Verified Allergy, Severe, ANAPHYLAXIS, 10/21/17) Wasp Venom Protein (Verified Allergy, Severe, THROAT SWELLS, 10/21/17) Adhesives (Verified Allergy, Intermediate, RASH, 10/21/17) Celecoxib (Verified Allergy, Intermediate, HIVES, 10/21/17) Codeine (Verified Allergy, Intermediate, HIVES, 10/21/17) Hydrocodone (Verified Allergy, Intermediate, HIVES, 10/21/17) Oxycodone (Verified Allergy, Intermediate, HIVES, 10/21/17) Penicillins (Verified Allergy, Intermediate, HIVES, 10/21/17) Salicylates (Verified Allergy, Intermediate, GI SYMPTOMS, 10/21/17) Tramadol (Verified Allergy, Intermediate, HIVES, 10/21/17) Nortriptyline (Verified Allergy, Unknown, UNKNOWN, 10/21/17) Metoclopramide (Verified Adverse Reaction, Intermediate, HYPERACTIVITY, ) NSAIDs (Verified Adverse Reaction, Intermediate, HIVES, DYSPEPSIA, 10/21/17 ) Celebrex (hives), Valdecoxib (hives), Vioxx (hives), salicylates (dyspepsia) per PCP records Diphenhydramine (Verified Adverse Reaction, Mild, Difficulty urinating, ) Physical Exam Vital Signs Date Time Temp Pulse Resp B/P (MAP) Pulse Ox O2 Delivery O2 Flow Rate FiO2 10/21/17 06:26 36.8 82 16 139/70 100 Room Air 10/21/17 06:07 86 10/21/17 05:39 87 16 145/72 100 Room Air 10/21/17 04:31 76 16 143/66 100 Room Air 10/21/17 04:20 89 14 151/82 98 Room Air 10/21/17 04:01 85 19 168/98 97 Room Air 10/21/17 03:46 94 20 147/105 97 Room Air 10/21/17 03:31 85 24 145/113 99 Room Air 10/21/17 02:52 97 Room Air 10/21/17 02:45 86 10/21/17 02:40 36.7 87 20 156/111 98 Room Air Physical Exam Vital signs reviewed. General: Obese, chronically ill-appearing 46 year old female, in no significant distress. HEENT: No scleral icterus, PERRLA, neck supple. Atraumatic. Cardiovascular: Regular rate and rhythm, no extra sounds. Pulmonary: Clear to auscultation bilaterally, normal work of breathing. Abdomen: Soft, nontender, nondistended, positive bowel sounds. Musculoskeletal: Atraumatic, no peripheral edema. Neurologic: Mild nasolabial fold flattening. Exaggerated tongue deviation to the left. Weakness of the left upper and left lower extremities, approximately 2 /5. Skin: Warm, dry, no rash Medical Decision & Procedures ER Provider Diagnostic Interpretation: Radiology results as stated below per my review and radiologist interpretation: CTA Neck Limited by body habitus and collateral vessels at the right side containing bolus. No evidence of flow significant stenosis or dissection. Radiologist: Dr. Doug Young MD CTA Head No vessel cut off, flow significant stenosis or aneurysm identified. Radiologist: Dr. Doug Young MD Laboratory Results 10/21/17 02:52 Red Blood Count 3.98, Mean Corpuscular Volume 97.0, Mean Corpuscular Hemoglobin 33.4, Mean Corpuscular Hemoglobin Concent 34.5, Mean Platelet Volume 10.7, Neutrophils (%) (Auto) 69.0, Lymphocytes (%) (Auto) 22.7, Monocytes (%) (Auto) 5.5, Eosinophils (%) (Auto) 2.3, Basophils (%) (Auto) 0.2, Neutrophils # (Auto) 7.90, Lymphocytes # (Auto) 2.60, Monocytes # (Auto) 0.63, Eosinophils # (Auto) 0.26, Basophils # (Auto) 0.02 10/21/17 02:15 Test 10/21/17 02:15 10/21/17 02:52 10/21/17 02:55 Estimated GFR () 68.5 Estimated GFR (Non- 59.1 BUN/Creatinine Ratio 9.6 (10-20) Calcium Level 8.8 mg/dl (8.5-10.1) Magnesium Level 1.9 mg/dl (1.8-2.4) Total Creatine Kinase 118 U/L (26-192) Creatine Kinase MB 1.2 ng/ml (0.5-3.6) Creatine Kinase MB Ratio 1.0 (0-3.0) Troponin I < 0.015 ng/ml (0-0.045) White Blood Count 11.45 K/uL (4.8-10.8) Red Blood Count 3.98 M/uL (4.2-5.4) Hemoglobin 13.3 g/dL (12.0-16.0) Hematocrit 38.6 % (37-47) Mean Corpuscular Volume 97.0 fL (80-100) Mean Corpuscular Hemoglobin 33.4 pg (25-34) Mean Corpuscular Hemoglobin Concent 34.5 g/dl (32-36) Platelet Count 279 K/uL (130-400) Mean Platelet Volume 10.7 fL (7.4-10.4) Neutrophils (%) (Auto) 69.0 % Lymphocytes (%) (Auto) 22.7 % Monocytes (%) (Auto) 5.5 % Eosinophils (%) (Auto) 2.3 % Basophils (%) (Auto) 0.2 % Neutrophils # (Auto) 7.90 K/uL (1.4-6.5) Lymphocytes # (Auto) 2.60 K/uL (1.2-3.4) Monocytes # (Auto) 0.63 K/uL (0.11-0.59) Eosinophils # (Auto) 0.26 K/uL (0-0.5) Basophils # (Auto) 0.02 K/uL (0-0.2) RDW Standard Deviation 46.2 fL (36.4-46.3) RDW Coefficient of Variation 13.0 % (11.5-14.5) Immature Granulocyte % (Auto) 0.3 % Immature Granulocyte # (Auto) 0.04 K/uL (0.00-0.02) Prothrombin Time 10.0 SECONDS (9.0-12.0) Prothromb Time International Ratio 1.0 (0.9-1.1) Activated Partial Thromboplast Time 25.8 SECONDS (21.0-31.0) Partial Thromboplastin Ratio 1.0 Estimated Average Glucose 140 mg/dl Hemoglobin A1c 6.5 % (4.5-5.6) Bedside Hemoglobin 13.3 g/dl (12.0-16.0) Bedside Hematocrit 39 % (37-47) Bedside Prothrombin Time INR 0.9 (0.9-1.1) Bedside Sodium 137 mEq/L (135-144) Bedside Potassium 3.5 mEq/L (3.3-5.0) Bedside Chloride 100 mEq/L (101-112) Bedside Total CO2 23 mEq/l (24-31) Anion Gap 18.0 mmol/L (16-25) Bedside Blood Urea Nitrogen 10 mg/dl (7-18) Bedside Creatinine 1.0 mg/dl (0.6-1.3) Bedside Glucose (other) 165 mg/dl (70-99) Bedside Ionized Calcium (Crow) 1.16 mmol/l (1.12-1.32) Laboratory results per my review. Medications Administered Medications (Trade) Dose Ordered Sig/Stepan Route Start Time Stop Time Status Last Admin Dose Admin Sodium Chloride 1,000 ml @ 50 mls/hr Q20H IV 10/21/17 02:49 3/15/18 07:29 DC 10/21/17 03:10 50 MLS/HR ECG Per My Interpretation Indication: weakness Rate (beats per minute): 87 Rhythm: normal sinus Findings: prolonged QT (of 488 miliseconds), no ectopy, other (No ST changes) ED Course 0242: Past medical records reviewed. The patient was evaluated in room A1. A complete history and physical examination was performed. 0249: NSS 1000 ml @ 50 mls/hr IV. 0259: I discussed the patients case with Dr. Garza, [facility] Stroke Neurology. The patient will be further evaluated. 0506: I discussed the patients case with Dr. Arauz, [facility] Hospitalist. The patient will be further evaluated. 06: Dr. Arauz informed me he spoke to the patient and she does not want to stay in the hospital. I will reevaluate the patient. 0630: I reevaluated the patient. She would like to go home. I discussed the risks associated with leaving a hospital against medical advice and she verbalized complete understanding. Medical Decision Differential diagnosis: Etiologies such as metabolic, infection, hypo/hyperglycemia, electrolyte abnormalities, cardiac sources, intracerebral event, toxicologic, neurologic, as well as others were entertained. This pt was evaluated and appeared to be in no distress. IV access was obtained and lab work was drawn. Pt has a difficult story to interpret. There is a questionable onset, inconsistent symptoms and a social anxiety/stressor regarding her . She is asking that he leave the room. She would only like to have her son present. The tele stroke radiologist, Dr. Garza, agrees with the inability to administer TPA as she is not meeting criteria. On recommendations to admit the patient, the hospitalist was contacted. Dr Maria evaluated the pt, but she refuses to stay, stating her adult son would be in danger if left alone with her . She walks with a crutch and is able to ambulate with her crutch. She was warned advised of the risks of leaving, worsening symptoms and . She has signed out AMA and will return to the ED for worsening of symptoms or any medical concerns. She was advised to seek close f/u with PCP YAMIL. Medication Reconcilliation Current Medication List: was personally reviewed by me Blood Pressure Screening Patient's blood pressure: Elevated blood pressure Blood pressure disposition: Referred to PCP Consults Time Called: 024 Consulting Physician: Dr. Garza, [facility] Returned Call: [phone] I discussed the patients case with Dr. Garza, [facility]. The patient will be further evaluated. Additional Consults: Time Called: 050 Consulted Physician: Tess Zimmerman Hospitalist Returned Call: [phone] Additional Comments: I discussed the patients case with Tess Zimmerman. The patient will be further evaluated. Impression Primary Impression: Stroke-like symptoms Additional Impressions: Hypertension Left against medical advice Scribe Attestation The scribe's documentation has been prepared under my direction and personally reviewed by me in its entirety. I confirm that the note above accurately reflects all work, treatment, procedures, and medical decision making performed by me. Departure Information Dispostion Against Medical Advice Referrals Leonid Morgan M.D. (PCP) Patient Instructions My [facility], Stroke [facility] Additional Instructions Diagnosis: Strokelike symptoms, hypertension, AGAINST MEDICAL ADVICE You have signed yourself out AGAINST MEDICAL ADVICE today. Inpatient admission for further neurologic workup was recommended. Please return for worsening or increasing symptoms. Take your medications as prescribed. Follow up with your doctor this week for reevaluation. Problem Qualifiers
[2017-10-21 02:59] LABS: BASO % 0.2 %; BASO ABS # 0.02 K/uL (0-0.2); EOS % 2.3 %; EOS ABS # 0.26 K/uL (0-0.5); HEMATOCRIT 38.6 % (37-47); HEMOGLOBIN 13.3 g/dL (12.0-16.0); IG# 0.04 K/uL (0.00-0.02); LYMPH % 22.7 %; MEAN CORPUSCULAR HEMOGLOBIN 33.4 pg (25-34); MEAN CORPUSCULAR HGB CONC 34.5 g/dl (32-36); MEAN PLATELET VOLUME 10.7 fL (7.4-10.4); MONO % 5.5 %; MONO ABS # 0.63 K/uL (0.11-0.59); PLATELET COUNT 279 K/uL (130-400); RED CELL DISTRIBUTION WIDTH SD 46.2 fL (36.4-46.3); WHITE BLOOD COUNT 11.45 K/uL (4.8-10.8)
[2017-10-21] MEDS ORDERED: OPTIRAY 320 IV PRN (03:00)
[2017-10-21 03:03] LABS: PTT PATIENT 25.8 SECONDS (21.0-31.0)
[2017-10-21 03:06] LABS: ISTAT IONIZED CALCIUM 1.16 mmol/l (1.12-1.32); ISTAT POTASSIUM 3.5 mEq/L (3.3-5.0)
[2017-10-21 03:08] LABS: BLOOD UREA NITROGEN 11 mg/dl (7-18); CALCIUM 8.8 mg/dl (8.5-10.1); CARBON DIOXIDE 25 mmol/L (21-32); CREATININE 1.11 mg/dl (0.60-1.20); GLUCOSE 171 mg/dl (70-99); POTASSIUM 3.3 mmol/L (3.5-5.1); SODIUM 134 mmol/L (136-145)
[2017-10-21 03:13] LABS: CKMB 1.2 ng/ml (0.5-3.6)
[2017-10-21 06:26] VITALS: BP 139/70; PULSE 82; TEMP 36.8; O2SAT 100
[2017-10-21] MEDS ORDERED: IV FLUIDS COMPLETED PRN (06:30)
--- NOTE | 2017-10-21 06:46 | DIAGNOSTIC IMAGING REPORT ---
HEAD WITHOUT CONTRAST (CT) CT DOSE: 614.27 mGy.cm HISTORY: Mental status change CVA TECHNIQUE: Multiaxial CT images of the head were performed without the use of intravenous contrast. A dose lowering technique was utilized adhering to the principles of ALARA. Comparison: 09/17/2017 Findings: The paranasal sinuses and mastoid air cells are clear. The calvarium and skull base are intact. The ventricles and sulci are within normal limits. There is no mass, hematoma, midline shift, or acute infarct. Impression: No acute intracranial abnormality. The above report was generated using voice recognition software. It may contain grammatical, syntax or spelling errors. Electronically signed by: Ramon Brambila M.D. 10/21/2017 6:45 AM Dictated Date/Time: 10/21/2017 6:44 AM
--- NOTE | 2017-10-21 07:09 | DIAGNOSTIC IMAGING REPORT ---
CHEST ONE VIEW PORTABLE CLINICAL HISTORY: 46 years-old Female presenting with CVA. TECHNIQUE: Portable upright AP view of the chest was obtained. COMPARISON: 03/28/2017. FINDINGS: The patient is CASSIE rotated. Cardiomediastinal silhouette normal allowing for rotation. Mildly low lung volumes. No focal opacity. No large effusion or pneumothorax. Post traumatic deformity of the distal left clavicle. Degenerative changes of the spine. Upper abdomen normal. IMPRESSION: 1. No acute cardiopulmonary disease. Electronically signed by: Eduardo Acosta M.D. 10/21/2017 7:08 AM Dictated Date/Time: 10/21/2017 7:07 AM
--- NOTE | 2017-10-21 07:16 | DIAGNOSTIC IMAGING REPORT ---
HEAD ANGIO WITH CONTRAST, ANGIOGRAPHY NECK COMBO CLINICAL HISTORY: 46 years-old Female presenting with stroke like symptoms, left sided chest pain. TECHNIQUE: Multidetector CT angiography of the head and neck was performed after the administration of intravenous contrast. 3-D volumetric and/or maximum intensity projection (MIP) images were subsequently reconstructed for review. IV contrast: 119 mL of Optiray 320. A dose lowering technique was used consistent with the principles of ALARA (as low as reasonably achievable). Stenosis measurements were based on NASCET-like criteria. COMPARISON: Noncontrast CT head performed earlier the same day. CT DOSE (mGy.cm): The estimated cumulative dose is 866.52 mGy.cm. FINDINGS: Director Of Academic Support topogram: Unremarkable. CTA HEAD: Image quality is degraded by opacification of venous structures and suboptimal contrast bolus. Allowing for this, the anterior circulation including intracranial portions of the internal carotid arteries, anterior and middle cerebral arteries, and anterior to indicating artery patent. Posterior circulation demonstrates codominant vertebral arteries contributing to the patent basilar artery. Posterior inferior cerebellar, superior cerebellar, and posterior cerebral arteries patent. Anterior inferior cerebellar arteries poorly visualized. Posterior communicating artery is hypoplastic or aplastic. No evidence of aneurysm, focal vessel occlusion, or significant stenosis in the intracranial arteries. CTA NECK: Image quality is degraded by opacification of venous structures and suboptimal contrast bolus. Allowing for this, three-vessel aortic arch with patent origins of the cervical vessels. Bilateral common and internal carotid arteries patent. Origins of the vertebral arteries poorly visualized. Remainder of the bilateral codominant vertebral arteries grossly patent. No evidence of focal vessel occlusion or significant stenosis in the cervical arteries. Evaluation for dissection is limited in the vertebral arteries. IMPRESSION: 1. No evidence of aneurysm, focal vessel occlusion, or significant stenosis in the intracranial arteries. 2. No evidence of focal vessel occlusion or significant stenosis in the cervical arteries. Evaluation for dissection is limited in the vertebral arteries. Electronically signed by: Eduardo Acosta M.D. 10/21/2017 7:15 AM Dictated Date/Time: 10/21/2017 7:08 AM
[2017-10-21 07:48] LABS: HEMOGLOBIN A1C 6.5 % (4.5-5.6)
== END 2017-10-21 06:48 | disposition left against medical advice (07) ==
LOC: C.EDA 02:35 → CANBEDREQ 06:29 → C.EDB 06:48
DX: R51 Headache (principal); R53.1 Weakness; R20.0 Anesthesia of skin; R07.9 Chest pain, unspecified; J45.909 Unspecified asthma, uncomplicated; N18.3 Chronic kidney disease, stage 3 (moderate); J44.9 Chronic obstructive pulmonary disease, unspecified; E11.22 Type 2 diabetes mellitus with diabetic chronic kidney disease; I12.9 Hypertensive chronic kidney disease with stage 1 through stage 4 chronic kidney disease, or unspecified chronic kidney disease; Z86.73 Personal history of transient ischemic attack (TIA), and cerebral infarction without residual deficits; Z72.0 Tobacco use; Z79.4 Long term (current) use of insulin; Z91.030 Bee allergy status; Z88.6 Allergy status to analgesic agent; Z91.048 Other nonmedicinal substance allergy status; Z88.8 Allergy status to other drugs, medicaments and biological substances; Z88.0 Allergy status to penicillin; Z82.49 Family history of ischemic heart disease and other diseases of the circulatory system; Z83.3 Family history of diabetes mellitus; Z83.79 Family history of other diseases of the digestive system; Z83.6 Family history of other diseases of the respiratory system; Z82.0 Family history of epilepsy and other diseases of the nervous system

== ENCOUNTER 2017-10-26 09:58 | Emergency (ER) | payer OTHER ==
[~2017-10-26] VITALS: Ht 162.6 cm; Wt 143.2 kg
[~2017-10-26 09:58] MED LIST changes: -HYDRCRE28 PR
[2017-10-26 10:08] VITALS: TEMP 36.5; Ht 162.6 cm; Wt 143.2 kg
--- NOTE | 2017-10-26 11:40 | DIAGNOSTIC IMAGING REPORT ---
R HAND MIN 3 VIEWS ROUTINE HISTORY: 46 years-old Female hand pain acute right hand pain status post trauma COMPARISON: Right hand radiographs 03/26/2016 TECHNIQUE: 3 views of the right hand FINDINGS: Mild triscaphe, first carpometacarpal and multidigit interphalangeal osteoarthritis. Subcortical cystic change of the first metacarpal. There is no acute fracture or dislocation identified. No opaque foreign body. IMPRESSION: Mild degenerative changes without acute fracture. The above report was generated using voice recognition software. It may contain grammatical, syntax or spelling errors. Electronically signed by: Monico Solorio M.D. 10/26/2017 11:38 AM Dictated Date/Time: 10/26/2017 11:36 AM
[2017-10-26 11:42] VITALS: PULSE 78
[2017-10-26 12:41] VITALS: BP 143/95; O2SAT 99
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
== END 2017-10-26 12:55 | disposition home or self-care (01) ==
LOC: C.EDB 09:59
DX: S60.221A Contusion of right hand, initial encounter (principal); W22.8XXA Striking against or struck by other objects, initial encounter; J45.909 Unspecified asthma, uncomplicated; N18.3 Chronic kidney disease, stage 3 (moderate); J44.9 Chronic obstructive pulmonary disease, unspecified; E11.22 Type 2 diabetes mellitus with diabetic chronic kidney disease; I12.9 Hypertensive chronic kidney disease with stage 1 through stage 4 chronic kidney disease, or unspecified chronic kidney disease; Z86.73 Personal history of transient ischemic attack (TIA), and cerebral infarction without residual deficits; Z79.4 Long term (current) use of insulin; Z91.030 Bee allergy status; Z88.8 Allergy status to other drugs, medicaments and biological substances; Z88.0 Allergy status to penicillin; F32.9 Major depressive disorder, single episode, unspecified; Z86.718 Personal history of other venous thrombosis and embolism; G47.00 Insomnia, unspecified; G35 Multiple sclerosis

== ENCOUNTER 2017-11-20 01:15 | Emergency (ER) | payer OTHER ==
[~2017-11-20] VITALS: Ht 162.6 cm; Wt 147.5 kg
[2017-11-20 01:17] VITALS: TEMP 36.6; Ht 162.6 cm; Wt 147.5 kg
[2017-11-20] MEDS ORDERED: NITROGLYCERIN 0.4 MG SL PER TAB CHARGE SL STA (01:37)
--- NOTE | 2017-11-20 01:43 | EMERGENCY ROOM VISIT NOTE ---
History Report prepared by Josue: Mikhail Lobato Under the Supervision of: Dr. Susan Bustamante D.O. First contact with patient: 01:22 Chief Complaint: CHEST PAIN Stated Complaint: CHEST PAIN History of Present Illness The patient is a 46 year old female who presents to the Emergency Room brought in by EMS with complaints of persistent chest pain since 43 today. Per , they stopped at [facility] to get gas and food when the patient began complaining of chest pain. Her blood glucose was 140. She took nitroglycerin at 5, which she states is helping, though she is still having pain. She currently rates her pain an 8/10 in severity. She states that she ordered a breakfast platter. She denies any history of cardiac stents. Per , the patient talks slowly when she develops chest pain. The patient reports a history of brain tumors, though she is scheduled to be seen by Dr. Jacome soon. She notes that she started working out at the [facility]. She states that she was working out at the [facility] for five hours yesterday. She notes left leg weakness that developed after October 20, 2017 due to a TIA. She notes that she left AMA at that due to "personal reasons." Per , the patient has a history of seizures. He notes that her whole body shakes. He states the patient had a seizure yesterday prior. She states that she does not drive even though she has an active license. When I discussed the patients suspension of license secondary to seizure activity, she became angry and her speech returned to normal. Source of History: patient, spouse/significant other Onset: 43 today Position: chest Symptom Intensity: 8/10 Timing: other (persistent) Associated Symptoms: + weakness (left leg) Note: Notes slowed speech. Review of Systems See HPI for pertinent positives & negatives. A total of 10 systems reviewed and were otherwise negative. Past Medical & Surgical Medical Problems: (1) Ambulatory dysfunction (2) Asthma, moderate persistent (3) Atypical chest pain (4) Bilateral upper abdominal pain (5) Chronic constipation (6) Chronic low back pain (7) CKD (chronic kidney disease) stage 3, GFR 30-59 ml/min (8) COPD (chronic obstructive pulmonary disease) (9) Depression (10) Diabetes mellitus type 2 in obese (11) Diabetic gastroparesis (12) Dyslipidemia (13) GERD (gastroesophageal reflux disease) (14) History of DVT (deep vein thrombosis) (15) History of migraine (16) HTN (hypertension) (17) Insomnia (18) Left facial numbness (19) Left knee pain (20) Left sided numbness (21) Multiple sclerosis (22) Obesity (23) Osteoarthritis (24) PUD (peptic ulcer disease) (25) Right foot pain (26) Right knee pain (27) Seizure (28) Vertigo Surgical Problems: (1) H/O bilateral breast reduction surgery (2) H/O colonoscopy (3) H/O esophagogastroduodenoscopy (4) H/O exploratory laparotomy (5) History of arthroscopy of knee (6) History of carpal tunnel surgery (7) History of tubal ligation Family History Cancer SISTER Cardiac disorder FATHER MOTHER GRANDFATHER GRANDMOTHER Diabetes mellitus GRANDFATHER GRANDMOTHER FH: cancer FH: heart disease FHx: gallbladder disease FHx: lung disease Hypertension FATHER MOTHER Seizures FATHER Stroke FATHER Social History Smoking Status: Current Every Day Smoker Alcohol Use: none Drug Use: none Marital Status: Housing Status: lives with family Occupation Status: unemployed Current/Historical Medications Scheduled Atorvastatin (Lipitor), 40 MG PO HS Budesonide (Inhalation) (Pulmicort Respules 0.5MG/2ML), 2 ML NEB DAILY Carvedilol (Carvedilol), 3.125 MG PO BID Cetirizine HCl (Ra Allergy Relief), 10 MG PO QAM Cholecalciferol (Vitamin D), 4,000 INTER.UNIT PO HS Dicyclomine Hcl (Dicyclomine Hcl), 10 MG PO TID Doxycycline Monohydrate (Monodox), 100 MG PO BID Duloxetine HCl (Duloxetine HCl), 60 MG PO HS Duloxetine HCl (Cymbalta), 30 MG PO DAILY Fenofibrate (Fenofibrate), 145 MG PO HS Ferrous Sulfate (Ferrous Sulfate), 325 MG PO BID Fluticasone Propionate (Fluticasone Propionate), 2 SPRAYS OBDULIA DAILY Insulin Glargine (Lantus Solostar), 25 UNITS SC HS Isosorbide Mononitrate Ext Rel (Imdur Ext Rel), 30 MG PO QAM Latanoprost (Latanoprost), 1 DROP OPB HS Losartan Potassium (Cozaar), 100 MG PO QAM Lubiprostone (Amitiza), 24 MCG PO BIDM Magnesium Oxide (Mag-Ox), 400 MG PO QAM Menthol (Topical Analgesic) (Biofreeze Roll-On), 1 APPLN TOP QID Mometasone Furoate-Formoterol (Dulera 200/5 Mcg), 2 PUFFS INH BID Montelukast Sod (Montelukast Sodium), 10 MG PO HS Nitrofurantoin Monohyd Macrocr (Macrobid), 100 MG PO BID Oxybutynin Chloride (Oxybutynin Chloride Er), 5 MG PO DAILY Pantoprazole (Pantoprazole Sodium), 40 MG PO QAM Polyethylene (Polyethylene Glycol 3350), 17 GM PO DAILY Pregabalin (Lyrica), 100 MG PO BID Probiotic Product (Bacid), 1 TAB PO BID Ranitidine Hcl (Zantac), 300 MG PO BID Sennosides-Docusate Sodium (Senna-S), 3 TABS PO TID Temazepam (Restoril), 30 MG PO HS Tizanidine Hcl (Zanaflex), 1 MG PO BID Scheduled PRN Albuterol Hfa (Ventolin Hfa), 2 PUFFS INH QID PRN for SOB/Wheezing Benzonatate (Tessalon Perles), 100-200 MG PO TID PRN for Cough Epinephrine (Epinephrine), 0.3 MG IM UD PRN for ALLERGIC REACTION Home O2 Therapy (Oxygen), 2 LITERS NA UD PRN for Shortness of Breath Hydromorphone Hcl (Hydromorphone Hcl), 2 MG PO Q6H PRN for Pain Ipratropium-Albuterol (Duoneb), 1 TREATMENT INH Q6H PRN for SOB/Wheezing Lactulose (Chronulac), 15 ML PO BID PRN for Constipation Nitroglycerin (Nitrostat), 0.4 MG SL UD PRN for Chest Pain Ondansetron Odt (Zofran Odt), 8 MG PO DAILY PRN for Nausea or Vomiting Promethazine HCl (Promethazine HCl), 25 MG PO Q6H PRN for Nausea or Vomiting Allergies Coded Allergies: Bee Venom (Verified Allergy, Severe, THROAT SWELLS, 11/20/17) Morphine (Verified Allergy, Severe, ANAPHYLAXIS, 11/20/17) Morphine and Related (Verified Allergy, Severe, ANAPHYLAXIS, 4/14/18) Wasp Venom Protein (Verified Allergy, Severe, THROAT SWELLS, 11/20/17) Adhesives (Verified Allergy, Intermediate, RASH, 11/20/17) Celecoxib (Verified Allergy, Intermediate, HIVES, 11/20/17) Codeine (Verified Allergy, Intermediate, HIVES, 11/20/17) Hydrocodone (Verified Allergy, Intermediate, HIVES, 11/20/17) Oxycodone (Verified Allergy, Intermediate, HIVES, 11/20/17) Penicillins (Verified Allergy, Intermediate, HIVES, 11/20/17) Salicylates (Verified Allergy, Intermediate, GI SYMPTOMS, 11/20/17) Tramadol (Verified Allergy, Intermediate, HIVES, 11/20/17) Nortriptyline (Verified Allergy, Unknown, UNKNOWN, 11/20/17) Metoclopramide (Verified Adverse Reaction, Intermediate, HYPERACTIVITY, ) NSAIDs (Verified Adverse Reaction, Intermediate, HIVES, DYSPEPSIA, 11/20/17 ) Celebrex (hives), Valdecoxib (hives), Vioxx (hives), salicylates (dyspepsia) per PCP records Diphenhydramine (Verified Adverse Reaction, Mild, Difficulty urinating, ) Physical Exam Vital Signs Date Time Temp Pulse Resp B/P (MAP) Pulse Ox O2 Delivery O2 Flow Rate FiO2 11/20/17 06:06 82 24 135/94 92 11/20/17 05:45 83 11/20/17 04:20 89 20 149/100 98 Room Air 11/20/17 02:35 88 20 146/97 96 Room Air 11/20/17 01:30 80 11/20/17 01:17 96 Room Air 11/20/17 01:17 36.6 84 20 143/79 96 Room Air Physical Exam General: This is a morbidly obese 46-year-old female patient HEENT: Head - normocephalic and atraumatic. Pupils are equal, round, and reactive to light. Extraocular eye muscles are intact and sclera are anicteric. Ears - bilaterally patent canals with noninjected tympanic membranes and no evidence of hemotympanum. Nose - moist nasal mucosa without discharge. Mouth - moist buccal mucosa. Oropharynx is nonerythematous and there is no tonsillar exudate or edema noted. Neck: Supple; no JVD, nuchal rigidity, cervical lymphadenopathy, or auscultated bruits. Heart: Regular rate and rhythm. There is a normal S1 and S2 with no murmurs, clicks, or gallops appreciated. Lungs: Clear to auscultation bilaterally with no wheezes, rales, or rhonchi. Abdomen: Soft, completely nontender, nondistended, with good bowel sounds. There are no palpable pulsatile masses or hepatosplenomegaly. There is no guarding, rigidity, or rebound noted. Extremities: No evidence of cyanosis, clubbing, or edema. There are easily palpable peripheral pulses. Neuro:The patient is awake and alert, oriented to day, time, and place. Right UE and LE muscle strength is 5/5. Left UE and LE muscle strength is 2/5. Slowed speech. Medical Decision & Procedures ER Provider Diagnostic Interpretation: Radiology results as stated below per my review and interpretation: CHEST XR: Portable. No pulmonary infiltrate. No pleural effusion. No obvious consolidation. Laboratory Results 11/20/17 01:38 11/20/17 01:38 Test 11/20/17 01:38 11/20/17 04:35 Red Blood Count 3.77 M/uL (4.2-5.4) Mean Corpuscular Volume 97.3 fL (80-100) Mean Corpuscular Hemoglobin 32.6 pg (25-34) Mean Corpuscular Hemoglobin Concent 33.5 g/dl (32-36) RDW Standard Deviation 45.6 fL (36.4-46.3) RDW Coefficient of Variation 12.8 % (11.5-14.5) Mean Platelet Volume 10.6 fL (7.4-10.4) Anion Gap 3.0 mmol/L (3-11) Est Creatinine Clear Calc Drug Dose 93.4 ml/min Estimated GFR () 70.8 Estimated GFR (Non- 61.1 BUN/Creatinine Ratio 14.1 (10-20) Calcium Level 8.0 mg/dl (8.5-10.1) Total Bilirubin 0.2 mg/dl (0.2-1) Direct Bilirubin < 0.1 mg/dl (0-0.2) Aspartate Amino Transf (AST/SGOT) 13 U/L (15-37) Alanine Aminotransferase (ALT/SGPT) 21 U/L (12-78) Alkaline Phosphatase 87 U/L (45-117) Total Protein 7.3 gm/dl (6.4-8.2) Albumin 3.2 gm/dl (3.4-5.0) Urine Color YELLOW Urine Appearance CLEAR (CLEAR) Urine pH 5.0 (4.5-7.5) Urine Specific [place] 1.017 (1.000-1.030) Urine Protein NEG (NEG) Urine Glucose (UA) NEG (NEG) Urine Ketones NEG (NEG) Urine Occult Blood NEG (NEG) Urine Nitrite NEG (NEG) Urine Bilirubin NEG (NEG) Urine Urobilinogen NEG (NEG) Urine Leukocyte Esterase TRACE (NEG) Urine WBC (Auto) 1-5 /hpf (0-5) Urine RBC (Auto) 0-4 /hpf (0-4) Urine Hyaline Casts (Auto) 1-5 /lpf (0-5) Urine Epithelial Cells (Auto) >30 /lpf (0-5) Urine Bacteria (Auto) NEG (NEG) Troponin I < 0.015 ng/ml (0-0.045) Laboratory results per my review. Medications Administered Medications (Trade) Dose Ordered Sig/Stepan Route Start Time Stop Time Status Last Admin Dose Admin Nitroglycerin (Nitrostat Tab) 0.4 mg Q5M STAT SL 11/20/17 01:37 11/20/17 01:39 DC 11/20/17 02:17 0.4 MG Ondansetron HCl (Zofran Inj) 4 mg NOW STAT IV 11/20/17 02:39 11/20/17 02:40 DC 11/20/17 02:48 4 MG Acetaminophen (Tylenol Tab) 1,000 mg NOW STAT PO 11/20/17 02:39 11/20/17 02:40 DC 11/20/17 02:48 1,000 MG Procedure 0137: Ordered Nitroglycerin 0.4 mg SL 0239: Ordered Tylenol 1,000 mg PO and Zofran 4 mg IV ECG Per My Interpretation Indication: chest pain Rate (beats per minute): 83 Rhythm: normal sinus Findings: nonspecific-ST abn, no acute ischemic change, no ectopy ED Course 0125: Past medical records reviewed. The patient was evaluated in room B7. A complete history and physical exam was performed. IV lock was established. A 12 -lead EKG was obtained. She was observed on the youth nutritional monitor and pulse oximeter. 0137: Ordered Nitroglycerin 0.4 mg SL for her persistent chest pain. 0219: The patient is complaining of a headache and nausea. 0239: Ordered Tylenol 1,000 mg PO and Zofran 4 mg IV 0330: The patient is sleeping at this time. 0514: I reassessed the patient at this time. I discussed the results and treatment plan with the patient. I answered all pertaining questions that she had. She expressed understanding and verbalized agreement. The patient will be discharged home. Medical Decision The patient is a 46 year old female who presents to the ED with chest pain. Differential diagnosis includes cardiac ischemia, anxiety, psychosomatic disorder, TIA, stroke, seizure, and pseudoseizure. Lab results showed: WBC 7.9; Stable H&H. Normal renal function. Gluc 130. Normal LFTs. Negative Troponin. Repeat Troponin was negative. This is a 46-year-old female patient presents to the emergency department with an episode of substernal chest pain and slow speech. The patient's states that this is a very common presentation for her. She has been to the emergency department in the past with the same exact symptoms. The patient had been admitted to the hospital last time but unfortunately signed out AGAINST MEDICAL ADVICE. The patient recently underwent an MRI of the brain which supposedly showed frontal tumors. I attempted to get a copy of the report from [facility] radiology in [place] but was not noted in her [facility] medical record. She has a follow-up appointment this week with her neurologist. I have asked her to keep that appointment. Medication Reconcilliation Current Medication List: was personally reviewed by me Blood Pressure Screening Patient's blood pressure: Elevated blood pressure Blood pressure disposition: Referred to PCP Impression Primary Impression: Substernal precordial chest pain Additional Impression: TIA (transient ischemic attack) Scribe Attestation The scribe's documentation has been prepared under my direction and personally reviewed by me in its entirety. I confirm that the note above accurately reflects all work, treatment, procedures, and medical decision making performed by me. Departure Information Dispostion Home / Self-Care Referrals Leonid Morgan M.D. (PCP) Forms Call Back Authorization, HOME CARE DOCUMENTATION FORM, IMPORTANT VISIT INFORMATION Patient Instructions ED Chest Pain Atypical Unkn Cause, My [facility], TIA Additional Instructions NO DRIVING - you may be having seizures Follow with Neuology this week. Return to ER if you develop worsening chest pain or problems with your speech. Problem Qualifiers Additional Impression: TIA (transient ischemic attack) Transient cerebral ischemia type: unspecified Qualified Codes: G45.9 - Transient cerebral ischemic attack, unspecified
[2017-11-20 01:58] LABS: HEMATOCRIT 36.7 % (37-47); HEMOGLOBIN 12.3 g/dL (12.0-16.0); MEAN CELL VOLUME 97.3 fL (80-100); MEAN CORPUSCULAR HEMOGLOBIN 32.6 pg (25-34); MEAN CORPUSCULAR HGB CONC 33.5 g/dl (32-36); MEAN PLATELET VOLUME 10.6 fL (7.4-10.4); PLATELET COUNT 262 K/uL (130-400); RED CELL DISTRIBUTION WIDTH CV 12.8 % (11.5-14.5); RED CELL DISTRIBUTION WIDTH SD 45.6 fL (36.4-46.3); WHITE BLOOD COUNT 7.98 K/uL (4.8-10.8)
[2017-11-20 02:16] LABS: ALBUMIN 3.2 gm/dl (3.4-5.0); ALT/SGPT 21 U/L (12-78); AST/SGOT 13 U/L (15-37); BLOOD UREA NITROGEN 15 mg/dl (7-18); CARBON DIOXIDE 26 mmol/L (21-32); CREATININE 1.08 mg/dl (0.60-1.20); GLUCOSE 130 mg/dl (70-99); POTASSIUM 3.5 mmol/L (3.5-5.1); SODIUM 135 mmol/L (136-145)
[2017-11-20 02:21] LABS: ALKALINE PHOSPHATASE 87 U/L (45-117); TOTAL PROTEIN 7.3 gm/dl (6.4-8.2)
[2017-11-20] MEDS ORDERED: ACETAMINOPHEN 500 MG TAB PO STA (02:39)
[2017-11-20] MEDS ORDERED: ONDANSETRON INJ 2 MG/ML 2 ML VIAL IV STA (02:39)
[2017-11-20 06:06] VITALS: BP 135/94; PULSE 82; O2SAT 92
--- NOTE | 2017-11-20 07:20 | DIAGNOSTIC IMAGING REPORT ---
CHEST ONE VIEW PORTABLE CLINICAL HISTORY: Chest pain and shortness of breath COMPARISON STUDY: 10/21/2017 FINDINGS: The cardiac and mediastinal contours are normal. There is no evidence of focal pulmonary consolidation. There is no evidence of failure. No pleural effusions are visualized.[ Slight interstitial prominence, is likely accentuated due to the patient's body habitus. There is an old left clavicular fracture. IMPRESSION: No active disease in the chest. Electronically signed by: Kumar Perez M.D. 11/20/2017 7:19 AM Dictated Date/Time: 11/20/2017 7:18 AM
== END 2017-11-20 06:08 | disposition home or self-care (01) ==
LOC: EDUNIT# 01:20 → C.EDB 01:22
DX: R07.2 Precordial pain (principal); G45.9 Transient cerebral ischemic attack, unspecified; J45.909 Unspecified asthma, uncomplicated; N18.3 Chronic kidney disease, stage 3 (moderate); J44.9 Chronic obstructive pulmonary disease, unspecified; E11.9 Type 2 diabetes mellitus without complications; E78.5 Hyperlipidemia, unspecified; K21.9 Gastro-esophageal reflux disease without esophagitis; K27.9 Peptic ulcer, site unspecified, unspecified as acute or chronic, without hemorrhage or perforation; F17.200 Nicotine dependence, unspecified, uncomplicated; Z79.899 Other long term (current) drug therapy; Z91.030 Bee allergy status; Z88.2 Allergy status to sulfonamides; Z88.8 Allergy status to other drugs, medicaments and biological substances; Z88.5 Allergy status to narcotic agent; Z88.0 Allergy status to penicillin; Z88.6 Allergy status to analgesic agent

== ENCOUNTER 2023-12-15 11:56 | Inpatient (IN) ==
--- NOTE | 2023-12-15 12:01 | Emergency Department Note ---
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 famotidine 20 mg Tablet 20 mg PO DAILY fluticasone propion-salmeterol [Advair Diskus] 100-50 mcg/dose Blister With Device 1 inh INHALATION BID oxybutynin chloride 10 mg tablet extended release 24hr 10 mg PO HS albuterol sulfate [Ventolin HFA] 90 mcg/actuation HFA aerosol inhaler 1 puff INHALATION QID PRN (Reason: Wheezing) Referrals Referrals: Gabriela Chinchilla MD [Primary Care Provider] -
[2023-12-15] MEDS: OPTIRAY 320 125ml IV ONE (12:02)
--- NOTE | 2023-12-15 12:17 | CT Scan Report ---
CT OF THE HEAD WITHOUT CONTRAST CLINICAL HISTORY: neuro deficit, acute stroke suspected COMPARISON STUDY: Head CT April 14, 2022. MRI of the brain September 02, 2015. TECHNIQUE: Helical axial images of the head were obtained without IV contrast. Automated exposure con trol was utilized for the study. A dose lowering technique was utilized adhering to the principles o f ALARA. FINDINGS: No acute intracranial hemorrhage, midline shift or mass effect is present. The ventricular system is unremarkable. The basal cisterns are patent. No extra-axial collections are present. There are no findings to suggest acute dural sinus thrombosis or acute territorial infarct. No significant calvarial abnormalities are present. Visualized portions of the sinuses and mastoid air cells are janeen ar. IMPRESSION: No acute intracranial findings. ACT 112: Negative or not required by law. Electronically signed by: Clarke Bull M.D. 12/15/2023 12:15 PM
--- NOTE | 2023-12-15 12:27 | CT Scan Report ---
NECK CTA HISTORY: neuro deficit, acute stroke suspected TECHNIQUE: Multiaxial CT images of the neck were performed following the intravenous administration o f contrast to evaluate the major cervical vessels. 3D/MIP images were also obtained. Sagittal and cor onal reformats were reviewed. All measurements were calculated based on NASCET criteria. A dose low ering technique was utilized adhering to the principles of ALARA. COMPARISON STUDY: None. FINDINGS: The aortic arch and proximal great vessels are widely patent. There is no significant sten osis, occlusion, or dissection identified within the bilateral common carotid, internal carotid, or v ertebral arteries. Mild calcified plaque within the left carotid bulb. IMPRESSION: No significant stenosis, occlusion, or dissection identified within the carotid or vertebral arteries . ACT 112: Negative or not required by law. Electronically signed by: Cal Gu M.D. 12/15/2023 12:25 PM
--- NOTE | 2023-12-15 12:28 | CT Scan Report ---
CT angio head w con CLINICAL HISTORY: neuro deficit, acute stroke suspected TECHNIQUE: CT angiography of the head was performed following intravenous administration of iodinated contrast. Coronal and sagittal MIPS were obtained from the axial data set and were submitted for rev iew. Automated dose lowering techniques and/or adjustment according to patient size were utilized fo r this examination. All measurements were calculated based on NASCET criteria. Comparison: Comparison is made to CT head 12/15/2023 FINDINGS: CTA Head: The anterior and posterior cerebral circulations are patent. No hemodynamically significan t stenosis, aneurysm, dissection, or arteriovenous malformation is shown. The left DIRECTOR CORPORATE SECURITY is relatively more prominent compared to the right, unchanged. IMPRESSION: No occlusion, hemodynamically significant stenosis, aneurysm, dissection, or arteriovenous malformati on in the major intracranial arteries. Assessment of stenosis of the internal carotid arteries is based on NASCET criteria. ACT 112: Negative or not required by law. Electronically signed by: Karan Avila M.D. 12/15/2023 12:27 PM
[2023-12-15 13:06] LABS: Basophils # (auto) 0.02 K/uL (0.00-0.20); Basophils % (auto) 0.3 %; Eosinophils # (auto) 0.11 K/uL (0.00-0.50); Eosinophils % (auto) 1.5 %; Hematocrit (blood only) 37.2 % (37.0-47.0); Hemoglobin 12.4 g/dl (12.0-16.0); Immature Granulocytes # (auto) 0.03 K/uL (0.01-0.20); Immature Granulocytes % (auto) 0.4 %; Lymphocytes # (auto) 1.43 K/uL (1.20-3.40); Lymphocytes % (auto) 19.5 %; Mean Corpuscular Hemoglobin 32.7 pg (25.0-34.0); Mean Corpuscular Hgb Conc 33.3 g/dL (32.0-36.0); Mean Corpuscular Volume 98.2 fL (80.0-100.0); Mean Platelet Volume 11.7 fL (9.4-12.4); Monocytes # (auto) 0.46 K/uL (0.11-0.59); Monocytes % (auto) 6.3 %; Platelet Count 198 K/uL (130-400); RDW Coefficient of Variation 11.9 % (11.5-14.5); RDW Standard Deviation 42.8 fL (36.4-46.3); Red Blood Count 3.79 M/uL (4.20-5.40); White Blood Count 7.35 K/ul (4.8-10.8)
[2023-12-15 13:12] LABS: Partial Thromboplastin Time 27 Seconds (21-31); Prothrombin Time 10.9 Seconds (9.0-12.0)
[2023-12-15 13:17] LABS: Alanine Aminotransferase 26 U/L (7-52); Albumin Globulin Ratio 1.4 (0.9-2); Albumin Level 4.1 gm/dl (3.4-5.0); Alkaline Phosphatase 58 U/L (34-104); Anion Gap 9 (3-11); Aspartate Aminotransferase 24 U/L (13-39); BUN Creatinine Ratio 17.3 (10-20); Bilirubin,Total 0.8 mg/dl (0.2-1.0); Blood Urea Nitrogen 17 mg/dl (6-23); Calcium 9.5 mg/dl (8.6-10.3); Carbon Dioxide 24 mmol/L (21-32); Chloride 104 mmol/L (98-107); Est GFR (African American) 75.8 ml/min; Est GFR (Non-African American) 65.4 ml/min; Glucose 100 mg/dl (70-99(Fasting)); Potassium 3.8 mmol/L (3.5-5.1); Sodium 137 mmol/L (136-145); Total Protein 7.1 gm/dl (6.0-8.3)
[2023-12-15 13:22] LABS: Troponin I High Sensitivity 4.6 pg/ml (0-14)
[2023-12-15] MEDS: ASPIRIN CHEW 324 MG PO STA (13:29)
[2023-12-15] MEDS: CLOPIDOGREL BISULFATE 300 MG TAB PO STA (13:29)
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
[2023-12-15] MEDS: ATORVASTATIN 40 MG TAB PO SCH ×2 (16:00→21:29)
[2023-12-15] MEDS ORDERED: LABETALOL HCL IV 5 MG/ML 20ML IV PRN (21:16)
[2023-12-15] MEDS ORDERED: ALBUTEROL HFA 8 GM INHALER INH PRN (21:16)
[2023-12-15] MEDS ORDERED: ACETAMINOPHEN 325 MG TAB PO PRN (21:16)
[2023-12-15] MEDS ORDERED: ONDANSETRON INJ 2 MG/ML 2 ML VIAL IV PRN (21:16)
[2023-12-15] MEDS ORDERED: PHARMACIST DISCHARGE MED REC CONSULT PRN (21:16)
[2023-12-15] MEDS ORDERED: NITROGLYCERIN SL 0.4 MG/TAB TAB SL PRN (21:16)
[2023-12-15] MEDS ORDERED: ARTIFICIAL TEARS OP PRN (21:20)
[2023-12-15] MEDS: MONTELUKAST SODIUM 10 MG TABLET PO SCH (21:24)
[2023-12-15] MEDS: OXYBUTYNIN CHLORIDE XL 5 MG TABCR PO SCH (21:24)
--- NOTE | 2023-12-16 02:02 | Communication Note ---
Date of Service: December 16, 2023 I was notified by nursing that Maddie Kenny stated that she is a DNR/DNI, which was contradictory to her current listed Full Code status. I went to bedside and discussed with the patient, she stated that she has "always" been a DNR/DNI and notes that her daughter who is her medical power of civil attorney is aware of this as well. Based on my discussion with the patient, she appears to be of sound mind to make this decision so I have updated her code status to DNR/DNI.
[2023-12-16 04:40] LABS: Basophils # (auto) 0.03 K/uL (0.00-0.20); Basophils % (auto) 0.4 %; Eosinophils # (auto) 0.19 K/uL (0.00-0.50); Eosinophils % (auto) 2.6 %; Hematocrit (blood only) 33.7 % (37.0-47.0); Hemoglobin 11.5 g/dl (12.0-16.0); Immature Granulocytes # (auto) 0.02 K/uL (0.01-0.20); Immature Granulocytes % (auto) 0.3 %; Lymphocytes # (auto) 1.89 K/uL (1.20-3.40); Lymphocytes % (auto) 26.1 %; Mean Corpuscular Hemoglobin 33.2 pg (25.0-34.0); Mean Corpuscular Hgb Conc 34.1 g/dL (32.0-36.0); Mean Corpuscular Volume 97.4 fL (80.0-100.0); Mean Platelet Volume 11.8 fL (9.4-12.4); Monocytes # (auto) 0.55 K/uL (0.11-0.59); Monocytes % (auto) 7.6 %; Neutrophils # (auto) 4.57 K/uL (1.40-6.50); Platelet Count 177 K/uL (130-400); RDW Standard Deviation 43.1 fL (36.4-46.3); Red Blood Count 3.46 M/uL (4.20-5.40); White Blood Count 7.25 K/ul (4.8-10.8)
[2023-12-16 05:04] LABS: BUN Creatinine Ratio 15.3 (10-20); Calcium 8.2 mg/dl (8.6-10.3); Chol HDL Ratio 3.2 (0-5); Creatinine Clr Calc Pharmacy 87.8 ml/min; Est GFR (African American) 75.8 ml/min; Est GFR (Non-African American) 65.4 ml/min; Potassium 3.4 mmol/L (3.5-5.1)
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
[2023-12-16 08:17] LABS: Estimated Average Glucose 120 mg/dl; Hemoglobin A1C 5.8 % (4.5-5.6)
[2023-12-16] MEDS ORDERED: FAMOTIDINE 20 MG TAB PO SCH (09:00)
[2023-12-16] MEDS: FAMOTIDINE 20MG IV PUSH 20 MG/5 ML SYR IV SCH (09:11)
[2023-12-16] MEDS: ASPIRIN 81 MG ECTAB PO SCH (09:12)
[2023-12-16] MEDS: MULTIVITAMIN TAB PO SCH (09:12)
[2023-12-16] MEDS: FLUTICASONE/VILANTEROL 100/25MCG 14 PUFFS/INHALER INH SCH (09:18)
[2023-12-16] MEDS: LORazepam 0.5 MG in SYRINGE 0.25 ML IV STA ×2 (09:37→10:14)
[2023-12-16] MEDS: LORazepam 1 MG/1 ML SYR ED Inj Use ONE (09:39)
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
[2023-12-16] MEDS: LORazepam 2 MG in SYRINGE 1 ML IV STA (13:33)
--- NOTE | 2023-12-16 15:52 | Magnetic Resonance Report ---
MR brain wo/w con CLINICAL HISTORY: Stroke like symtoms TECHNIQUE: Multiplanar and multisequence MR images of the brain were obtained prior to and following administration of gadolinium contrast. Comparison: None available at the time of this dictation. FINDINGS: No abnormal restricted diffusion is identified. The white matter is unremarkable. The ventricular sys tem is normal in appearance. No mass or abnormal enhancement is seen. There is no mass effect or midl ine shift. There is no evidence of acute intraparenchymal hemorrhage. No extra axial fluid collection s are seen. The corpus callosum, pituitary gland, and cerebellar tonsils appear grossly unremarkable. Flow voids of the major intracranial arterial vessels are identified. The imaged portions of the para nasal sinuses, mastoid air cells, and orbits are unremarkable. IMPRESSION: No acute abnormality and in particular no evidence of acute infarct. ACT 112: Negative or not required by law. Electronically signed by: Karan Avila M.D. 12/16/2023 3:50 PM
[2023-12-16] MEDS: GADOBUTROL 65ML VIAL IV ONE (16:16)
[2023-12-16] MEDS ORDERED: STROKE PATIENT DISCHARGE STA (17:21)
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
--- NOTE | 2023-12-16 19:28 | Billing Data ---
Date of Service December 16, 2023 Coding Level of Care Code 72231 IN/OBS DISCH 30 MIN/LESS
[2023-12-16] MEDS ORDERED: carvediloL 6.25 MG TAB PO SCH (21:00)
--- NOTE | 2023-12-17 05:59 | Electrocardiogram Report ---
Test Reason : Blood Pressure : / mmHG Vent. Rate : 068 BPM Atrial Rate : 068 BPM P-R Int : 154 ms QRS Dur : 072 ms QT Int : 432 ms P-R-T Axes : 049 031 032 degrees QTc Int : 459 ms Normal sinus rhythm Low voltage QRS Borderline ECG When compared with ECG of 22-AUG-2022 14:17, No significant change was found Confirmed by Jorgito Brown ([id number]) on 12/17/2023 5:59:22 AM Referred By: REFERRED SELF Confirmed By:Jorgito Brown
[2023-12-17] MEDS ORDERED: ATORVASTATIN 40 MG TAB PO SCH (09:00)
== END 2023-12-16 19:44 | DRG 57 ==
LOC: ED 11:56 → EDINP 15:31 → SUATTDRO 15:31 → EDINP 12-16 17:58
DX: I48.0 Paroxysmal atrial fibrillation; Z79.82 Long term (current) use of aspirin; Z92.3 Personal history of irradiation; Z88.5 Allergy status to narcotic agent; Z85.3 Personal history of malignant neoplasm of breast; Z88.6 Allergy status to analgesic agent; I12.9 Hypertensive chronic kidney disease with stage 1 through stage 4 chronic kidney disease, or unspecified chronic kidney disease; Z92.21 Personal history of antineoplastic chemotherapy; Z88.8 Allergy status to other drugs, medicaments and biological substances; G35 Multiple sclerosis; Z86.16 Personal history of COVID-19; Z85.41 Personal history of malignant neoplasm of cervix uteri; E11.22 Type 2 diabetes mellitus with diabetic chronic kidney disease; N18.30 Chronic kidney disease, stage 3 unspecified; G47.33 Obstructive sleep apnea (adult) (pediatric); Z79.899 Other long term (current) drug therapy; F17.210 Nicotine dependence, cigarettes, uncomplicated; Z79.01 Long term (current) use of anticoagulants; Z86.718 Personal history of other venous thrombosis and embolism; Z88.1 Allergy status to other antibiotic agents; H05.221 Edema of right orbit; J44.9 Chronic obstructive pulmonary disease, unspecified; R29.818 Other symptoms and signs involving the nervous system; Z88.0 Allergy status to penicillin; G81.91 Hemiplegia, unspecified affecting right dominant side

== ENCOUNTER 2024-09-22 09:07 | Inpatient (IN) ==
--- NOTE | 2024-09-22 09:46 | Emergency Department Note ---
Impression & Plan Syncope, Chest pain ED Provider Note NAME: BRENNON MARIA AGE: 53 SEX: F : 1970 ARRIVES VIA: Walk-In INFORMANT: Patient, ED PROVIDER(S): Jair Platt DO CHIEF COMPLAINT: Syncope HPI: The patient is a 53-year-old female who presented to the emergency department for an evaluation of syncope. The patient states that she called her primary headlight assembler and was referred to the emergency department for further evaluation. The patient denies having any abdominal pain. She has been noticing chest burning recently. She denies having any trauma. She states she had 2 episodes over the last 48 hours that occurred while seated. She has had a headache. She does not feel well. She feels though she has been having lower extremity swelling. The patient is also been noticing her blood pressure has been fluctuating. She has been taking her nitroglycerin with no significant relief of her chest pain. ROS: See above HPI for pertinent positives & negatives. A total of 10 systems reviewed and were otherwise negative. PAST MEDICAL HISTORY: See Below PAST SURGICAL HISTORY: See Below FAMILY HISTORY: See Below SOCIAL HISTORY: See Below HOME MEDICATIONS: See Below ALLERGIES: See Below VITALS: See Below PHYSICAL EXAMINATION: GENERAL: Patient is awake alert in no acute distress patient is resting comfortably and showing no signs of anxiety EYES: The conjunctivae are clear. The pupils are round and reactive. EARS, NOSE, MOUTH AND THROAT: The nose is without any evidence of any deformity. NECK: The neck is nontender and supple. RESPIRATORY: Normal respiratory effort is noted there is no evidence of wheezing rhonchi or rales CARDIOVASCULAR: Regular rate and rhythm noted there no murmurs rubs or gallops normal S1 normal S2. GASTROINTESTINAL: The abdomen is soft. Abdomen is nontender. PELVIS: The Pelvis is stable. No tenderness to palpation is noted. BACK: No midline tenderness or or step-off noted range of motion in flexion extension as well as rotation no signs of muscle spasm noted MUSCULOSKELETAL/EXTREMITIES: There is no evidence of gross deformity full range of motion is noted in the hips and shoulders. SKIN: Pedal edema was noted bilaterally. NEUROLOGIC: Patient is awake alert and oriented x3 strength is symmetric patellar reflexes are 2+ bilaterally MEDICAL DECISION MAKING: The patient is a 53-year-old female who presented to the emergency department for an evaluation of chest pain. The patient described burning chest pain across her anterior chest. She was not tachycardic or hypoxic. The patient called her primary headlight assembler but was sent to the emergency department for further evaluation. She is also been experiencing syncope. 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 The patient had normal troponin. I discussed the patient's laboratory and radiographic studies with her. She has been using an [id number] fluid pill. I am concerned that this could be causing some of these syncopal issues. She is also had some fluctuations in her blood pressure. Given her risk factors as well as her occupation I do feel the patient would be a better candidate for inpatient management further workup of the syncope as well as the chest pain. I discussed the patient's condition with the on-call [facility]ist group. Triage Nursing notes reviewed. Prior medical records reviewed Vital Signs: reviewed and remarkable for no significant abnormalities Differential diagnosis: Vasovagal event, dehydration, infection, hypoglycemia, electrolyte abnormalities, cardiac sources, intracerebral event, pulmonary embolism, seizure, toxicologic, neurologic, as well as other pathologies. ER treatment provided: See below Diagnostics interpreted by me: ECG: EKG was obtained in the emergency department. My interpretation is normal sinus rhythm at 72 bpm. There was no ectopy. There is no acute ST segment abnormalities noted. This was compared to a tracing from April 14, 2024. No changes were noted. Cardiac Monitoring: An order was placed for continuous cardiac monitoring. The monitor shows a rate of 75 bpm with sinus rhythm. Laboratory studies: As stated above and show below. Imaging studies: See below. Radiographic imaging was reviewed by myself Consultation(s): I discussed this case with LOREN who is on for the [facility] hospitalist group. Past Med/Surg History Problem List (Updated 09/22/24 @ 13:38 by Jair Platt DO) Chest pain (Acute) Syncope (Acute) History of bilateral breast cancer Skin lesion of breast At high risk for breast cancer Hyperlipidemia Breast cancer screening by mammogram Cough (Acute) Unsheltered homelessness History of migraine History of arthroscopy of right shoulder p Right Shoulder Arthroscopy Rotator Cuff Repair Subacromial Decompression, Distal Clavicle Excision, Biceps Tenodesis Arthritis of right acromioclavicular joint Vitamin D deficiency Depression (Chronic) Chronic low back pain (Chronic) CKD (chronic kidney disease) stage 3, GFR 30-59 ml/min (Chronic) Diabetic gastroparesis Obesity HTN (hypertension) (Chronic) Asthma, moderate persistent (Chronic) Osteoarthritis (Chronic) Diabetes mellitus type 2 in obese (Chronic) diet controlled Seizure (Chronic) Has service dog Pt says they are 2/2 h/o CVA, unsure of details and does not follow with neurology any more. Per review of records, patient had extensive workup and neurology felt symptoms were not consistent with seizures, felt possibly a migrainous related syndrome. Smoker (Acute) Hx of spinal surgery plates and screws from between shoulders to tail bone Chronic kidney disease Gastric reflux syndrome Gastroparesis Tobacco use Asthma, moderate persistent Dyslipidemia History of uterine cancer Right sided numbness Chest pain syndrome PAF (paroxysmal atrial fibrillation) Adrenal adenoma right 13mm (incidental finding on CT chest done for lung cancer screening), under surveillance by PCP Rotator cuff tear, right History of alf anticoagulant use Biceps tendonitis on right Medical History History of pulmonary embolism History of stroke Hemisensory deficit Acute right hemiparesis Stroke-like episode Paroxysmal A-fib 1991 > "has not been heard since" History of paroxysmal atrial fibrillationnot well documented per cardiology records 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 Obstructive sleep apnea of adult BIPAP (occasional use) Vertigo COPD (chronic obstructive pulmonary disease) Dyslipidemia Multiple sclerosis History of DVT (deep vein thrombosis) LLE 4 yrs ago, unknown etiology On Eliquis PUD (peptic ulcer disease) Chronic constipation GERD (gastroesophageal reflux disease) Surgical History History of open reduction and internal fixation (ORIF) procedure left ankle + subsequent hardware removal Hx of angioplasty 1994, done in [place] History of anesthesia problem Awareness, "could feel them cutting me" Hx of arthroscopy of shoulder left H/O: hysterectomy Lap LISA with BSO/cystoscopy (02/23/20): Glidescope#3, ETT 7.5 at [facility]. No issues noted per post-op anesthesia progress note. Hx of abdominal surgery 1994 > from trauma incident History of bronchoscopy 3 yrs ago> [facility]; f/u dr esteves, [place] pulmonology H/O colonoscopy H/O esophagogastroduodenoscopy History of arthroscopy of knee bilat x4 H/O bilateral breast reduction surgery 2008 History of tubal ligation H/O exploratory laparotomy History of carpal tunnel surgery bilat Family History Mother , in her 70s of heart issues No problems noted. Father , in his 70s of cancer, unknown type No problems noted. Aunt , in her 70s of MS No problems noted. Other No pertinent family history in first degree relatives Social History Smoking Status: Current every day smoker Tobacco Type: Cigarettes and E-cigarettes / Vaping Age Started Using Tobacco: 6; packs per day: 4; Cigarettes Per Day: 10 cigs/day; used to smoke 4 PPD since she was 6 years old; Second Hand Exposure: No; Do You Dip or Chew Tobacco: No; Hx Alcohol Use: No Hx Substance Use: No Preferred Language: French Communication Ability: Effective Visual Impairment: No Limitations Hospice Physician Required: No Beliefs That Will Affect Care: None Current Living Situation: Other Current Living Situation Comment: [facility] current occupational status: unemployed and disabled 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 Diet: other Physical Activity Frequency: Daily Assistive Devices: Contacts, Denture - Upper and Denture - Lower Allergies Allergies Allergy/AdvReac Type Severity Reaction Status Date / Time bee venom protein (honey bee) Allergy Severe THROAT Verified 09/06/24 12:47 SWELLS morphine Allergy Severe ANAPHYLAXIS Verified 09/06/24 12:47 venom-wasp protein Allergy Severe THROAT Verified 09/06/24 12:47 SWELLS adhesive Allergy Intermediate Redness of Verified 09/06/24 12:47 Skin celecoxib Allergy Intermediate HIVES Verified 09/06/24 12:47 codeine Allergy Intermediate HIVES Verified 09/06/24 12:47 hydrocodone Allergy Intermediate HIVES Verified 09/06/24 12:47 nortriptyline Allergy Intermediate Hives Verified 09/06/24 12:47 NSAIDS (Non-Steroidal Allergy Intermediate HIVES, Verified 09/06/24 12:47 Anti-Inflamma DYSPEPSIA oxycodone Allergy Intermediate HIVES Verified 09/06/24 12:47 Penicillins Allergy Intermediate HIVES Verified 09/06/24 12:47 tramadol Allergy Intermediate HIVES Verified 09/06/24 12:47 diphenhydramine AdvReac Severe Difficulty Verified 09/06/24 12:47 urinating prazosin AdvReac Severe RAPID Verified 09/06/24 12:47 HEART RATE, NAUSEA/VOMIT prednisone AdvReac Severe heart races Verified 09/06/24 12:47 clindamycin AdvReac Intermediate gi upset, Verified 09/06/24 12:47 stomach pain metoclopramide AdvReac Intermediate HYPERACTIVI Verified 09/06/24 12:47 TY salicylates AdvReac Intermediate GI SYMPTOMS Verified 09/06/24 12:47 Home Meds Home Medications Medication Instructions Recorded Confirmed artificial tears solution eye drops 1 drp ophthalmic (eye) BID PRN Dry 12/15/23 09/22/24 Eyes famotidine 20 mg tablet 20 mg PO UD 12/15/23 09/22/24 latanoprost 0.005 % eye drops 1 drp OPB UD 12/15/23 09/22/24 multivitamin 1 tab PO DAILY 12/15/23 09/22/24 docusate sodium 100 mg capsule 100 mg PO DAILY 06/21/24 09/22/24 (Colace) epinephrine 0.3 mg/0.3 mL 0.3 mg IM ONCE PRN Allergic 06/21/24 09/22/24 injection, auto-injector Reaction Previous Rx's Medication Instructions Recorded aspirin 81 mg tablet,delayed 81 mg PO DAILY #90 tabs 07/20/23 release apixaban 5 mg tablet (Eliquis) 5 mg PO BID 90 days #180 tabs 06/21/24 atorvastatin 40 mg tablet 40 mg PO HS 90 days #90 tabs 06/21/24 carvedilol 6.25 mg tablet 6.25 mg PO BID #180 tabs 06/21/24 fluticasone propionate 50 1 - 2 spray intranasal BID PRN 06/21/24 mcg/actuation nasal Allergy Symptoms #48 grams spray,suspension (24 Hour Allergy Relief) isosorbide mononitrate 30 mg 60 mg (2 x 30 mg) PO QAM #180 tabs 06/21/24 tablet,extended release 24 hr loratadine 10 mg tablet (Allergy 10 mg PO DAILY 30 days #90 tabs 06/21/24 Relief (loratadine)) losartan 100 mg tablet (Cozaar) 100 mg PO QAM #90 tabs 06/21/24 montelukast 10 mg tablet 10 mg PO HS 90 days #90 tabs 06/21/24 (Singulair) nitroglycerin 400 mcg/spray 0.4 mg sublingual Q5M PRN chest 06/21/24 translingual pain #4.9 grams oxybutynin chloride 10 mg 10 mg PO HS #90 tabs 07/19/24 tablet,extended release 24 hr buspirone 5 mg tablet 5 mg PO BID #180 tabs 07/21/24 albuterol sulfate 90 mcg/actuation 1 puff inhalation QID PRN Wheezing 07/26/24 aerosol inhaler (Ventolin HFA) #6.7 grams Results & Data (ED) Vital Signs Vital Signs - 24 hr 09/22/24 09:09 09/22/24 09:27 09/22/24 09:45 Temperature 36.4 C L Temperature Source Temporal Artery Scan Pulse Rate - Lying Pulse Rate - Sitting Pulse Rate - Standing Pulse Rate 76 73 Pulse Rate from SpO2 Sensor 71 Pulse Rhythm Regular Respiratory Rate 18 18 17 Respiratory Effort / Characteristics Non-Labored Respiratory Depth Normal Respiratory Pattern Regular Blood Pressure - Lying Blood Pressure - Sitting Blood Pressure- Standing Blood Pressure 149/82 H Blood Pressure Mean 104 Pulse Oximetry 100 100 99 Oxygen Delivery Method Room Air Room Air Sepsis Recent Fever Within 48 Hours No Sepsis New/Unexplained Change in Mental Status N/A Sepsis Action Taken by Nursing No Action Required 09/22/24 09:48 09/22/24 09:54 09/22/24 10:00 Temperature Temperature Source Pulse Rate - Lying Pulse Rate - Sitting Pulse Rate - Standing Pulse Rate 71 68 Pulse Rate from SpO2 Sensor 69 Pulse Rhythm Respiratory Rate 21 Respiratory Effort / Characteristics Respiratory Depth Respiratory Pattern Blood Pressure - Lying Blood Pressure - Sitting Blood Pressure- Standing Blood Pressure 152/93 H Blood Pressure Mean 108 Pulse Oximetry 98 Oxygen Delivery Method Sepsis Recent Fever Within 48 Hours Sepsis New/Unexplained Change in Mental Status Sepsis Action Taken by Nursing 09/22/24 10:06 09/22/24 13:12 Temperature Temperature Source Pulse Rate - Lying 59 L Pulse Rate - Sitting 57 L Pulse Rate - Standing 69 Pulse Rate 69 Pulse Rate from SpO2 Sensor 69 Pulse Rhythm Respiratory Rate 20 Respiratory Effort / Characteristics Respiratory Depth Respiratory Pattern Blood Pressure - Lying 128/67 Blood Pressure - Sitting 159/82 H Blood Pressure- Standing 165/101 H Blood Pressure Blood Pressure Mean Pulse Oximetry 99 Oxygen Delivery Method Sepsis Recent Fever Within 48 Hours Sepsis New/Unexplained Change in Mental Status Sepsis Action Taken by Jail Medications Current Medication List: was personally reviewed by me Laboratory Data Attestation: I reviewed the patient's lab results. 09/22/24 09:09/22/24 09:25 Lab Results 09/22/24 09/22/24 09/22/24 Range/Units 09:25 09:42 10:25 WBC 7.92 (4.8-10.8) K/ul RBC 3.90 L (4.20-5.40) M/uL Hgb 12.5 (12.0-16.0) g/dl Hct 39.0 (37.0-47.0) % MCV 100.0 (80.0-100.0) fL MCH 32.1 (25.0-34.0) pg MCHC 32.1 (32.0-36.0) g/dL RDW Std Deviation 50.4 H (36.4-46.3) fL RDW Coeff of Jesus 13.7 (11.5-14.5) % Plt Count 247 (130-400) K/uL MPV 11.2 (9.4-12.4) fL Immature Gran % (Auto) 0.3 % Neut % (Auto) 67.1 % Lymph % (Auto) 23.7 % Hall % (Auto) 5.8 % Eos % (Auto) 2.1 % Baso % (Auto) 1.0 % Neut # (Auto) 5.31 (1.40-6.50) K/uL Lymph # (Auto) 1.88 (1.20-3.40) K/uL Hall # (Auto) 0.46 (0.11-0.59) K/uL Eos # (Auto) 0.17 (0.00-0.50) K/uL Baso # (Auto) 0.08 (0.00-0.20) K/uL Immature Gran # (Auto) 0.02 (0.01-0.20) K/uL PT 9.8 (9.0-12.0) Seconds INR 0.9 (0.9-1.1) APTT 26 (21-31) Seconds PTT Ratio 1.0 VBG pH 7.36 (7.36-7.41) VBG pCO2 49 (38-50) mmHg VBG pO2 23 mmHg VBG HCO3 28 mmol/L VBG O2 Saturation < 60.0 % VBG Base Excess 1.5 mEq/L Sodium 138 (136-145) mmol/L Potassium 3.8 (3.5-5.1) mmol/L Chloride 107 (98-107) mmol/L Carbon Dioxide 28 (21-32) mmol/L Anion Gap 3 (3-11) BUN 17 (6-23) mg/dl Creatinine 0.94 (0.6-1.2) mg/dl Est Cr Clr Drug Dosing 91.7 ml/min eGFR 72.11 BUN/Creatinine Ratio 18.1 (10-20) Glucose 86 (70-99(Fasting)) mg/dl Calcium 8.5 L (8.6-10.3) mg/dl Magnesium 1.7 (1.7-2.4) mg/dl Total Bilirubin 0.3 (0.2-1.0) mg/dl AST 20 (13-39) U/L ALT 18 (7-52) U/L Alkaline Phosphatase 70 (34-104) U/L Troponin I High Sens 3.3 (0-14) pg/ml B-Natriuretic Peptide 14 (0-100) pg/ml Total Protein 6.3 (6.0-8.3) gm/dl Albumin 3.5 (3.4-5.0) gm/dl Globulin 2.8 (2.5-4.0) gm/dl Albumin/Globulin Ratio 1.3 (0.9-2) Urine Color Urine Appearance (Clear) Urine pH (4.5-7.5) Ur Specific [place] (1.000-1.030) Urine Protein (Negative) Urine Glucose (UA) (Negative) Urine Ketones (Negative) Urine Blood (Negative) Urine Nitrite (Negative) Urine Bilirubin (Negative) Urine Urobilinogen (Negative) Ur Leukocyte Esterase (Negative) Urine WBC (Auto) (0-5) /hpf Urine RBC (Auto) (0-2) /hpf U Hyaline Cast (Auto) (0-2) /lpf U Epithel Cells (Auto) (0-2) /hpf Urine Bacteria (Auto) (None Seen) SARS-CoV-2 (PCR) NEGATIVE (Negative) Influenza Type A (PCR) Negative (Neg) Influenza Type B (PCR) Negative (Neg) RSV (RT-PCR) Negative (Neg) 09/22/24 Range/Units 13:15 WBC (4.8-10.8) K/ul RBC (4.20-5.40) M/uL Hgb (12.0-16.0) g/dl Hct (37.0-47.0) % MCV (80.0-100.0) fL MCH (25.0-34.0) pg MCHC (32.0-36.0) g/dL RDW Std Deviation (36.4-46.3) fL RDW Coeff of Jesus (11.5-14.5) % Plt Count (130-400) K/uL MPV (9.4-12.4) fL Immature Gran % (Auto) % Neut % (Auto) % Lymph % (Auto) % Hall % (Auto) % Eos % (Auto) % Baso % (Auto) % Neut # (Auto) (1.40-6.50) K/uL Lymph # (Auto) (1.20-3.40) K/uL Hall # (Auto) (0.11-0.59) K/uL Eos # (Auto) (0.00-0.50) K/uL Baso # (Auto) (0.00-0.20) K/uL Immature Gran # (Auto) (0.01-0.20) K/uL PT (9.0-12.0) Seconds INR (0.9-1.1) APTT (21-31) Seconds PTT Ratio VBG pH (7.36-7.41) VBG pCO2 (38-50) mmHg VBG pO2 mmHg VBG HCO3 mmol/L VBG O2 Saturation % VBG Base Excess mEq/L Sodium (136-145) mmol/L Potassium (3.5-5.1) mmol/L Chloride (98-107) mmol/L Carbon Dioxide (21-32) mmol/L Anion Gap (3-11) BUN (6-23) mg/dl Creatinine (0.6-1.2) mg/dl Est Cr Clr Drug Dosing ml/min eGFR BUN/Creatinine Ratio (10-20) Glucose (70-99(Fasting)) mg/dl Calcium (8.6-10.3) mg/dl Magnesium (1.7-2.4) mg/dl Total Bilirubin (0.2-1.0) mg/dl AST (13-39) U/L ALT (7-52) U/L Alkaline Phosphatase (34-104) U/L Troponin I High Sens (0-14) pg/ml B-Natriuretic Peptide (0-100) pg/ml Total Protein (6.0-8.3) gm/dl Albumin (3.4-5.0) gm/dl Globulin (2.5-4.0) gm/dl Albumin/Globulin Ratio (0.9-2) Urine Color Yellow Urine Appearance Clear (Clear) Urine pH 7.0 (4.5-7.5) Ur Specific [place] 1.010 (1.000-1.030) Urine Protein Negative (Negative) Urine Glucose (UA) Negative (Negative) Urine Ketones Negative (Negative) Urine Blood Negative (Negative) Urine Nitrite Negative (Negative) Urine Bilirubin Negative (Negative) Urine Urobilinogen Negative (Negative) Ur Leukocyte Esterase Trace H (Negative) Urine WBC (Auto) 0-5 (0-5) /hpf Urine RBC (Auto) 0-2 (0-2) /hpf U Hyaline Cast (Auto) 0-2 (0-2) /lpf U Epithel Cells (Auto) 0-2 (0-2) /hpf Urine Bacteria (Auto) None Seen (None Seen) SARS-CoV-2 (PCR) (Negative) Influenza Type A (PCR) (Neg) Influenza Type B (PCR) (Neg) RSV (RT-PCR) (Neg) Imaging Data Attestation: I personally reviewed and interpreted this imaging study as follows: My Impression: 1 view chest x-ray was obtained in the emergency department. My interpretation is no free air or definite infiltrate, final report below. Radiologist's Impression: Chest X-Ray 09/22/24 09:27 XR chest 1V portable CLINICAL HISTORY: Dyspnea COMPARISON STUDY: Chest CT August 22, 2022. Chest radiograph April 15, 2024. FINDINGS: Lung volumes are normal. Lungs are clear. Increased attenuation projecting over the lower lungs is likely related to overlying soft tissues. There is no pneumothorax or pleural effusion. Cardiac size is stable. Mediastinal contours are normal. There is no evidence for pulmonary edema. IMPRESSION: No acute cardiopulmonary findings. ACT 112: Negative or not required by law. Electronically signed by: Clarke Bull M.D. 09/22/2024 10:[address] 09/22/24 09:27 CT head/brain wo con CLINICAL HISTORY: 53 years-old Female with headache and syncope. Acute headache TECHNIQUE: Multiple axial CT images of the head were obtained without contrast. A dose lowering technique was utilized adhering to the principles of ALARA. CT DOSE: 625.8 mGy.cm COMPARISON: 12/15/[address], brain MRI 12/16/2023 FINDINGS: No acute intracranial hemorrhage, midline shift, intracranial mass, hydrocephalus, territorial ischemia or abnormal extra-axial collection. The calvarium is intact. The paranasal sinuses, mastoid air cells, and middle ear cavities are clear. IMPRESSION: No acute intracranial abnormality. ACT 112: Negative or not required by law. The above report was generated using voice recognition software. It may contain grammatical, syntax or spelling errors. Electronically signed by: Frank Solorio M.D. 09/22/2024 10:09 AM Discharge Plan Visit Data Chief Complaint: Referred by Doctor Stated Complaint: [employer] REFFERED ED Provider: Jair Platt Discharge Problem: Syncope, Chest pain Patient Disposition: Being Evaluated by Hospitalist Forms Stand Alone Forms: [facility] Insurance Prescriptions Prescriptions: No Action aspirin 81 mg tablet,delayed release (DR/EC) 81 mg PO DAILY Qty: 90 3RF Rx Instructions: otc unable to verify oxybutynin chloride 10 mg tablet extended release 24hr 10 mg PO HS Qty: 90 3RF Rx Instructions: filled 2/3 30 day buspirone 5 mg tablet 5 mg PO BID Qty: 180 2RF Rx Instructions: filled 2/3 90 day supply albuterol sulfate [Ventolin HFA] 90 mcg/actuation HFA aerosol inhaler 1 puff INHALATION QID PRN (Reason: Wheezing) Qty: 6.7 2RF epinephrine 0.3 mg/0.3 mL auto-injector 0.3 mg IM ONCE PRN (Reason: Allergic Reaction) docusate sodium [Colace] 100 mg capsule 100 mg PO DAILY Rx Instructions: otc unable to verify atorvastatin 40 mg tablet 40 mg PO HS 90 Days Qty: 90 3RF Rx Instructions: filled 09/14 90 day Eliquis 5 mg tablet 5 mg PO BID 90 Days Qty: 180 3RF Rx Instructions: filled 09/09 30 day supply carvedilol 6.25 mg tablet 6.25 mg PO BID Qty: 180 1RF Rx Instructions: last filled 06/21 90 day fluticasone propionate [24 Hour Allergy Relief] 50 mcg/actuation spray,suspension 1 - 2 spray INTNAS BID PRN (Reason: Allergy Symptoms) Qty: 48 1RF Rx Instructions: filled 06/21 30 day isosorbide mononitrate 30 mg tablet extended release 24 hr 60 mg PO QAM Qty: 180 3RF Rx Instructions: filled 09/14 30 day supply loratadine [Allergy Relief (loratadine)] 10 mg tablet 10 mg PO DAILY 30 Days Qty: 90 3RF Rx Instructions: filled 09/09 90 day losartan [Cozaar] 100 mg tablet 100 mg PO QAM Qty: 90 3RF Rx Instructions: filled 09/20 90 day montelukast [Singulair] 10 mg tablet 10 mg PO HS 90 Days Qty: 90 3RF Rx Instructions: filled 09/14 90 day nitroglycerin 400 mcg/spray spray,non-aerosol 0.4 mg sublingual Q5M PRN (Reason: chest pain) Qty: 4.9 5RF Rx Instructions: do not exceed 3 doses per episode multivitamin Tablet 1 tab PO DAILY Rx Instructions: otc unable to verify latanoprost 0.005 % Drops 1 drp OPB UD Rx Instructions: 1 drop opb hs. last filled 07/13 18 day supply artificial tears solution Drops 1 drp ophthalmic (eye) BID PRN (Reason: Dry Eyes) Rx Instructions: otc unable to verify famotidine 20 mg Tablet 20 mg PO UD Rx Instructions: 20 mg po daily. OTC/no fill history, unable to verify Referrals Referrals: Gabriela Chinchilla MD [Primary Care Provider] - Discharge Problem: Syncope Qualifiers: Syncope type: unspecified Qualified Code(s): R55 - Syncope and collapse Chest pain Qualifiers: Chest pain type: unspecified Qualified Code(s): R07.9 - Chest pain, unspecified
[2024-09-22 09:55] LABS: Base Excess VBG 1.5 mEq/L; HCO3 VBG 28 mmol/L; Oxygen Saturation VBG < 60.0 %; PCO2 VBG 49 mmHg (38-50); PO2 VBG 23 mmHg; pH VBG 7.36 (7.36-7.41)
--- NOTE | 2024-09-22 10:05 | XRay Report ---
XR chest 1V portable CLINICAL HISTORY: Dyspnea COMPARISON STUDY: Chest CT August 22, 2022. Chest radiograph April 15, 2024. FINDINGS: Lung volumes are normal. Lungs are clear. Increased attenuation projecting over the lower l ungs is likely related to overlying soft tissues. There is no pneumothorax or pleural effusion. Cardi ac size is stable. Mediastinal contours are normal. There is no evidence for pulmonary edema. IMPRESSION: No acute cardiopulmonary findings. ACT 112: Negative or not required by law. Electronically signed by: Clarke Bull M.D. 09/22/2024 10:03 AM
[2024-09-22 10:09] LABS: Albumin Globulin Ratio 1.3 (0.9-2); Albumin Level 3.5 gm/dl (3.4-5.0); BUN Creatinine Ratio 18.1 (10-20); Bilirubin,Total 0.3 mg/dl (0.2-1.0); Calcium 8.5 mg/dl (8.6-10.3); Creatinine Clr Calc Pharmacy 91.7 ml/min; Globulin 2.8 gm/dl (2.5-4.0); Magnesium 1.7 mg/dl (1.7-2.4); Potassium 3.8 mmol/L (3.5-5.1); Total Protein 6.3 gm/dl (6.0-8.3)
--- NOTE | 2024-09-22 10:10 | CT Scan Report ---
CT head/brain wo con CLINICAL HISTORY: 53 years-old Female with headache and syncope. Acute headache TECHNIQUE: Multiple axial CT images of the head were obtained without contrast. A dose lowering tech nique was utilized adhering to the principles of ALARA. CT DOSE: 625.8 mGy.cm COMPARISON: 12/15/[address], brain MRI 12/16/2023 FINDINGS: No acute intracranial hemorrhage, midline shift, intracranial mass, hydrocephalus, territorial ischem ia or abnormal extra-axial collection. The calvarium is intact. The paranasal sinuses, mastoid air cells, and middle ear cavities are clear . IMPRESSION: No acute intracranial abnormality. ACT 112: Negative or not required by law. The above report was generated using voice recognition software. It may contain grammatical, syntax o r spelling errors. Electronically signed by: Frank Solorio M.D. 09/22/2024 10:09 AM
[2024-09-22 10:15] LABS: Troponin I High Sensitivity 3.3 pg/ml (0-14)
[2024-09-22 10:38] LABS: Basophils # (auto) 0.08 K/uL (0.00-0.20); Eosinophils # (auto) 0.17 K/uL (0.00-0.50); Eosinophils % (auto) 2.1 %; Hemoglobin 12.5 g/dl (12.0-16.0); Immature Granulocytes # (auto) 0.02 K/uL (0.01-0.20); Immature Granulocytes % (auto) 0.3 %; Lymphocytes # (auto) 1.88 K/uL (1.20-3.40); Lymphocytes % (auto) 23.7 %; Mean Corpuscular Hemoglobin 32.1 pg (25.0-34.0); Mean Corpuscular Hgb Conc 32.1 g/dL (32.0-36.0); Mean Platelet Volume 11.2 fL (9.4-12.4); Monocytes # (auto) 0.46 K/uL (0.11-0.59); Monocytes % (auto) 5.8 %; Neutrophils # (auto) 5.31 K/uL (1.40-6.50); Neutrophils % (auto) 67.1 %; Platelet Count 247 K/uL (130-400); RDW Coefficient of Variation 13.7 % (11.5-14.5); RDW Standard Deviation 50.4 fL (36.4-46.3); White Blood Count 7.92 K/ul (4.8-10.8)
[2024-09-22 10:48] LABS: INR 0.9 (0.9-1.1); Partial Thromboplastin Time 26 Seconds (21-31); Prothrombin Time 9.8 Seconds (9.0-12.0)
[2024-09-22 11:13] LABS: Influenza A virus by PCR Negative (Neg); Influenza B virus by PCR Negative (Neg); RSV by PCR Negative (Neg); SARS CoV2 RNA(COVID-19) Ceph NEGATIVE (Negative)
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
--- NOTE | 2024-09-22 13:20 | Electrocardiogram Report ---
Test Reason : Blood Pressure : */* mmHG Vent. Rate : 72 BPM Atrial Rate : 72 BPM P-R Int : 142 ms QRS Dur : 88 ms QT Int : 416 ms P-R-T Axes : 59 33 50 degrees QTcB Int : 455 ms Normal sinus rhythm Normal ECG When compared with ECG of 14-Apr-2024 22:07, No significant change was found Confirmed by Jair Meeks ([id number]) on 09/22/2024 1:20:05 PM Referred By: Gabriela Chinchilla Confirmed By: Jair Meeks
[2024-09-22 13:28] LABS: Appearance Urine Clear (Clear); Bacteria Urine Automated None Seen (None Seen); Bilirubin Urine Negative (Negative); Blood Urine Negative (Negative); Cast Urine Automated 0-2 /lpf (0-2); Color Urine Yellow; Epithelial Cell Urine Auto 0-2 /hpf (0-2); Glucose Urine UA Negative (Negative); Ketones Urine Negative (Negative); Leukocyte Esterase Urine Trace (Negative); Nitrite Urine Negative (Negative); Protein Urine Negative (Negative); RBC Urine Automated 0-2 /hpf (0-2); Urobilinogen Urine Negative (Negative); WBC Urine Automated 0-5 /hpf (0-5)
[2024-09-22 13:51] LABS: Thyroid Stimulating Hormone 2.225 uIu/ml (0.300-4.500)
[2024-09-22] MEDS: APIXABAN 5 MG TABLET PO ONE (14:09)
[2024-09-22] MEDS: OPTIRAY 320 125ml IV ONE (14:29)
--- NOTE | 2024-09-22 15:10 | CT Scan Report ---
CT angio chest PE protocol CT DOSE: 889.38 mGy.cm HISTORY: 53 years-old Female with PE. Acute shortness of breath TECHNIQUE: Multiple CTA images of the chest were obtained after the intravenous administration of 115 ml Optiray. Coronal and sagittal MIPS were obtained from the axial data set and were submitted for review. All measurements were obtained according to NASCET criteria. A dose lowering technique was u tilized adhering to the principles of ALARA. COMPARISON: 08/22/2022 FINDINGS: CTA: Heart is mildly enlarged. No pericardial effusion. Mild atherosclerosis of the aorta without aneurysm or dissection. Unremarkable pulmonary artery. No pulmonary emboli identified. CT CHEST: Unremarkable thyroid. No pathologically enlarged lymph nodes. Nonspecific borderline wall thickening of the mid to distal esophagus. Opacified venous collaterals of the right upper chest wall with appar ent narrowing of the right subclavian and axillary veins, partially imaged. This is likely chronic. No pneumothorax, pleural effusion or lobar airspace consolidation. Mild bronchial wall thickening wit h mosaic attenuation and groundglass densities of the lungs. No suspicious pulmonary nodules or bart s. Central airways are patent. No acute upper abdominal abnormality. Unremarkable soft tissues. No acute fracture. IMPRESSION: 1. No pulmonary emboli identified. 2. Bronchial wall thickening with suggestion of atelectasis with air trapping. 3. No pleural effusion or airspace consolidation typical for pneumonia. ACT 112: Negative or not required by law. The above report was generated using voice recognition software. It may contain grammatical, syntax o r spelling errors. Electronically signed by: Frank Solorio M.D. 09/22/2024 3:09 PM
--- NOTE | 2024-09-22 16:19 | XCELERA ---
[id number] \\[id number]
[2024-09-22] MEDS ORDERED: EPINEPHrine INJ 1 MG/ML AMP IM PRN (16:52)
[2024-09-22] MEDS: carvediloL 6.25 MG TAB PO SCH (19:41)
[2024-09-22] MEDS: ACETAMINOPHEN 325 MG TAB PO PRN (21:01)
[2024-09-22] MEDS: LATANOPROST 0.005% OP SOLN 2.5 ML BTL OPB SCH (21:01)
[2024-09-22] MEDS: APIXABAN 5 MG TABLET PO SCH (21:02)
[2024-09-22] MEDS: busPIRone 5 MG TAB PO SCH (21:02)
[2024-09-22] MEDS: ATORVASTATIN 40 MG TAB PO SCH (21:02)
[2024-09-22] MEDS: OXYBUTYNIN CHLORIDE XL 5 MG TABCR PO SCH (21:02)
[2024-09-22] MEDS: MONTELUKAST SODIUM 10 MG TABLET PO SCH (23:13)
[2024-09-23 04:04] VITALS: O2SAT 99
[2024-09-23 06:33] LABS: Basophils # (auto) 0.04 K/uL (0.00-0.20); Basophils % (auto) 0.7 %; Eosinophils # (auto) 0.24 K/uL (0.00-0.50); Eosinophils % (auto) 4.3 %; Hematocrit (blood only) 33.2 % (37.0-47.0); Immature Granulocytes # (auto) 0.02 K/uL (0.01-0.20); Immature Granulocytes % (auto) 0.4 %; Lymphocytes # (auto) 2.08 K/uL (1.20-3.40); Lymphocytes % (auto) 37.1 %; Mean Corpuscular Hemoglobin 32.7 pg (25.0-34.0); Mean Corpuscular Hgb Conc 33.1 g/dL (32.0-36.0); Mean Corpuscular Volume 98.8 fL (80.0-100.0); Mean Platelet Volume 11.3 fL (9.4-12.4); Monocytes # (auto) 0.46 K/uL (0.11-0.59); Monocytes % (auto) 8.2 %; Neutrophils # (auto) 2.76 K/uL (1.40-6.50); Neutrophils % (auto) 49.3 %; Platelet Count 204 K/uL (130-400); RDW Coefficient of Variation 13.6 % (11.5-14.5); RDW Standard Deviation 50.2 fL (36.4-46.3); Red Blood Count 3.36 M/uL (4.20-5.40)
[2024-09-23 06:59] LABS: BUN Creatinine Ratio 17.6 (10-20); Calcium 8.2 mg/dl (8.6-10.3); Creatinine Clr Calc Pharmacy 95.3 ml/min; Magnesium 1.7 mg/dl (1.7-2.4); Potassium 3.8 mmol/L (3.5-5.1)
[2024-09-23] MEDS: LORATADINE 10 MG TAB PO SCH (07:46)
[2024-09-23] MEDS: ISOSORBIDE MONO EXTENDED REL 60 MG TABCR PO SCH (07:47)
[2024-09-23] MEDS: LOSARTAN POTASSIUM 50 MG TAB PO SCH (07:48)
[2024-09-23] MEDS: FAMOTIDINE 20 MG TAB PO SCH (07:49)
[2024-09-23] MEDS: ASPIRIN 81 MG ECTAB PO SCH (09:37)
[2024-09-23] MEDS: DOCUSATE SODIUM 100 MG CAP PO SCH (09:38)
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
[2024-09-23 11:47] VITALS: PULSE 49; RESP 20; TEMP 98
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
[2024-09-23 15:51] VITALS: BP 118/62
== END 2024-09-23 16:27 | disposition home or self-care (01) | DRG 312 ==
LOC: EDINP 09:07 → ED 09:07 → SUATTDRO 13:52 → 2W 17:19